=== PATIENT | female | born 1955 | race African-American/Black ===

== ENCOUNTER 2016-04-03 12:55 | Emergency (ER) | payer OTHER ==
[~2016-04-03] VITALS: Wt 132.0 kg
[~2016-04-03 12:55] MED LIST: ALLO300T2 PO; ALPR2TAB PO; AMIO200T2 PO; ATEN50TA PO; CALCITROL; FURO20TA3 PO; KEN1O TOP; LEVO75TA5 PO; OMEP20CA16 PO; POTA10TA37 PO; RIVA15TA PO; VITAMIN D PO
[2016-04-03] MEDS ORDERED: CLOPIDOGREL 75 MG TAB PO ONE (15:00)
[2016-04-03 15:34] LABS: BASOPHILS % 0.7 % (0.0-2.0); EOSINOPHILS # 0.1 10^3/ul (0.0-0.5); EOSINOPHILS % 2.6 % (0.0-7.0); HEMATOCRIT 36.5 % (37.0-47.0); HEMOGLOBIN 11.7 g/dl (12.0-16.0); LYMPHOCYTES # 1.2 10^3/ul (0.8-2.9); LYMPHOCYTES % 20.2 % (15.0-51.0); MEAN CORPUSCULAR HEMOGLOBIN 27.6 pg (29.0-33.0); MEAN CORPUSCULAR HGB CONC 32.2 g/dl (32.0-37.0); MEAN CORPUSCULAR VOLUME 85.8 fl (82.0-101.0); MEAN PLATELET VOLUME 9.1 fl (7.4-10.4); MONOCYTE # 0.4 10^3/ul (0.3-0.9); MONOCYTES % 6.8 % (0.0-11.0); NEUTROPHILS % 69.7 % (39.0-77.0); PLATELET COUNT 263 10^3/UL (140-440); RED BLOOD COUNT 4.25 10^6/ul (4.20-5.40); RED CELL DISTRIBUTION WIDTH 17.2 % (11.5-14.5); UNCORRECTED WBC 5.8 10^3/ul (4.8-10.8); WHITE BLOOD COUNT 5.8 10^3/ul (4.8-10.8)
--- NOTE | 2016-04-03 15:48 | RADRPT ---
PROCEDURE: XR Chest. CLINICAL INDICATION: Chest pain TECHNIQUE: Chest AP portable. COMPARISON: 10/24/2014 FINDINGS: Left-sided dual lead pacemaker. The mediastinal structures are unremarkable. There is calcification of the thoracic aorta (consiste nt with atherosclerosis). There is mild cardiomegaly. The pulmonary vascularity is normal. The bharat ng holm are unremarkable. No consolidation is identified. The pleural spaces are unremarkable. The osseous structures are unremarkable. IMPRESSION: Calcification of the thoracic aorta (consistent with atherosclerosis) Mild cardiomegaly No active intrathoracic disease RPTAT: HGDB .Shamir Gonzalez MD, Date Time Electronically viewed and signed by .Shamir Gonzalez MD, on 04/03/2016 15:47 .B/
[2016-04-03 15:56] LABS: CONDITION 1; LH ANALYZER COMMENTS 1
[2016-04-03 16:00] LABS: CHLORIDE 101 mmol/L (97-110); POTASSIUM 4.4 mmol/L (3.5-5.1); SODIUM 143 mmol/L (135-144)
[2016-04-03 16:03] LABS: ANION GAP 12 (8-16); BLOOD UREA NITROGEN 25 mg/dl (7-20); CALCIUM 9.7 mg/dl (8.4-10.2); CARBON DIOXIDE 34 mmol/L (21-31); CREATININE 1.83 mg/dl (0.44-1.00); GLUCOSE 102 mg/dl (70-220)
[2016-04-03 16:18] LABS: TROPONIN-I < 0.012 ng/ml (0.00-0.12)
[2016-04-03] MEDS ORDERED: morphine 10 MG INJ IV ONE (16:30)
[2016-04-03 17:45] LABS: INR 1.15; PROTIME 14.7 Sec (12.2-14.2); PT RATIO 1.1
[2016-04-03 17:46] LABS: CREATINE KINASE 47 IU/L (23-200); PARTIAL THROMBOPLASTIN TIME 31.5 Sec (25.0-35.0)
[2016-04-03 17:56] LABS: CK-MB 0.29 ng/ml (0.0-2.4)
[2016-04-03] MEDS ORDERED: DICLOFENAC SODIUM 37.5 MG/ML VIAL IV STA (18:04)
[2016-04-03 18:18] LABS: TROPONIN-I < 0.012 ng/ml (0.00-0.12)
[2016-04-03] MEDS ORDERED: HYDR-906 PO (19:26)
[2016-04-03] MEDS ORDERED: NAPR-688 PO (19:26)
[2016-04-03 19:40] VITALS: BP 144/90; PULSE 80; RESP 17; TEMP 98
--- NOTE | 2016-04-03 19:40 | ERD ---
ER Documentation Chief Complaint Date/Time DATE: 04/03/16 TIME: 19:29 Chief Complaint CHEST PAIN X2 DAYS, NO SOB, HX OF A-FIB, MO HPI This 60-year-old female presented with 2 days of left-sided chest pain made worse by moving her arm and pushing on it. States that she also started working out recently. Patient does have a sense of cardiac history including myocardial infarction and has a pacemaker. Denies any shortness of breath nausea or vomiting. ROS All systems reviewed and are negative except as per history of present illness. Medications Home Meds Active Scripts Hydrocodone/Acetaminophen ([place] 5-325 Tablet) 1 Each Tablet, 1 EACH PO Q6, #18 TAB Prov:RAHEELPATRICIA DO 04/03/16 Naproxen* (Naproxen*) 500 Mg Tablet, 500 MG PO BID, #20 TAB Prov:RAHEELPATRICIA DO 04/03/16 Amiodarone Hcl* (Amiodarone Hcl*) 200 Mg Tablet, 200 MG PO DAILY for 30 Days, TAB Prov:YUVAL VOGT VICE PRESIDENT MEDIA RELATIONS 10/25/14 Furosemide* (Furosemide*) 20 Mg Tablet, 20 MG PO DAILY for 30 Days, TAB Prov:YUVAL VOGT VICE PRESIDENT MEDIA RELATIONS 10/25/14 Rivaroxaban* (Xarelto*) 15 Mg Tablet, 15 MG PO WITH DINNER for 30 Days Prov:DESTINI BRAXTON 08/23/14 Reported Medications [Vitamin D] No Conflict Check, PO DAILY 01/01/16 [Calcitrol] No Conflict Check, DAILY 01/01/16 Triamcinolone Acetonide* (Kenalog*) 0.1%-15GM Oint, 1 APPLIC TOP BID, EA 10/10/14 Potassium Chloride* (K-Dur*) 10 Meq Tab.prt.sr, 10 MEQ PO DAILY, TAB 08/22/14 Levothyroxine Sodium* (Levothyroxine Sodium*) 75 Mcg Tablet, 75 MCG PO AC BREAKFAST, TAB 08/22/14 Atenolol* (Atenolol*) 50 Mg Tablet, 50 MG PO DAILY, TAB 08/22/14 Alprazolam* (Xanax*) 2 Mg Tablet, 2 MG PO DAILY Y for ANXIETY, TAB 08/22/14 Allopurinol* (Allopurinol*) 300 Mg Tablet, 300 MG PO DAILY, TAB 08/22/14 Omeprazole* (Omeprazole*) 20 Mg Capsule.dr, 20 MG PO BID, CAP 01/18/14 Allergies Allergies: Coded Allergies: aspirin (Verified Allergy, Mild, INTOLERANCE, 01/01/16) enalaprilat (Verified Allergy, Mild, COUGHING, 01/01/16) tramadol (Verified Allergy, Unknown, VOMITTING, 01/01/16) PMhx/Soc History of Surgery: Yes (BRAIN TUMOR REMOVED,PACEMAKER INSERTION) Anesthesia Reaction: No Hx Neurological Disorder: No Hx Respiratory Disorders: Yes (ATHMA) Hx Cardiac Disorders: Yes (MO ?, STROKE WITH RT SIDED WEAKNESS,A FIB) Hx Psychiatric Problems: No Hx Miscellaneous Medical Probl: Yes (INSOMNIA) Hx Alcohol Use: No Hx Substance Use: No Hx Tobacco Use: Yes (QUIT 20 YRS AGO) Smoking Status: Unknown if ever smoked Physical Exam Vitals Vital Signs Date Time Temp Pulse Resp B/P Pulse Ox O2 Delivery O2 Flow Rate FiO2 04/03/16 18:37 98.0 71 17 140/72 98 Room Air 04/03/16 16:05 Nasal Cannula 3 04/03/16 13:03 97.8 74 17 173/94 98 Physical Exam Const: [] No distress Head: Atraumatic Eyes: Normal Conjunctiva ENT: Normal External Ears, Nose and Mouth. Neck: Full range of motion..~ No meningismus. Resp: Clear to auscultation bilaterally Cardio: Regular rate and rhythm, no murmurs Chest wall exam: Tenderness to palpation over left costochondral junction. Pain reproduced by flexion against resistance of left arm. Abd: Soft, non tender, non distended. Normal bowel sounds Skin: No petechiae or rashes Back: No midline or flank tenderness Ext: No cyanosis, or edema Neur: Awake and alert and oriented 3, no focal deficits Psych: Normal Mood and Affect Result Diagram: 04/03/16 1514 04/03/16 1514 Results 24 hrs Laboratory Tests Test 04/03/16 15:14 04/03/16 17:00 Anion Gap 12 Basophils # 0.010^3/ul Basophils % 0.7% Blood Morphology Comment Blood Urea Nitrogen 25mg/dl Calcium Level 9.7mg/dl Carbon Dioxide Level 34mmol/L Chloride Level 101mmol/L Creatinine 1.83mg/dl Eosinophils # 0.110^3/ul Eosinophils % 2.6% Glucose Level 102mg/dl Hematocrit 36.5% Hemoglobin 11.7g/dl Lymphocytes # 1.210^3/ul Lymphocytes % 20.2% Mean Corpuscular Hemoglobin 27.6pg Mean Corpuscular Hemoglobin Concent 32.2g/dl Mean Corpuscular Volume 85.8fl Mean Platelet Volume 9.1fl Monocytes # 0.410^3/ul Monocytes % 6.8% Neutrophils # 4.010^3/ul Neutrophils % 69.7% Nucleated Red Blood Cells # 0.010^3/ul Nucleated Red Blood Cells % 0.0/100WBC Platelet Count 41530^3/UL Potassium Level 4.4mmol/L Red Blood Count 4.2510^6/ul Red Cell Distribution Width 17.2% Sodium Level 143mmol/L Troponin I < 0.012ng/ml < 0.012ng/ml White Blood Count 5.810^3/ul Activated Partial Thromboplast Time 31.5Sec Creatine Kinase 47IU/L Creatine Kinase Index 0.6 Creatinine Kinase MB (Mass) 0.29ng/ml INR International Normalized Ratio 1.15 Prothrombin Time 14.7Sec Prothrombin Time Ratio 1.1 Current Medications Medications (Trade) Dose Ordered Sig/Vidhi Route PRN Reason Start Time Stop Time Status Last Admin Dose Admin Clopidogrel Bisulfate (plaVIX) 300 mg ONCE ONCE PO 04/03/16 15:00 04/03/16 15:01 DC 04/03/16 15:23 Morphine Sulfate (morphine) 6 mg ONCE ONCE IV 04/03/16 16:30 04/03/16 16:31 DC 04/03/16 16:35 Diclofenac Sodium (Dyloject) 37.5 mg ONCE STAT IV 04/03/16 18:04 04/03/16 18:05 DC 04/03/16 18:18 Procedures/MDM Likely acute costochondritis. Physical exam and history are consistent with costochondritis with newly working out with weights as well as reproducible chest pain that is worse with arm movement. Patient does have extensive cardiac history for cardiac workup was performed including a 2 set of troponin both of which were undetectable in the blood. Patient had a paced EKG. creatinine is elevated but at baseline. Very mildly elevated white count however no signs of infection. Going to discharge with naproxen, [place]. Primary care follow-up with the next couple of days. Do not believe the patient is currently experiencing acute coronary syndrome but I have told her return emergency room for any acute change. EKG interpretation: Paced rhythm of 70, no further interpretation possible monitoring engineer interpretation: Paced rhythm rate of 70 Chest x-ray interpretation: No acute process no infiltrate no widened mediastinum, no pulmonary edema, no fractures per Departure Diagnosis: Primary Impression: Costochondritis, acute Additional Impression: Chest pain Condition: Stable Patient Instructions: Chest Pain, Uncertain Cause, Chest Wall Pain, Costochondritis Additional Instructions: Call your primary care doctor TOMORROW for an appointment during the next 2-3 days.See the doctor sooner or return here if your condition worsens before your appointment time. PATRICIA PICKERING DO Apr 03, 2016 19:39
== END 2016-04-03 19:41 | disposition home or self-care (01) ==
LOC: E/R 12:55
DX: M94.0 Chondrocostal junction syndrome [Tietze] (principal); J45.909 Unspecified asthma, uncomplicated; E03.9 Hypothyroidism, unspecified; Z95.0 Presence of cardiac pacemaker
CPT/HCPCS: 36415; 71010; 80048; 82550; 82553; 84484; 85025; 85610; 85730; 93005; 96374; 96375; J2270; Z7502; Z7610

== ENCOUNTER 2016-04-14 03:49 | Observation (INO) | payer OTHER ==
[~2016-04-14] VITALS: Ht 170.2 cm; Wt 132.9 kg
[2016-04-14] VITALS (9 sets, daily range): BP systolic 119–156; BP diastolic 56–86; PULSE 60–70; RESP 18–20; BMI 45.4
[~2016-04-14 03:49] MED LIST changes: +HYDR-906 PO; +NAPR-688 PO
[2016-04-14] MEDS ORDERED: morphine 2 MG INJ IV PRN (12:00)
[2016-04-14] MEDS ORDERED: ONDANSETRON 4 MG TAB PO PRN (12:00)
[2016-04-14] MEDS ORDERED: NITROGLYCERIN (SL) 0.4 MG TAB SL PRN (12:00)
[2016-04-14] MEDS ORDERED: DOCUSATE SODIUM 100 MG CAP PO PRN (12:00)
[2016-04-14] MEDS ORDERED: HYDROCODONE/APAP (5/325) TAB PO PRN ×2 (12:00→23:00)
[2016-04-14] MEDS ORDERED: NACL 0.9% 3 ML SYG IV SCH (12:00)
[2016-04-14] MEDS ORDERED: ALPRAZOLAM 1 MG TAB PO PRN (12:00)
[2016-04-14 13:19] LABS: CREATINE KINASE 61 IU/L (23-200)
[2016-04-14] MEDS: AMIODARONE 200 MG TAB PO SCH (13:25)
[2016-04-14] MEDS: ATENOLOL 50 MG TAB PO SCH (13:25)
[2016-04-14 13:31] LABS: CK-MB 1.35 ng/ml (0.0-2.4)
[2016-04-14 13:46] LABS: TROPONIN-I < 0.012 ng/ml (0.00-0.12)
--- NOTE | 2016-04-14 15:16 | CONS ---
Date/Time of Note Date/Time of Note DATE: 04/14/16 TIME: 15:07 Assessment/Plan Assessment/Plan Additional Assessment/Plan Chest wall and back pain Hypertension Paroxysmal atrial fibrillation History of pacemaker -Patient with reproducible chest pain with touching back and chest wall. Denies exertional component in symptoms with left arm movements. Troponins from outside facility were negative, d-dimer was 469 which is in the normal range for their facility. Hemoglobin 10.9. Current troponin at our facility is negative. Symptoms do not appear cardiac in origin. Would evaluate other noncardiac causes of patient's back and chest pain. Consultation Date/Type/Reason Admit Date/Time Apr 14, 2016 at 08:26 Type of Consultation: cv Reason for Consultation Back and chest pain Hx of Present Illness This is a 60-year-old female with past medical history of pacemaker, paroxysmal atrial fibrillation, hypertension who presents with back and left-sided chest pain. Pain has been off and on over the past week and a half. Pain is sharp in nature, worse with movement of the left arm, leaning to the left side, touching her back and touching her chest. Exertion does not improve or worsen her symptoms. She denies any dizziness, lightheadedness, palpitations, abdominal pain. 12 point review of systems was performed with all pertinent positives and negatives mentioned above and all else is negative Past Medical History Paroxysmal atrial fibrillation Hypertension Chronic kidney disease Past Surgical History Past Surgical Hx: other (Pacemaker) Exam/Review of Systems Vital Signs Vitals Vital Signs Date Time Temp Pulse Resp B/P Pulse Ox O2 Delivery O2 Flow Rate FiO2 04/14/16 12:55 60 04/14/16 11:48 98.2 20 125/72 96 04/14/16 08:45 Room Air Exam No apparent distress Constitutional: alert, obese, oriented Head: normocephalic Neck: supple Respiratory: other (Coarse breath sounds bilaterally, no wheezing) Cardiovascular: other (S1-S2 heard, no murmurs appreciated), regular rate and rhythm Gastrointestinal: bowel sounds, non-tender, other (No guarding), soft Musculoskeletal: other (Pain with palpation of left sided chest wall, left back and movement of left arm.) Extremities: edema (Trace), other (No cyanosis) Results Results 24 hrs Laboratory Tests Test 04/14/16 12:52 Creatine Kinase 61 Creatine Kinase Index 2.2 Creatinine Kinase MB (Mass) 1.35 Troponin I < 0.012 Medications Medications Current Medications Allopurinol (Zyloprim) 300 mg DAILY PO ; Start 04/15/16 at 09:00 Alprazolam (Xanax) 2 mg DAILY PRN PO ANXIETY; Start 04/14/16 at 12:00 Amiodarone HCl (Cordarone) 200 mg DAILY PO Last administered on 04/14/16 13:25 ; Admin Dose 200 MG; Start 04/14/16 at 12:00 Atenolol (Tenormin) 50 mg DAILY PO Last administered on 04/14/16 13:25; Admin Dose 50 MG; Start 04/14/16 at 12:00 Furosemide (Lasix) 20 mg DAILY PO ; Start 04/15/16 at 09:00 Acetaminophen/ Hydrocodone Bitart ([place] (5/325)) 1 tab Q6 PRN PO pain; Start 04/14/16 at 12:00 Triamcinolone Acetonide (Kenalog 0.1% Oint) 1 applic BID TOP ; Start 04/14/16 at 21:00 Pantoprazole (Protonix Tab) 40 mg BID@06,18 PO ; Start 04/15/16 at 06:00 Ondansetron HCl (Zofran Tab) 4 mg Q6H PRN PO NAUSEA AND/OR VOMITING; Start 04/14 at 12:00 Nitroglycerin (Nitroglycerin (Sl Tab) 0.4 Mg) 1 tab Q5M PRN SL CHEST PAIN; Start 04/14/16 at 12:00 Morphine Sulfate (morphine) 1 mg Q4H PRN IV PAIN LEVEL 7-10; Start 04/14/16 at 12:00 Docusate Sodium (Colace) 100 mg Q12H PRN PO CONSTIPATION; Start 04/14/16 at 12: 00 Procedures Procedures Telemetry with a paced rhythm Madi Lewis DO Apr 14, 2016 15:16
--- NOTE | 2016-04-14 16:17 | HP ---
DATE OF ADMISSION: 04/14/2016 MEDICAL AIDE: Transcription Coordinator. CHIEF COMPLAINT: Chest discomfort and body aches. HISTORY OF PRESENT ILLNESS: This is a pleasant 60-year-old female with a past medical history of go ut, anxiety, arrhythmias, hypertension, hypothyroidism, GERD, osteoarthritis, paroxysmal atrial fibr illation, on anticoagulation, vitamin D deficiency, and morbid obesity, who was seen and evaluated a t an outside facility secondary to having chest discomfort and the patient was seen and evaluated in the emergency room on 04/03/2016 secondary to having costochondritis, and has not been able to work out since then. Then this morning she had difficulty with any type of movement secondary to having this chest discomfort, which is in her anterior left side below her breasts, which radiates to her back. It is not accompanied with any diaphoresis or shortness of breath. The patient has been comp liant with her medications. Her EKG at that facility was not provided from the other facility at th is time, but is being obtained. At this time the patient denies having any shortness of breath, hea dache, dizziness or lightheadedness. No changes in visual acuity, diplopia or photophobia. No abdo noman pain. No nausea, vomiting or diarrhea. No change in the color of her stool. No recent trave l history. No sick contact or any other discomfort. PAST MEDICAL AND SURGICAL HISTORY: As above, per HPI. MEDICATIONS: 1. Allopurinol. 2. Xanax. 3. Amiodarone. 4. Atenolol. 5. Lasix. 6. [place]. 7. Levothyroxine. 8. Naproxen. 9. Omeprazole. 10. K-Dur. 11. Xarelto. 12. Kenalog. 13. Calcitriol. 14. Vitamin D. ALLERGIES: 1. ASPIRIN. 2. . 3. TRAMADOL. SOCIAL HISTORY: Negative x3 for smoking, alcohol or illicit drugs. She is and has 2 kids. REVIEW OF SYSTEMS: As above, per HPI. Otherwise 12 review of systems was found to be negative. PHYSICAL EXAMINATION: VITAL SIGNS: Temperature 98.2, pulse 62, respirations 20, blood pressure 125/72, oxygen 96% on room air. GENERAL APPEARANCE: Patient is lying in bed comfortably, without any distress. She is awake, alert and oriented. She is able to answer my questions properly. EYES AND ENT: Conjunctivae and lids are normal. Pupils are normal. Extraocular is normal. Hearin g is grossly normal. Lips are normal. Oral mucosa is moist. NECK: Supple. Trachea is midline. No lymphadenopathy. RESPIRATORY: Respiratory effort is normal. Clear to auscultate bilaterally. CARDIOVASCULAR: Normal S1, S2. Regular rhythm and rate. No murmur, no bruits, no edema. Peripher al pulses and radial pulses are palpable. Cap refill is normal. CHEST: Normal expansion of the thorax during inspiration. Difficulty with mobility secondary to pa in in the upper back that is sharp. Any type of sharp movement the patient has pain in her back are a. The pain is reproducible on palpation of anterior or posterior thorax. ABDOMEN: Contour is morbidly obese. Bowel sounds present. No guarding, no rebound. GENITOURINARY: Deferred. MUSCULOSKELETAL: Upper and lower extremities are within normal limits. Full range of motion. Stre ngth 5/5 in both upper and lower extremities. NEUROLOGIC: Cranial nerves II through XII are grossly intact. PSYCHIATRIC: Normal judgment and insight. Alert and oriented x3. Mood and affect is normal. Body habitus . NEUROLOGIC: Cranial nerves II through XII are grossly intact. PSYCHIATRIC: Normal judgment and insight. Alert and oriented x3. Mood and affect is normal. LABORATORY WORK AND IMAGING: Troponin negative. Troponin at [facility] was negative. WBC 7.4, hemoglobin 10.9, hematocrit 33.9, platelets 245, BUN 28, creatinine 2.91, GFR 20, albumin 3.4, INR 1.6. Sodium 137, potassium 4.2, chloride 103, bicarbonate 27. ASSESSMENT AND PLAN: 1. Atypical chest pain, likely costochondritis. The patient has been admitted to rule out acute co ronary syndrome. Cardiology has been consulted. 2. Renal insufficiency. Her creatinine is at baseline. Will continue to monitor. 3. Essential hypertension. Well controlled on medical management. 4. History of atrial fibrillation. Continue atenolol and Xarelto. 5. Hypothyroidism. Continue levothyroxine. 6. Gastroesophageal reflux disease. Continue omeprazole. Will continue to monitor the patient closely. Further recommendations, management and treatment as per clinical course. Total amount of time spent for this patient's admission workup was 40 minutes. Dictated By: ABILIO DICKEY MD PN/NTS Conf#: [id number] DID#: [id number]
[2016-04-14] MEDS ORDERED: RIVAROXABAN 15 MG TABLET PO SCH (18:05)
[2016-04-14 18:58] LABS: CREATINE KINASE 131 IU/L (23-200)
[2016-04-14 19:08] LABS: CK-MB 2.31 ng/ml (0.0-2.4)
[2016-04-14 19:12] LABS: TROPONIN-I < 0.012 ng/ml (0.00-0.12)
[2016-04-14] MEDS: TRIAMCINOLONE ACET 0.1% 15 GM OINT TOP SCH (21:00)
[2016-04-14] MEDS: CYCLOBENZAPRINE 10 MG TAB PO SCH (21:06)
[2016-04-14] MEDS ORDERED: HYDROCODONE/APAP (5/325) TAB PO ONE (23:00)
[2016-04-15] VITALS (7 sets, daily range): BP systolic 111–130; BP diastolic 58–69; PULSE 60–69; RESP 16–20; Ht 170.2 cm; Wt 132.9 kg
[2016-04-15] MEDS ORDERED: PANTOPRAZOLE (EC) 40 MG TAB PO SCH (06:00)
[2016-04-15 07:17] LABS: POTASSIUM 4.5 mmol/L (3.5-5.1)
[2016-04-15 07:20] LABS: CREATININE 2.51 mg/dl (0.44-1.00)
[2016-04-15 07:21] LABS: CALCIUM 8.9 mg/dl (8.4-10.2); CHOL/HDL RATIO 3.5 RATIO; MAGNESIUM 2.3 mg/dl (1.7-2.5)
[2016-04-15] MEDS ORDERED: LEVOTHYROXINE 75 MCG TAB PO SCH (07:30)
[2016-04-15 07:45] LABS: THYROID STIMULATING HORMONE 1.94 MIU/L (0.465-4.680)
[2016-04-15] MEDS: AMIODARONE 200 MG TAB PO SCH (08:36)
[2016-04-15] MEDS: ATENOLOL 50 MG TAB PO SCH (08:37)
[2016-04-15] MEDS: CYCLOBENZAPRINE 10 MG TAB PO SCH ×2 (08:37→15:49)
[2016-04-15] MEDS: TRIAMCINOLONE ACET 0.1% 15 GM OINT TOP SCH (08:46)
[2016-04-15] MEDS ORDERED: FUROSEMIDE 20 MG TAB PO SCH (09:00)
[2016-04-15] MEDS ORDERED: ALLOPURINOL 300 MG TAB PO SCH (09:00)
--- NOTE | 2016-04-15 11:52 | PN ---
Date/Time of Note Date/Time of Note DATE: 04/15/16 TIME: 11:50 Assessment/Plan VTE Prophylaxis VTE Prophylaxis Intervention: SCD's Lines/Catheters IV Catheter Type (from Nrs): Saline Lock Assessment/Plan Assessment/Plan 1. Atypical chest pain, likely costochondritis. The patient has been admitted to rule out acute coronary syndrome. Cardiology has been consulted. 2. Renal insufficiency. Her creatinine is at baseline. Will continue to monitor. 3. Essential hypertension. Well controlled on medical management. 4. History of atrial fibrillation. Continue atenolol and Xarelto. 5. Hypothyroidism. Continue levothyroxine. 6. Gastroesophageal reflux disease. Continue omeprazole. possible d/c home if ok with cardiology Subjective 24 Hr Interval Summary Free Text/Dictation s/p Cardiology Consult, inSR,troponins negative Exam/Review of Systems Vital Signs Vitals Vital Signs Date Time Temp Pulse Resp B/P Pulse Ox O2 Delivery O2 Flow Rate FiO2 04/15/16 08:55 60 04/15/16 08:35 98.2 16 130/69 95 Room Air Intake and Output 04/14/16 04/14/16 04/15/16 15:00 23:00 07:00 Intake Total 720 ml 550 ml Balance 720 ml 550 ml Exam No apparent distress Constitutional: alert, obese, oriented Head: normocephalic Neck: supple Respiratory: other (Coarse breath sounds bilaterally, no wheezing) Cardiovascular: other (S1-S2 heard, no murmurs appreciated), regular rate and rhythm Gastrointestinal: bowel sounds, non-tender, other (No guarding), soft Musculoskeletal: other (Pain with palpation of left sided chest wall, left back and movement of left arm.) Extremities: edema (Trace), other (No cyanosis) Results Result Diagram: 04/15/16 0640 Results 24 hrs Laboratory Tests Test 04/14/16 12:52 04/14/16 18:35 04/15/16 06:40 Creatine Kinase 61 131 Creatine Kinase Index 2.2 1.8 Creatinine Kinase MB (Mass) 1.35 2.31 Troponin I < 0.012 < 0.012 Anion Gap 14 Blood Urea Nitrogen 30 H Calcium Level 8.9 Carbon Dioxide Level 28 Chloride Level 104 Cholesterol Level 197 Cholesterol/HDL Ratio 3.5 Creatinine 2.51 H Glucose Level 120 HDL Cholesterol 56 LDL Cholesterol, Calculated 121 Magnesium Level 2.3 Potassium Level 4.5 Sodium Level 141 Thyroid Stimulating Hormone (TSH) 1.940 Triglycerides Level 99 Medications Medications Current Medications Allopurinol (Zyloprim) 300 mg DAILY PO Last administered on 04/15/16 08:44; Admin Dose 300 MG; Start 04/15/16 at 09:00 Alprazolam (Xanax) 2 mg DAILY PRN PO ANXIETY; Start 04/14/16 at 12:00 Amiodarone HCl (Cordarone) 200 mg DAILY PO Last administered on 04/15/16 08:36 ; Admin Dose 200 MG; Start 04/14/16 at 12:00 Atenolol (Tenormin) 50 mg DAILY PO Last administered on 04/15/16 08:37; Admin Dose 50 MG; Start 04/14/16 at 12:00 Furosemide (Lasix) 20 mg DAILY PO Last administered on 04/15/16 08:44; Admin Dose 20 MG; Start 04/15/16 at 09:00 Triamcinolone Acetonide (Kenalog 0.1% Oint) 1 applic BID TOP ; Start 04/14/16 at 21:00 Pantoprazole (Protonix Tab) 40 mg BID@06,18 PO Last administered on 04/15/16 06 :20; Admin Dose 40 MG; Start 04/15/16 at 06:00 Ondansetron HCl (Zofran Tab) 4 mg Q6H PRN PO NAUSEA AND/OR VOMITING; Start 04/14 at 12:00 Nitroglycerin (Nitroglycerin (Sl Tab) 0.4 Mg) 1 tab Q5M PRN SL CHEST PAIN; Start 04/14/16 at 12:00 Morphine Sulfate (morphine) 1 mg Q4H PRN IV PAIN LEVEL 7-10; Start 04/14/16 at 12:00 Docusate Sodium (Colace) 100 mg Q12H PRN PO CONSTIPATION; Start 04/14/16 at 12: 00 Cyclobenzaprine HCl (Flexeril) 10 mg TID PO Last administered on 04/15/16 08:37 ; Admin Dose 10 MG; Start 04/14/16 at 21:00; Stop 04/15/16 at 17:00 Acetaminophen/ Hydrocodone Bitart ([place] (5/325)) 2 tab Q6H PRN PO pain; Start 04/14/16 at 23:00 SOPHIA KAUR MD Apr 15, 2016 11:52
--- NOTE | 2016-04-15 11:53 | PDOCDIS ---
Discharge Instructions CONDITION Patient Condition: Good HOME CARE INSTRUCTIONS: Special Diet: regular ACTIVITY: Activity Restrictions: Slowly Increase Activity Rest between Activity Avoid heavy lifting Avoid Heavy Housework FOLLOW UP/APPOINTMENTS Appointments follow up with her own PMD through HMO insurance in 1-2 week,. Follow up with cardiology as outpatient in 2-3 week after discharge SOPHIA KAUR MD Apr 15, 2016 11:53
--- NOTE | 2016-04-15 13:43 | RADRPT ---
Vent Rate: 70 bpm RR Interval: 0 msec WV Interval: 250 msec QRS Duration: 164 msec QT Interval: 464 msec QTC Interval: 501 msec P-R-T [place]: 87 - -72 - 93 degrees AV sequential or dual chamber electronic pacemaker Electronically Signed By: Joshua Maldonado [id number]
--- NOTE | 2016-04-15 14:30 | CONS ---
Date/Time of Note Date/Time of Note DATE: 04/15/16 TIME: 14:29 Assessment/Plan Assessment/Plan Additional Assessment/Plan Chest wall and back pain Hypertension Paroxysmal atrial fibrillation History of pacemaker -Chest wall and back pain much better after muscle relaxants and pain medication. Serial cardiac enzymes remain negative. Symptoms unlikely to be cardiac in origin. No further inpatient cardiac workup needed at the current time. Consultation Date/Type/Reason Admit Date/Time Apr 14, 2016 at 08:26 Initial Consult Date Type of Consultation: cv 24 HR Interval Summary Free Text/Dictation Patient seen and examined. Chest and back pain much better after current medication regimen Exam/Review of Systems Vital Signs Vitals Vital Signs Date Time Temp Pulse Resp B/P Pulse Ox O2 Delivery O2 Flow Rate FiO2 04/15/16 12:40 60 04/15/16 08:35 98.2 16 130/69 95 Room Air Intake and Output 04/14/16 04/14/16 04/15/16 15:00 23:00 07:00 Intake Total 720 ml 550 ml Balance 720 ml 550 ml Exam No apparent distress Constitutional: alert, obese, oriented Head: normocephalic Neck: supple Respiratory: other (Coarse breath sounds bilaterally, no wheezing) Cardiovascular: other (S1-S2 heard), regular rate and rhythm Gastrointestinal: bowel sounds, non-tender, other (No guarding), soft Extremities: edema (Trace) Results Result Diagram: 04/15/16 0640 Results 24 hrs Laboratory Tests Test 04/14/16 18:35 04/15/16 06:40 Creatine Kinase 131 Creatine Kinase Index 1.8 Creatinine Kinase MB (Mass) 2.31 Troponin I < 0.012 Anion Gap 14 Blood Urea Nitrogen 30 H Calcium Level 8.9 Carbon Dioxide Level 28 Chloride Level 104 Cholesterol Level 197 Cholesterol/HDL Ratio 3.5 Creatinine 2.51 H Glucose Level 120 HDL Cholesterol 56 LDL Cholesterol, Calculated 121 Magnesium Level 2.3 Potassium Level 4.5 Sodium Level 141 Thyroid Stimulating Hormone (TSH) 1.940 Triglycerides Level 99 Medications Medications Current Medications Allopurinol (Zyloprim) 300 mg DAILY PO Last administered on 04/15/16 08:44; Admin Dose 300 MG; Start 04/15/16 at 09:00 Alprazolam (Xanax) 2 mg DAILY PRN PO ANXIETY; Start 04/14/16 at 12:00 Amiodarone HCl (Cordarone) 200 mg DAILY PO Last administered on 04/15/16 08:36 ; Admin Dose 200 MG; Start 04/14/16 at 12:00 Atenolol (Tenormin) 50 mg DAILY PO Last administered on 04/15/16 08:37; Admin Dose 50 MG; Start 04/14/16 at 12:00 Furosemide (Lasix) 20 mg DAILY PO Last administered on 04/15/16 08:44; Admin Dose 20 MG; Start 04/15/16 at 09:00 Triamcinolone Acetonide (Kenalog 0.1% Oint) 1 applic BID TOP ; Start 04/14/16 at 21:00 Pantoprazole (Protonix Tab) 40 mg BID@18 PO Last administered on 04/15/16 06 :20; Admin Dose 40 MG; Start 04/15/16 at 06:00 Ondansetron HCl (Zofran Tab) 4 mg Q6H PRN PO NAUSEA AND/OR VOMITING; Start 04/14 at 12:00 Nitroglycerin (Nitroglycerin (Sl Tab) 0.4 Mg) 1 tab Q5M PRN SL CHEST PAIN; Start 04/14/16 at 12:00 Morphine Sulfate (morphine) 1 mg Q4H PRN IV PAIN LEVEL 7-10; Start 04/14/16 at 12:00 Docusate Sodium (Colace) 100 mg Q12H PRN PO CONSTIPATION; Start 04/14/16 at 12: 00 Cyclobenzaprine HCl (Flexeril) 10 mg TID PO Last administered on 04/15/16 08:37 ; Admin Dose 10 MG; Start 04/14/16 at 21:00; Stop 04/15/16 at 17:00 Acetaminophen/ Hydrocodone Bitart ([place] (5/325)) 2 tab Q6H PRN PO pain; Start 04/14/16 at 23:00 Madi Lewis DO Apr 15, 2016 14:30
[2016-04-15] MEDS ORDERED: CYCL-319 PO (15:38)
--- NOTE | 2016-04-15 17:14 | DS ---
DATE OF ADMISSION: 04/14/2016 DATE OF DISCHARGE: 04/15/2016 FINAL DISCHARGE DIAGNOSES: 1. Atypical chest pain, likely secondary to acute costochondritis. 2. The patient is ruled out for acute coronary syndrome. 3. Chronic kidney disease. 4. History of hypertension. 5. History of atrial fibrillation. 6. Hypothyroidism. 7. Gastroesophageal reflux disease. CONSULTATIONS DONE DURING THIS HOSPITALIZATION: Cardiology consult, Dr. Madi Lewis. PROCEDURES PERFORMED DURING THIS HOSPITALIZATION: The patient had serial troponins and EKG negative for any acute coronary syndrome. HOSPITAL COURSE: This is a 60-year-old female with a past medical history of CVA, history of previo us bradycardia with pacemaker, atrial fibrillation, presented with a complaint of chest pain. [facility]. After having the cardiology evaluation, the pat ient had serial troponins and EKG negative for any acute coronary syndrome. Her chest pain was seco ndary to acute costochondritis. She remained hemodynamically stable and after getting a clearance f rom cardiology, she is getting discharged to home. DISPOSITION: To home. DISCHARGE CONDITION: Stable and improved compared to admission. DISCHARGE ACTIVITIES: As tolerated, slowly resume to the normal baseline activity. DISCHARGE DIET: Cardiac diet. DISCHARGE MEDICATIONS: As per medical reconciliation. DISCHARGE FOLLOWUP AND INSTRUCTIONS: The patient is to follow up with her own primary care doctor t [facility] insurance 1 to 2 weeks after discharge. She is also advised to follow up with cardiology as outpatient. She understood and verbalized understanding. She is continued on all of her previo us home medications on discharge. Dictated By: SOPHIA KAUR MD, KP/DEMETRIUS Conf#: [id number] DID#: [id number]
== END 2016-04-15 16:05 | disposition home or self-care (01) ==
LOC: MS4 08:26 → INTOOBSV 08:26
PROVIDERS: ADMIT Internal Medicine; ATTEND Internal Medicine
DX: R07.89 Other chest pain (principal); I10 Essential (primary) hypertension; I48.0 Paroxysmal atrial fibrillation; E03.9 Hypothyroidism, unspecified; K21.9 Gastro-esophageal reflux disease without esophagitis; Z79.01 Long term (current) use of anticoagulants; E55.9 Vitamin D deficiency, unspecified; F41.9 Anxiety disorder, unspecified
CPT/HCPCS: 80048; 80061; 82550; 82553; 83735; 84443; 84484; 93005; J2270; Z7500; Z7610; 99217; G0378

== ENCOUNTER 2016-05-17 08:33 | Emergency (ER) | payer OTHER ==
[~2016-05-17] VITALS: Ht 170.2 cm; Wt 130.0 kg
[~2016-05-17 08:33] MED LIST changes: +CYCL-319 PO
[2016-05-17 08:41] VITALS: Ht 170.2 cm; Wt 130.0 kg
[2016-05-17] MEDS ORDERED: ONDANSETRON (ODT) 4 MG TAB ODT STA (09:20)
[2016-05-17] MEDS ORDERED: HYDROCODONE/APAP (10/325) TAB PO ONE (09:30)
--- NOTE | 2016-05-17 10:18 | RADRPT ---
PROCEDURE: CT Abdomen and Pelvis without contrast. CLINICAL INDICATION: Abdominal pain. TECHNIQUE: CT scan of the abdomen and pelvis without contrast was performed on a multidetector hig h-resolution CT scanner. The patient was scanned without intravenous contrast. Coronal and sagittal reformatted images were obtained from the axial source images. Images were reviewed on a high-resol [employer] PACS workstation. One or more of the following dose reduction techniques were used: Automated exposure control, adjustment of the mA and/or kV according to patient size, use of iterative recon struction technique. The total exam CTDI equals 23.73 mGy and the total exam DLP equals 1444.45 mGy -cm. COMPARISON: None. FINDINGS: CT abdomen: Irregular scarring/atelectasis is present. Otherwise, the lung bases are clear. The heart size is normal, without pericardial thickening or effusion. The patient is status post gastric banding. The phi angle is 64 degrees (normal is 4 - 58 degrees) . There is no eccentric pouch dilatation. There is no evidence of erosion or free air. The esophagu s appears patulous with an air-fluid level partially imaged in the region of the mid esophagus. The liver is normal in size and density without focal mass or intrahepatic biliary dilatation. The spleen is normal in size and homogeneous in density. The pancreas as visualized is normal. The gal lbladder and biliary tree are unremarkable and there is no evidence for biliary dilatation. The adr enal glands are symmetric and normal. A 4.7 meters simple appearing cyst is present at the superior pole of the right kidney. Otherwise, the kidneys are symmetrically unremarkable as well. No renal calculus or obstructive uropathy or mass lesion is seen. The aorta is of normal caliber. Heavy aortoiliac atherosclerotic calcifications are present. There is no retroperitoneal lymphadenopathy. The zachary hepatis region is clear. The small bowel and mes entery, as visualized, are unremarkable. Small periumbilical fluid pockets are seen in the subcutane ous adipose tissue measuring up to 1.[address] pelvis: The small bowel loops situated within the pelvis are unremarkable. The pelvic organs are normal. T he pelvic sidewalls and inguinal regions are clear. The sigmoid colon and rectum are unremarkable. The appendix is normal. No mass, lymphadenopathy, or free fluid is seen. No acute inflammation is s een. The surrounding osseous structures are unremarkable. No osteolytic or osteoblastic lesion is detec mamie. IMPRESSION: 1. Status post gastric band procedure. Widened phi angle of 64 degrees (normal range is 4 - 58 degr ees), consistent with possible mild band slippage / malpositioning. 2. Patulous esophagus with air-fluid level partially imaged within the mid esophagus, concerning fo r increased aspiration risk and possible stenosis at the level of the gastric band. RPTAT: JJ .Raz Coronado MD, MD Date Time Electronically viewed and signed by .Raz Coronado MD, on 05/17/2016 10:18 .A/
[2016-05-17 10:33] LABS: ADD UMIC YES; URINE BILIRUBIN (Dip) NEGATIVE (NEGATIVE); URINE BLOOD (Dip) NEGATIVE (NEGATIVE); URINE COLOR LT. YELLOW (YELLOW); URINE GLUCOSE (Dip) NEGATIVE (NEGATIVE); URINE KETONES (Dip) NEGATIVE (NEGATIVE); URINE LEUKOCYTE ESTERASE (Dip) TRACE (NEGATIVE); URINE NITRITE (Dip) NEGATIVE (NEGATIVE); URINE TOTAL PROTEIN (Dip) NEGATIVE (NEGATIVE); URINE UROBILINOGEN (Dip) 0.2 E.U./dL (0.1-1.0)
[2016-05-17] MEDS ORDERED: SYN112 PO (10:41)
[2016-05-17] MEDS ORDERED: ERGO500037 PO (10:42)
[2016-05-17] MEDS ORDERED: CALC0.5C4 PO (10:44)
[2016-05-17] MEDS ORDERED: CYCL-319 PO (10:45)
[2016-05-17] MEDS ORDERED: GABA300C16 PO (10:47)
[2016-05-17] MEDS ORDERED: FOLI-49 PO (10:49)
[2016-05-17] MEDS ORDERED: HYDR-902 PO (10:58)
[2016-05-17] MEDS ORDERED: ONDA4TAB14 PO (10:58)
[2016-05-17 11:33] LABS: URINE RBCS 0-2 /HPF (0)
--- NOTE | 2016-05-17 12:11 | ERD ---
ER Documentation Chief Complaint Date/Time DATE: 05/17/16 TIME: 12:09 Chief Complaint right flank pain onset 3 weeks ago HPI Patient is a 60-year-old female with hypertension and kidney stones who presents with right-sided flank pain. The symptoms started 3 weeks ago. The patient was told that it was "a muscle spasm". She has been trying Flexeril. She has a history of kidney stones and feels like this is another kidney stone. She denies urinary symptoms. She has no rash. She had labs drawn on Monday which showed a creatinine of 2.56 but on review of old medical record she has had a creatinine of 2.5 in the past. She was recently admitted on April 14, 2016 for chest pain. Upon review of old medical records the patient has multiple visits to the ER for various complaints. Her primary doctor is Dr. Júnior Paz. ROS All systems reviewed and are negative except as per history of present illness. Medications Home Meds Active Scripts Ondansetron (Ondansetron Odt) 4 Mg Tab.rapdis, 4 MG PO Q6H Y for NAUSEA AND/OR VOMITING, #30 TAB Prov:QUIANA LUQUE MD 05/17/16 Hydrocodone/Acetaminophen ([place] 10-325 Tablet) 1 Each Tablet, 1 TAB PO Q6H Y for PAIN, #7 TAB Prov:QUIANA LUQUE MD 05/17/16 Amiodarone Hcl* (Amiodarone Hcl*) 200 Mg Tablet, 200 MG PO DAILY for 30 Days, TAB Prov:YUVAL VOGT NP 10/25/14 Furosemide* (Furosemide*) 20 Mg Tablet, 20 MG PO DAILY for 30 Days, TAB Prov:YUVAL VOGT NP 10/25/14 Rivaroxaban* (Xarelto*) 15 Mg Tablet, 15 MG PO WITH DINNER for 30 Days Prov:DESTINI BRAXTON 08/23/14 Reported Medications Folic Acid* (Folic Acid*) 1 Mg Tablet, 1 MG PO DAILY, TAB 05/17/16 Gabapentin* (Gabapentin*) 300 Mg Capsule, 300 MG PO TID, #90 CAP 05/17/16 Cyclobenzaprine Hcl* (Cyclobenzaprine Hcl*) 10 Mg Tablet, 10 MG PO DAILY, #30 TAB 05/17/16 Calcitriol* (Calcitriol*) 0.5 Mcg Capsule, 0.5 MCG PO DAILY for 28 Days, #20 CAP 05/17/16 Ergocalciferol (Vitamin D2) (VITAMIN D2) 50,000 Unit Capsule, 65469 UNIT PO Q28D , CAP 05/17/16 Levothyroxine Sodium* (Levothyroxine Sodium*) 112 Mcg Tablet, 112 MCG PO BEFORE BREAKFAST, #30 TAB 05/17/16 Potassium Chloride* (K-Dur*) 10 Meq Tab.prt.sr, 10 MEQ PO DAILY, TAB 08/22/14 Atenolol* (Atenolol*) 50 Mg Tablet, 50 MG PO DAILY, TAB 08/22/14 Alprazolam* (Xanax*) 2 Mg Tablet, 2 MG PO DAILY Y for ANXIETY, TAB 08/22/14 Allopurinol* (Allopurinol*) 300 Mg Tablet, 300 MG PO DAILY, TAB 08/22/14 Omeprazole* (Omeprazole*) 20 Mg Capsule.dr, 20 MG PO DAILY, CAP 01/18/14 Discontinued Reported Medications [Vitamin D] No Conflict Check, PO DAILY 01/01/16 [Calcitrol] No Conflict Check, DAILY 01/01/16 Triamcinolone Acetonide* (Kenalog*) 0.1%-15GM Oint, 1 APPLIC TOP BID, EA 10/10/14 Levothyroxine Sodium* (Levothyroxine Sodium*) 75 Mcg Tablet, 75 MCG PO AC BREAKFAST, TAB 08/22/14 Discontinued Scripts Cyclobenzaprine Hcl* (Cyclobenzaprine Hcl*) 10 Mg Tablet, 10 MG PO TID, #60 TAB Prov:SOPHIA KAUR MD 04/15/16 Hydrocodone/Acetaminophen ([place] 5-325 Tablet) 1 Each Tablet, 1 EACH PO Q6, #18 TAB Prov:PATRICIA PICKERING DO 04/03/16 Naproxen* (Naproxen*) 500 Mg Tablet, 500 MG PO BID, #20 TAB Prov:PATRICIA PICKERING DO 04/03/16 Allergies Allergies: Coded Allergies: aspirin (Verified Allergy, Mild, INTOLERANCE, 05/17/16) enalaprilat (Verified Allergy, Mild, COUGHING, 05/17/16) tramadol (Verified Allergy, Unknown, VOMITTING, 05/17/16) PMhx/Soc History of Surgery: No Anesthesia Reaction: No Hx Neurological Disorder: Yes (CVA 4 yrs ago) Hx Respiratory Disorders: No Hx Cardiac Disorders: Yes (Ariel with pacemaker, Afib, [place] 4 yrs ago) Hx Psychiatric Problems: No Hx Miscellaneous Medical Probl: No Hx Alcohol Use: No Hx Substance Use: No Hx Tobacco Use: No Smoking Status: Unknown if ever smoked FmHx Family History: diabetes Physical Exam Vitals Vital Signs Date Time Temp Pulse Resp B/P Pulse Ox O2 Delivery O2 Flow Rate FiO2 05/17/16 08:41 98.1 70 18 159/90 99 Physical Exam Const: Mild distress secondary to pain Head: Atraumatic Eyes: Normal Conjunctiva ENT: Normal External Ears, Nose and Mouth. Neck: Full range of motion..~ No meningismus. Resp: Clear to auscultation bilaterally Cardio: Regular rate and rhythm, no murmurs Abd: Soft, non tender, non distended. Normal bowel sounds Skin: No petechiae or rashes Back: No midline or flank tenderness Ext: No cyanosis, or edema Neur: Awake and alert Psych: Normal Mood and Affect Results 24 hrs Laboratory Tests Test 05/17/16 10:20 Urine Color LT. YELLOW Urine Clarity CLEAR Urine pH 5.0 Urine Specific [place] <=1.005 Urine Ketones NEGATIVE Urine Nitrite NEGATIVE Urine Bilirubin NEGATIVE Urine Urobilinogen 0.2 E.U./dL Urine Leukocyte Esterase TRACE Urine Microscopic RBC 0-2/HPF Urine Microscopic WBC 0-2/HPF Urine Epithelial Cells RARE Urine Hemoglobin NEGATIVE Urine Glucose NEGATIVE% Urine Total Protein NEGATIVE Current Medications Medications (Trade) Dose Ordered Sig/Vidhi Route PRN Reason Start Time Stop Time Status Last Admin Dose Admin Acetaminophen/ Hydrocodone Bitart ([place] (10/325)) 1 tab ONCE ONCE PO 05/17/16 09:30 05/17/16 09:31 DC 05/17/16 09:28 Ondansetron HCl (Zofran Odt) 4 mg ONCE STAT ODT 05/17/16 09:20 05/17/16 09:21 DC 05/17/16 09:28 Procedures/MDM CT shows no acute kidney stone per radiology. Urinalysis shows no infection. Patient is a 60-year-old female with kidney stone and hypertension presents with right-sided flank pain. I see no signs of pyelonephritis. I see no signs of cystitis. I doubt kidney stone or bowel obstruction. I doubt cholecystitis , pancreatitis, or appendicitis. I believe outpatient management is appropriate. The patient need to follow-up closely with her primary doctor within 24 hours for reevaluation. She can return for any worsening symptoms. The patient will be given a prescription for [place] and Zofran. She was given a copy of her CAT scan report prior to discharge. Departure Diagnosis: Primary Impression: Flank pain Condition: Fair Patient Instructions: Flank Pain, Uncertain Cause Referrals: JÚNIOR PAZ (PCP) Additional Instructions: FOLLOW UP WITH YOUR PRIMARY CARE PHYSICIAN TOMORROW.Return to this facility if you are not improving as expected. QUIANA LUQUE MD May 17, 2016 12:11
== END 2016-05-17 11:59 | disposition home or self-care (01) ==
LOC: E/R 08:33
DX: R10.9 Unspecified abdominal pain (principal); R40.2252 Coma scale, best verbal response, oriented, at arrival to emergency department; I10 Essential (primary) hypertension; R40.2362 Coma scale, best motor response, obeys commands, at arrival to emergency department; R40.2142 Coma scale, eyes open, spontaneous, at arrival to emergency department; Z95.0 Presence of cardiac pacemaker
CPT/HCPCS: 74176; 81001; 81003; Z7502; Z7610

== ENCOUNTER 2016-07-29 21:48 | Emergency (ER) | payer OTHER ==
[~2016-07-29] VITALS: Ht 170.2 cm; Wt 134.5 kg
[~2016-07-29 21:48] MED LIST changes: +CALC0.5C4 PO; -CALCITROL; +ERGO500037 PO; +FOLI-49 PO; +GABA300C16 PO; +HYDR-902 PO; -HYDR-906 PO; -KEN1O TOP; -LEVO75TA5 PO; -NAPR-688 PO; +ONDA4TAB14 PO; +SYN112 PO; -VITAMIN D PO
[2016-07-29 21:55] VITALS: Ht 170.2 cm; Wt 134.5 kg
[2016-07-30] MEDS ORDERED: ACETAMINOPHEN 325 MG TAB PO ONE
--- NOTE | 2016-07-30 00:45 | RADRPT ---
PROCEDURE: Right shoulder. CLINICAL INDICATION: Pain. TECHNIQUE: Three views of the right shoulder. COMPARISON: None. FINDINGS: There is no fracture, dislocation or bone destruction. The joint spaces are within normal limits. Bone mineralization is within normal limits. There is no radiopaque foreign body or abnormal calcif ication. IMPRESSION: No fracture or dislocation. .Alexx Medrano MD, MD Date Time Electronically viewed and signed by .Alexx Medrano MD, on 07/30/2016 00:45 .T/
[2016-07-30] MEDS ORDERED: MED4DP PO (01:00)
[2016-07-30] MEDS ORDERED: ACET500C5 PO (01:01)
--- NOTE | 2016-07-30 02:07 | ERD ---
ER Documentation Chief Complaint Date/Time DATE: 07/30/16 TIME: 02:04 Chief Complaint R shoulder pain for 2 weeks HPI Patient is a 61-year-old female who presents to the ED with right shoulder pain 2 months. Patient has a past medical history of hypertension, A. fib, high cholesterol, hypothyroidism, chronic back pain. She denies any trauma or injury to her right shoulder. States that the pain is on the anterior aspect of the shoulder. States that occasionally the pain radiates down her arm. Denies numbness or tingling. Denies pain in her elbow or wrist. States that she has difficulty elevating and abducting her arm. Denies chest pain or cough or shortness of breath. Denies headache or dizziness, neck pain or neck stiffness. Denies abdominal pain, nausea, vomiting or diarrhea. No other complaints. ROS All systems reviewed and are negative except as per history of present illness. Medications Home Meds Active Scripts Acetaminophen* (Tylophen*) 500 Mg Capsule, 1 CAP PO Q6H Y for PAIN AND OR ELEVATED TEMP, #20 CAP Prov:CARL FENTON PA-C 07/30/16 Methylprednisolone* (Medrol* DOSE PACK) 4 Mg/Dose-Pack Tab.ds.pk, 4 MG PO . DIRECTED for 4 Days, PACKET Prov:CARL FENTON PA-C 07/30/16 Ondansetron (Ondansetron Odt) 4 Mg Tab.rapdis, 4 MG PO Q6H Y for NAUSEA AND/OR VOMITING, #30 TAB Prov:QUIANA LUQUE MD 05/17/16 Hydrocodone/Acetaminophen ([place] 10-325 Tablet) 1 Each Tablet, 1 TAB PO Q6H Y for PAIN, #7 TAB Prov:QUIANA LUQUE MD 05/17/16 Amiodarone Hcl* (Amiodarone Hcl*) 200 Mg Tablet, 200 MG PO DAILY for 30 Days, TAB Prov:YUVAL VOGT NP 10/25/14 Furosemide* (Furosemide*) 20 Mg Tablet, 20 MG PO DAILY for 30 Days, TAB Prov:YUVAL VOGT NP 10/25/14 Rivaroxaban* (Xarelto*) 15 Mg Tablet, 15 MG PO WITH DINNER for 30 Days Prov:DESTINI BRAXTON 08/23/14 Reported Medications Folic Acid* (Folic Acid*) 1 Mg Tablet, 1 MG PO DAILY, TAB 05/17/16 Gabapentin* (Gabapentin*) 300 Mg Capsule, 300 MG PO TID, #90 CAP 05/17/16 Cyclobenzaprine Hcl* (Cyclobenzaprine Hcl*) 10 Mg Tablet, 10 MG PO DAILY, #30 TAB 05/17/16 Calcitriol* (Calcitriol*) 0.5 Mcg Capsule, 0.5 MCG PO DAILY for 28 Days, #20 CAP 05/17/16 Ergocalciferol (Vitamin D2) (VITAMIN D2) 50,000 Unit Capsule, 23906 UNIT PO Q28D , CAP 05/17/16 Levothyroxine Sodium* (Levothyroxine Sodium*) 112 Mcg Tablet, 112 MCG PO BEFORE BREAKFAST, #30 TAB 05/17/16 Potassium Chloride* (K-Dur*) 10 Meq Tab.prt.sr, 10 MEQ PO DAILY, TAB 08/22/14 Atenolol* (Atenolol*) 50 Mg Tablet, 50 MG PO DAILY, TAB 08/22/14 Alprazolam* (Xanax*) 2 Mg Tablet, 2 MG PO DAILY Y for ANXIETY, TAB 08/22/14 Allopurinol* (Allopurinol*) 300 Mg Tablet, 300 MG PO DAILY, TAB 08/22/14 Omeprazole* (Omeprazole*) 20 Mg Capsule.dr, 20 MG PO DAILY, CAP 01/18/14 Allergies Allergies: Coded Allergies: aspirin (Verified Allergy, Mild, INTOLERANCE, 05/17/16) enalaprilat (Verified Allergy, Mild, COUGHING, 05/17/16) tramadol (Verified Allergy, Unknown, VOMITTING, 05/17/16) PMhx/Soc History of Surgery: No Anesthesia Reaction: No Hx Neurological Disorder: Yes (CVA 4 yrs ago) Hx Respiratory Disorders: No Hx Cardiac Disorders: Yes (Ariel with pacemaker, [place], [place] 4 yrs ago) Hx Psychiatric Problems: No Hx Miscellaneous Medical Probl: No Hx Alcohol Use: No Hx Substance Use: No Hx Tobacco Use: No Smoking Status: Never smoker FmHx Family History: No coronary disease, No diabetes, No other Physical Exam Vitals Vital Signs Date Time Temp Pulse Resp B/P Pulse Ox O2 Delivery O2 Flow Rate FiO2 07/29/16 21:55 98.3 70 20 166/91 98 Physical Exam GENERAL: Well-developed, well-nourished female. Appears in no acute distress. HEAD: Normocephalic, atraumatic. LUNG: Clear to auscultation bilaterally. No rhonchi, wheezing, rales or coarse breath sounds. HEART: Regular rate and rhythm. No murmurs, rubs or gallops. Extremities: Equal pulses bilaterally. No peripheral clubbing, cyanosis or edema. No unilateral leg swelling. No step-offs or deformities. No ecchymosis or erythema. Difficulty with elevation, internal rotation, extension. No snuffbox tenderness. Radius, ulnar and median nerve intact. NEUROLOGIC: Alert and oriented. . Normal speech. Steady gait. SKIN: Normal color. Warm and dry. No rashes or lesions. Capillary refill < 2 seconds Results 24 hrs Current Medications Medications (Trade) Dose Ordered Sig/Vidhi Route PRN Reason Start Time Stop Time Status Last Admin Dose Admin Acetaminophen (Tylenol Tab) 650 mg ONCE ONCE PO 07/30/16 00:00 07/30/16 00:01 DC 07/29/16 23:41 Procedures/MDM ER COURSE: I kept the patient and/or family informed of laboratory and diagnostic imaging results throughout the emergency room course. IMAGING STUDIES [place] [address] Radiology Main Line: [phone] DIAGNOSTIC IMAGING REPORT Patient: MARIELENA DARLING : 1955 Age: 61 Sex: F MR #: [id number] DOS: 07/29/16 2334 Ordering MD: CARL FENTON PA-C Location: [facility] Room/Bed: PROCEDURE: Right shoulder. CLINICAL INDICATION: Pain. TECHNIQUE: Three views of the right shoulder. COMPARISON: None. FINDINGS: There is no fracture, dislocation or bone destruction. The joint spaces are within normal limits. Bone mineralization is within normal limits. There is no radiopaque foreign body or abnormal calcification. IMPRESSION: No fracture or dislocation. .Alexx Medrano MD, Date Time Electronically viewed and signed by .Alexx Medrano MD, on 07/30/2016 00:45 .T/ CC: CARL FENTON PA-C MEDICATIONS Tylenol. Tolerated well with no adverse reaction. PROCEDURES ED sling. Neurovascularly intact post sling placement. MEDICAL DECISION MAKING: This is a 61-year-old female who presents with right shoulder pain 2 months. Vital signs were reviewed. Patient is afebrile. Patient is not hypoxic. Patient is not toxic or ill-appearing. Patient has right shoulder pain likely related to muscle strain versus muscle sprain versus adhesive capsulitis. X- rays of by radiologist unremarkable for fracture dislocation. Low suspicion for dislocation, fracture, septic joint, compartment syndrome, osteomyelitis, cellulitis, avascular necrosis, neurological injury, vascular injury, tendon laceration. DISCHARGE: At this time, patient is stable for discharge and outpatient management with no new complaints during the ER course. Patient was sent home with ED sling, Medrol Dosepak and to follow-up with orthopedics for further evaluation. Patient was given a CD of her x-ray.. Patient will be discharged home with instructions to recheck for new or worsening symptoms such as fever, nausea, weakness, LOC and to follow up with primary care in the next 1-2 days. Patient was advised to return to the ER for any new or worsening symptoms. Plan was discussed and patient and/or family understands and agrees. Home instructions were given. Departure Diagnosis: Primary Impression: Shoulder pain, right Chronicity: acute Qualified Code: M25.511 - Acute pain of right shoulder Condition: Stable Patient Instructions: Adhesive Capsulitis, Shoulder Pain (Uncertain Cause) Referrals: [facility] Ur[facility] Care 7 a.m.- 11 p.m. Every Day of the Week NO APPOINTMENT OR AUTHORIZATION NEEDED Additional Instructions: Call your primary care doctor TOMORROW for an appointment during the next 1-2 days.See the doctor sooner or return here if your condition worsens before your appointment time. CARL FENTON PA-C Jul 30, 2016 02:07
== END 2016-07-30 01:30 | disposition home or self-care (01) ==
LOC: FTE 21:48
DX: M25.511 Pain in right shoulder (principal); I10 Essential (primary) hypertension; E03.9 Hypothyroidism, unspecified; Z95.0 Presence of cardiac pacemaker
CPT/HCPCS: 73030; Z7502; Z7610

== ENCOUNTER 2016-09-16 12:57 | Emergency (ER) | payer OTHER ==
[~2016-09-16] VITALS: Ht 170.2 cm; Wt 72.0 kg
[~2016-09-16 12:57] MED LIST changes: +ACET500C5 PO; +MED4DP PO
[2016-09-16 13:09] VITALS: Ht 170.2 cm; Wt 72.0 kg
--- NOTE | 2016-09-16 16:53 | RADRPT ---
PROCEDURE: XR Chest. CLINICAL INDICATION: Vomiting. Upper gastrointestinal bleeding. TECHNIQUE: Single frontal view. COMPARISON: 04/03/2016. FINDINGS: The lungs are clear. The heart is enlarged. There is calcification in the aorta consistent with atherosclerosis. There is a left-sided dual lead permanent pacemaker. There is no pleural effusion. There is no pneumothorax. IMPRESSION: 1. Clear lungs. 2. Cardiomegaly and atherosclerosis. A 3 permanent pacemaker. RPTAT: QQ .Dave Cedeño MD, Date Time Electronically viewed and signed by .Dave Cedeño MD, MD on 09/16/2016 16:53 .R/
[2016-09-16 17:07] LABS: HEMATOCRIT 37.2 % (37.0-47.0); HEMOGLOBIN 11.6 g/dl (12.0-16.0); MEAN CORPUSCULAR HEMOGLOBIN 27.1 pg (29.0-33.0); MEAN CORPUSCULAR HGB CONC 31.2 g/dl (32.0-37.0); MEAN CORPUSCULAR VOLUME 86.9 fl (82.0-101.0); RED BLOOD COUNT 4.28 10^6/ul (4.20-5.40); RED CELL DISTRIBUTION WIDTH 17.1 % (11.5-14.5); WHITE BLOOD COUNT 4.1 10^3/ul (4.8-10.8)
[2016-09-16 17:08] LABS: BASOPHILS % 0.5 % (0.0-2.0); EOSINOPHILS # 0.1 10^3/ul (0.0-0.5); EOSINOPHILS % 2.9 % (0.0-7.0); LYMPHOCYTES # 1.1 10^3/ul (0.8-2.9); LYMPHOCYTES % 27.9 % (15.0-51.0); MEAN PLATELET VOLUME 9.5 fl (7.4-10.4); MONOCYTE # 0.4 10^3/ul (0.3-0.9); MONOCYTES % 9.1 % (0.0-11.0); NEUTROPHIL # 2.4 10^3/ul (1.6-7.5); NEUTROPHILS % 59.4 % (39.0-77.0); NUCLEATED RED BLOOD CELLS% 0.5 /100WBC (0.0-0.0); PLATELET COUNT 232 10^3/UL (140-415)
[2016-09-16] MEDS ORDERED: LEVO100T87 PO (17:23)
[2016-09-16] MEDS ORDERED: LOSA25TA5 PO (17:23)
[2016-09-16 17:24] LABS: INR 1.44; PARTIAL THROMBOPLASTIN TIME 38.3 Sec (25.0-35.0); PROTIME 17.6 Sec (12.2-14.2); PT RATIO 1.4
[2016-09-16] MEDS ORDERED: AMLO5TAB4 PO (17:24)
[2016-09-16] MEDS ORDERED: SIMV20TA PO (17:24)
[2016-09-16 17:27] LABS: ALANINE AMINOTRANSFERASE 35 IU/L (13-69); ALBUMIN/GLOBULIN RATIO 1.05; ALKALINE PHOSPHATASE 134 IU/L (42-121); ANION GAP 20 (8-16); ASPARTATE AMINO TRANSFERASE 22 IU/L (15-46); BILIRUBIN,INDIRECT 0.1 mg/dl (0-1.1); BILIRUBIN,TOTAL 0.1 mg/dl (0.2-1.3); BLOOD UREA NITROGEN 26 mg/dl (7-20); CALCIUM 9.4 mg/dl (8.4-10.2); CARBON DIOXIDE 28 mmol/L (21-31); CHLORIDE 101 mmol/L (97-110); CREATININE 2.61 mg/dl (0.44-1.00); GLUCOSE 102 mg/dl (70-220); POTASSIUM 4.2 mmol/L (3.5-5.1); SODIUM 145 mmol/L (135-144); TOTAL PROTEIN 7.8 g/dl (6.1-8.1)
[2016-09-16] MEDS ORDERED: AMIO200T2 PO (17:27)
[2016-09-16 17:42] LABS: TROPONIN-I < 0.012 ng/ml (0.00-0.12)
--- NOTE | 2016-09-16 17:57 | ERD ---
ER Documentation Chief Complaint Date/Time DATE: 09/16/16 TIME: 17:53 Chief Complaint VOMITING BLOOD ON XERALTO. HPI Patient is a 61-year-old female with atrial fibrillation and hypertension who presents with coughing up blood. She says that she can "twisted" inside her mouth. She said that it started yesterday after coughing. This morning it was worse. She was not vomiting blood. She denies fevers. She does admit to feeling dizzy. Upon review of old medical records the patient has multiple visits to the ER for various complaints. Her primary doctor is Dr. Júnior Paz. ROS All systems reviewed and are negative except as per history of present illness. Medications Home Meds Active Scripts Furosemide* (Furosemide*) 20 Mg Tablet, 20 MG PO DAILY for 30 Days, TAB Prov:YUVAL VOGT NP 10/25/14 Rivaroxaban* (Xarelto*) 15 Mg Tablet, 15 MG PO WITH DINNER for 30 Days Prov:DESTINI BRAXTON 08/23/14 Reported Medications Amiodarone Hcl* (Amiodarone Hcl*) 200 Mg Tablet, 100 MG PO DAILY, #30 TAB 09/16/16 Simvastatin* (Zocor*) 20 Mg Tablet, 20 MG PO QHS, #30 TAB 09/16/16 Amlodipine Besylate* (Norvasc*) 5 Mg Tablet, 5 MG PO DAILY, TAB 09/16/16 Losartan Potassium* (Losartan Potassium*) 25 Mg Tablet, 25 MG PO DAILY, TAB 09/16/16 Levothyroxine Sodium* (Levothyroxine Sodium*) 100 Mcg Tablet, 100 MCG PO BEFORE BREAKFAST, #30 TAB 09/16/16 Gabapentin* (Gabapentin*) 300 Mg Capsule, 300 MG PO TID, #90 CAP 05/17/16 Cyclobenzaprine Hcl* (Cyclobenzaprine Hcl*) 10 Mg Tablet, 10 MG PO DAILY, #30 TAB 05/17/16 Ergocalciferol (Vitamin D2) (VITAMIN D2) 50,000 Unit Capsule, 52151 UNIT PO Q28D , CAP 05/17/16 Potassium Chloride* (K-Dur*) 10 Meq Tab.prt.sr, 10 MEQ PO DAILY, TAB 08/22/14 Atenolol* (Atenolol*) 50 Mg Tablet, 50 MG PO DAILY, TAB 08/22/14 Allopurinol* (Allopurinol*) 300 Mg Tablet, 300 MG PO DAILY, TAB 08/22/14 Discontinued Reported Medications Folic Acid* (Folic Acid*) 1 Mg Tablet, 1 MG PO DAILY, TAB 05/17/16 Calcitriol* (Calcitriol*) 0.5 Mcg Capsule, 0.5 MCG PO DAILY for 28 Days, #20 CAP 05/17/16 Levothyroxine Sodium* (Levothyroxine Sodium*) 112 Mcg Tablet, 112 MCG PO BEFORE BREAKFAST, #30 TAB 05/17/16 Alprazolam* (Xanax*) 2 Mg Tablet, 2 MG PO DAILY Y for ANXIETY, TAB 08/22/14 Omeprazole* (Omeprazole*) 20 Mg Capsule.dr, 20 MG PO DAILY, CAP 01/18/14 Discontinued Scripts Acetaminophen* (Tylophen*) 500 Mg Capsule, 1 CAP PO Q6H Y for PAIN AND OR ELEVATED TEMP, #20 CAP Prov:CARL FENTON PA-C 07/30/16 Methylprednisolone* (Medrol* DOSE PACK) 4 Mg/Dose-Pack Tab.ds.pk, 4 MG PO . DIRECTED for 4 Days, PACKET Prov:CARL FENTON PA-C 07/30/16 Ondansetron (Ondansetron Odt) 4 Mg Tab.rapdis, 4 MG PO Q6H Y for NAUSEA AND/OR VOMITING, #30 TAB Prov:QUIANA LUQUE MD 05/17/16 Hydrocodone/Acetaminophen ([place] 10-325 Tablet) 1 Each Tablet, 1 TAB PO Q6H Y for PAIN, #7 TAB Prov:QUIANA LUQUE MD 05/17/16 Amiodarone Hcl* (Amiodarone Hcl*) 200 Mg Tablet, 200 MG PO DAILY for 30 Days, TAB Prov:YUVAL VOGT NP 10/25/14 Allergies Allergies: Coded Allergies: aspirin (Verified Allergy, Mild, INTOLERANCE, 09/16/16) enalaprilat (Verified Allergy, Mild, COUGHING, 09/16/16) tramadol (Verified Allergy, Unknown, VOMITTING, 09/16/16) PMhx/Soc History of Surgery: No Anesthesia Reaction: No Hx Neurological Disorder: Yes (CVA 4 yrs ago) Hx Respiratory Disorders: No Hx Cardiac Disorders: Yes (Ariel with pacemaker, Afib, [place] 4 yrs ago) Hx Psychiatric Problems: No Hx Miscellaneous Medical Probl: No Hx Alcohol Use: No Hx Substance Use: No Hx Tobacco Use: No Smoking Status: Never smoker FmHx Family History: diabetes Physical Exam Vitals Vital Signs Date Time Temp Pulse Resp B/P Pulse Ox O2 Delivery O2 Flow Rate FiO2 09/16/16 13:09 97.9 70 19 140/88 99 Physical Exam Const: No acute distress, smiling and happy Head: Atraumatic Eyes: Normal Conjunctiva ENT: Normal External Ears, Nose and Mouth. Neck: Full range of motion..~ No meningismus. Resp: Clear to auscultation bilaterally Cardio: Regular rate and rhythm, no murmurs Abd: Soft, non tender, non distended. Normal bowel sounds Skin: No petechiae or rashes Back: No midline or flank tenderness Ext: No cyanosis, or edema Neur: Awake and alert Psych: Normal Mood and Affect Result Diagram: 09/16/16 1700 09/16/16 1700 Results 24 hrs Laboratory Tests Test 09/16/16 17:00 White Blood Count 4.110^3/ul Red Blood Count 4.2810^6/ul Hemoglobin 11.6g/dl Hematocrit 37.2% Mean Corpuscular Volume 86.9fl Mean Corpuscular Hemoglobin 27.1pg Mean Corpuscular Hemoglobin Concent 31.2g/dl Red Cell Distribution Width 17.1% Platelet Count 50682^3/UL Mean Platelet Volume 9.5fl Neutrophils % 59.4% Lymphocytes % 27.9% Monocytes % 9.1% Eosinophils % 2.9% Basophils % 0.5% Nucleated Red Blood Cells % 0.5/100WBC Neutrophils # 2.410^3/ul Lymphocytes # 1.110^3/ul Monocytes # 0.410^3/ul Eosinophils # 0.110^3/ul Basophils # 0.010^3/ul Nucleated Red Blood Cells # 0.010^3/ul Prothrombin Time 17.6Sec Prothrombin Time Ratio 1.4 INR International Normalized Ratio 1.44 Activated Partial Thromboplast Time 38.3Sec Sodium Level 145mmol/L Potassium Level 4.2mmol/L Chloride Level 101mmol/L Carbon Dioxide Level 28mmol/L Anion Gap 20 Blood Urea Nitrogen 26mg/dl Creatinine 2.61mg/dl Glucose Level 102mg/dl Calcium Level 9.4mg/dl Total Bilirubin 0.1mg/dl Direct Bilirubin 0.00mg/dl Indirect Bilirubin 0.1mg/dl Aspartate Amino Transf (AST/SGOT) 22IU/L Alanine Aminotransferase (ALT/SGPT) 35IU/L Alkaline Phosphatase 134IU/L Troponin I < 0.012ng/ml Total Protein 7.8g/dl Albumin 4.0g/dl Globulin 3.80g/dl Albumin/Globulin Ratio 1.05 Procedures/MDM EKG read by me: Rate/Rhythm: Paced rhythm at a rate of 71 Intervals: Normal Impression: Paced rhythm with left bundle branch block without Sgarbossa criteria Chest x-ray negative for pneumonia or pneumothorax per radiology. Patient is a 61-year-old female with hypertension and atrial fibrillation who presents with coughing up blood. Laboratory studies show a mild anemia with a hemoglobin of 11.6 but the patient does not require transfusion at this time. The patient is well-appearing in the emergency department. There is no active bleeding. The patient will be discharged and can return for any worsening symptoms. She should follow-up with her primary doctor within 24-48 hours. Departure Diagnosis: Primary Impression: Hemoptysis Additional Impressions: Anemia Anemia type: unspecified type Qualified Code: D64.9 - Anemia, unspecified type Chronic kidney disease Chronic kidney disease stage: unspecified stage Qualified Code: N18.9 - Chronic kidney disease, unspecified stage Condition: Fair Patient Instructions: Hemoptysis Referrals: JÚNIOR PAZ (PCP) Additional Instructions: Call your primary care doctor TOMORROW for an appointment during the next 1-2 days.See the doctor sooner or return here if your condition worsens before your appointment time. QUIANA LUQUE MD Sep 16, 2016 17:57
[2016-09-16 18:09] VITALS: BP 139/87; PULSE 73; RESP 20; TEMP 98
== END 2016-09-16 18:10 | disposition home or self-care (01) ==
LOC: E/R 12:57
DX: R04.2 Hemoptysis (principal); D64.9 Anemia, unspecified; I12.9 Hypertensive chronic kidney disease with stage 1 through stage 4 chronic kidney disease, or unspecified chronic kidney disease; N18.9 Chronic kidney disease, unspecified; Z79.01 Long term (current) use of anticoagulants; Z95.0 Presence of cardiac pacemaker
CPT/HCPCS: 36415; 71010; 80053; 84484; 85025; 85610; 85730; 86850; 86900; 86901; 93005; Z7502

== ENCOUNTER 2016-10-14 14:35 | Emergency (ER) | payer OTHER ==
[~2016-10-14] VITALS: Ht 167.6 cm; Wt 100.0 kg
[~2016-10-14 14:35] MED LIST changes: -ACET500C5 PO; -ALPR2TAB PO; +AMLO5TAB4 PO; -CALC0.5C4 PO; -FOLI-49 PO; -HYDR-902 PO; +LEVO100T87 PO; +LOSA25TA5 PO; -MED4DP PO; -OMEP20CA16 PO; -ONDA4TAB14 PO; +SIMV20TA PO; -SYN112 PO
[2016-10-14 14:42] VITALS: Ht 167.6 cm; Wt 100.0 kg
--- NOTE | 2016-10-14 16:45 | ERD ---
ER Documentation Chief Complaint Date/Time DATE: 10/14/16 TIME: 16:44 Chief Complaint Complains of left leg pain since yesterday HPI 61-year-old female presents with left-sided posterior leg pain that radiates to her left knee that occurred yesterday after a twisting motion. Patient reports she was internally rotating her leg, and since then she has had sharp pain, worse with extension better with flexion. She denies any fevers or chills. She denies any other injuries. ROS All systems reviewed and are negative except as per history of present illness. Medications Home Meds Active Scripts Ibuprofen* (Motrin*) 600 Mg Tab, 600 MG PO Q6, #30 TAB Prov:SHAUNA YOUNG PA-C 10/14/16 Furosemide* (Furosemide*) 20 Mg Tablet, 20 MG PO DAILY for 30 Days, TAB Prov:YUVAL VOGT NP 10/25/14 Rivaroxaban* (Xarelto*) 15 Mg Tablet, 15 MG PO WITH DINNER for 30 Days Prov:DESTINI BRAXTON 08/23/14 Reported Medications Amiodarone Hcl* (Amiodarone Hcl*) 200 Mg Tablet, 100 MG PO DAILY, #30 TAB 09/16/16 Simvastatin* (Zocor*) 20 Mg Tablet, 20 MG PO QHS, #30 TAB 09/16/16 Amlodipine Besylate* (Norvasc*) 5 Mg Tablet, 5 MG PO DAILY, TAB 09/16/16 Losartan Potassium* (Losartan Potassium*) 25 Mg Tablet, 25 MG PO DAILY, TAB 09/16/16 Levothyroxine Sodium* (Levothyroxine Sodium*) 100 Mcg Tablet, 100 MCG PO BEFORE BREAKFAST, #30 TAB 09/16/16 Gabapentin* (Gabapentin*) 300 Mg Capsule, 300 MG PO TID, #90 CAP 05/17/16 Cyclobenzaprine Hcl* (Cyclobenzaprine Hcl*) 10 Mg Tablet, 10 MG PO DAILY, #30 TAB 05/17/16 Ergocalciferol (Vitamin D2) (VITAMIN D2) 50,000 Unit Capsule, 94881 UNIT PO Q28D , CAP 05/17/16 Potassium Chloride* (K-Dur*) 10 Meq Tab.prt.sr, 10 MEQ PO DAILY, TAB 08/22/14 Atenolol* (Atenolol*) 50 Mg Tablet, 50 MG PO DAILY, TAB 08/22/14 Allopurinol* (Allopurinol*) 300 Mg Tablet, 300 MG PO DAILY, TAB 08/22/14 Allergies Allergies: Coded Allergies: aspirin (Verified Allergy, Mild, INTOLERANCE, 09/16/16) enalaprilat (Verified Allergy, Mild, COUGHING, 09/16/16) tramadol (Verified Allergy, Unknown, VOMITTING, 09/16/16) PMhx/Soc History of Surgery: No Anesthesia Reaction: No Hx Neurological Disorder: Yes (CVA 4 yrs ago) Hx Respiratory Disorders: No Hx Cardiac Disorders: Yes (Ariel with pacemaker, Afib, [place] 4 yrs ago) Hx Psychiatric Problems: No Hx Miscellaneous Medical Probl: No Hx Alcohol Use: No Hx Substance Use: No Hx Tobacco Use: No Smoking Status: Never smoker Physical Exam Vitals Vital Signs Date Time Temp Pulse Resp B/P Pulse Ox O2 Delivery O2 Flow Rate FiO2 10/14/16 14:42 98.4 70 20 145/81 96 Physical Exam General: Well-developed, well-nourished. The patient appears in no acute distress. HEENT: Head is normocephalic, atraumatic. No scleral icterus. Neck: Supple. Nontender. Lungs: Clear to auscultation. Normal air movement. Heart: Regular rate and rhythm. S1 and S2 are normal. No murmurs, gallops, or rubs. Abdomen: Nondistended. Extremities: Left knee has full range of motion with extension covered with pain , she is able to flex. There is no joint line tenderness, no pain with valgus or varus stress test. Negative Homans sign. Neurologic: Alert and oriented 3. No focal deficits. Normal speech and gait. Skin: Normal turgor. No rash or lesions. Results 24 hrs Current Medications Medications (Trade) Dose Ordered Sig/Vidhi Route PRN Reason Start Time Stop Time Status Last Admin Dose Admin Acetaminophen/ Hydrocodone Bitart ([place] (5/325)) 1 tab ONCE ONCE PO 10/14/16 17:00 10/14/16 17:01 DC 10/14/16 16:39 PROCEDURE: XR Knee. CLINICAL INDICATION: Left knee pain. TECHNIQUE: AP, lateral, and oblique views of the left knee are available for review. COMPARISON: None available FINDINGS: there is mild osteoarthritis with narrowing and small osteophytes at the lateral and patellofemoral compartments. . No acute fracture or dislocation is seen. No radiopaque foreign body is identified. Alignment is anatomic. There is a large suprapatellar joint effusion present. IMPRESSION: 1. Mild osteoarthritis. 2. No acute fracture or dislocation is seen. 3. Large suprapatellar joint effusion. RPTAT: GG Signed By: Paulie Griggs M.d 10/14/2016 5:28:04 PM Procedures/MDM ED course: Patient was given [place] for pain. Attempted to apply a knee immobilizer to the left knee, however due to patient' s body habitus knee immobilizer did not fit. [place] bandage 2 were used to wrap the left knee for immobilization. Splint Assessment: Neurovascularly intact post splint placement with good fit. Medical decision makin-year-old female presents with atraumatic rotation injury on the left posterior leg behind the knee going to the anterior knee. X- ray shows suprapatellar joint effusion, consistent with a sprain.Patient's pain is worse with extension, however she does not have any signs of joint laxity, no evidence of fracture, I doubt septic arthritis, DVT. There are no signs of any limb threatening process. Departure Diagnosis: Primary Impression: Left knee sprain Condition: Good SHAUNA YOUNG PA-C Oct 14, 2016 16:45
[2016-10-14] MEDS ORDERED: HYDROCODONE/APAP (5/325) TAB PO ONE (17:00)
[2016-10-14] MEDS ORDERED: IBUP-1542 PO (17:17)
--- NOTE | 2016-10-14 17:28 | RADRPT ---
PROCEDURE: XR Knee. CLINICAL INDICATION: Left knee pain. TECHNIQUE: AP, lateral, and oblique views of the left knee are available for review. COMPARISON: None available FINDINGS: there is mild osteoarthritis with narrowing and small osteophytes at the lateral and patellofemoral compartments. . No acute fracture or dislocation is seen. No radiopaque foreign body is identifie d. Alignment is anatomic. There is a large suprapatellar joint effusion present. IMPRESSION: 1. Mild osteoarthritis. 2. No acute fracture or dislocation is seen. 3. Large suprapatellar joint effusion. RPTAT: GG .Paulie Griggs MD, MD Date Time Electronically viewed and signed by .Paulie Griggs MD, MD on 10/14/2016 17:28 .L/
== END 2016-10-14 17:52 | disposition home or self-care (01) ==
LOC: FTE 14:35
DX: S83.92XA Sprain of unspecified site of left knee, initial encounter (principal); X50.9XXA Other and unspecified overexertion or strenuous movements or postures, initial encounter; Y92.9 Unspecified place or not applicable
CPT/HCPCS: 73562; Z7502; Z7610

== ENCOUNTER 2017-01-11 09:31 | Emergency (ER) | payer OTHER ==
[~2017-01-11] VITALS: Ht 160 cm; Wt 137.3 kg
[~2017-01-11 09:31] MED LIST changes: +IBUP-1542 PO
[2017-01-11 09:34] VITALS: Ht 160 cm; Wt 137.3 kg
[2017-01-11] MEDS ORDERED: ALBUTEROL 0.083% (NEB) 2.5 MG/3 ML AMP NEB STA (10:34)
--- NOTE | 2017-01-11 11:28 | RADRPT ---
PROCEDURE: XR Chest. CLINICAL INDICATION: Dyspnea. TECHNIQUE: XR CHEST AP PORTABLE COMPARISON: 09/16/2016 FINDINGS: The lungs are clear. The heart is enlarged. There is calcification in the aorta consistent with ath erosclerosis. There is a left-sided dual lead permanent pacemaker. There is no pleural effusion. T here is no pneumothorax. IMPRESSION: 1. Clear lungs. 2. Cardiomegaly and atherosclerosis. RPTAT: JJ .Raz Coronado MD, MD Date Time Electronically viewed and signed by .Raz Coronado MD, MD on 01/11/2017 11:27 .A/
[2017-01-11] MEDS ORDERED: BENZ100C70 PO (11:47)
[2017-01-11] MEDS ORDERED: AZIT250T94 PO (11:47)
--- NOTE | 2017-01-11 11:52 | ERD ---
ER Documentation Chief Complaint Chief Complaint COUGH X 2 WEEKS HPI This 61-year-old female with history of A. fib, pacemaker, asthma presenting to the emergency department stating that she has cough for the past 2 weeks. She denies any chest pain or shortness of breath. She states that she felt as if she feels tight, last dose of albuterol was taken last night. She denies any fevers ROS All systems reviewed and are negative except as per history of present illness. Medications Home Meds Active Scripts Benzonatate* (Tessalon Perle*) 100 Mg Capsule, 100 MG PO Q8H Y for COUGH, #20 CAP Prov:DEAN AGUILAR PA-C 01/11/17 Azithromycin* (Zithromax*) 250 Mg Tablet, 250 MG PO .CHANTE DIRECTED, #6 TAB TAKE 500 MG (2 TABS) THE FIRST DAY THEN 250 MG (1 TAB) DAYS 2-5 Prov:DEAN AGUILAR PA-C 01/11/17 Ibuprofen* (Motrin*) 600 Mg Tab, 600 MG PO Q6, #30 TAB Prov:SHAUNA YOUNG PA-C 10/14/16 Furosemide* (Furosemide*) 20 Mg Tablet, 20 MG PO DAILY for 30 Days, TAB Prov:YUVAL VOGT NP 10/25/14 Rivaroxaban* (Xarelto*) 15 Mg Tablet, 15 MG PO WITH DINNER for 30 Days Prov:DESTINI BRAXTON 08/23/14 Reported Medications Amiodarone Hcl* (Amiodarone Hcl*) 200 Mg Tablet, 100 MG PO DAILY, #30 TAB 09/16/16 Simvastatin* (Zocor*) 20 Mg Tablet, 20 MG PO QHS, #30 TAB 09/16/16 Amlodipine Besylate* (Norvasc*) 5 Mg Tablet, 5 MG PO DAILY, TAB 09/16/16 Losartan Potassium* (Losartan Potassium*) 25 Mg Tablet, 25 MG PO DAILY, TAB 09/16/16 Levothyroxine Sodium* (Levothyroxine Sodium*) 100 Mcg Tablet, 100 MCG PO BEFORE BREAKFAST, #30 TAB 09/16/16 Gabapentin* (Gabapentin*) 300 Mg Capsule, 300 MG PO TID, #90 CAP 05/17/16 Cyclobenzaprine Hcl* (Cyclobenzaprine Hcl*) 10 Mg Tablet, 10 MG PO DAILY, #30 TAB 05/17/16 Ergocalciferol (Vitamin D2) (VITAMIN D2) 50,000 Unit Capsule, 59501 UNIT PO Q28D , CAP 05/17/16 Potassium Chloride* (K-Dur*) 10 Meq Tab.prt.sr, 10 MEQ PO DAILY, TAB 08/22/14 Atenolol* (Atenolol*) 50 Mg Tablet, 50 MG PO DAILY, TAB 08/22/14 Allopurinol* (Allopurinol*) 300 Mg Tablet, 300 MG PO DAILY, TAB 08/22/14 Allergies Allergies: Coded Allergies: aspirin (Verified Allergy, Mild, INTOLERANCE, 01/11/17) enalaprilat (Verified Allergy, Mild, COUGHING, 01/11/17) tramadol (Verified Allergy, Unknown, VOMITTING, 01/11/17) PMhx/Soc History of Surgery: No Anesthesia Reaction: No Hx Neurological Disorder: Yes (CVA 4 yrs ago) Hx Respiratory Disorders: No Hx Cardiac Disorders: Yes (Ariel with pacemaker, Afib, [place] 4 yrs ago) Hx Psychiatric Problems: No Hx Miscellaneous Medical Probl: No Hx Alcohol Use: No Hx Substance Use: No Hx Tobacco Use: No Smoking Status: Never smoker Physical Exam Vitals Vital Signs Date Time Temp Pulse Resp B/P Pulse Ox O2 Delivery O2 Flow Rate FiO2 01/11/17 10:58 78 18 96 21 01/11/17 09:34 98.2 70 18 180/85 95 Physical Exam Const: [] Head: Atraumatic Eyes: Normal Conjunctiva ENT: Normal External Ears, Nose and Mouth. Neck: Full range of motion..~ No meningismus. Resp: Clear to auscultation bilaterally Cardio: Regular rate and rhythm, no murmurs Abd: Soft, non tender, non distended. Normal bowel sounds Skin: No petechiae or rashes Back: No midline or flank tenderness Ext: No cyanosis, or edema Neur: Awake and alert Psych: Normal Mood and Affect Results 24 hrs Current Medications Medications (Trade) Dose Ordered Sig/Vidhi Route PRN Reason Start Time Stop Time Status Last Admin Dose Admin Albuterol (Proventil 0.083% ([place])) 5 mg ONCE STAT NEB 01/11/17 10:34 01/11/17 10:35 DC 01/11/17 10:57 Procedures/MDM Well-appearing 61-year-old female have A. fib, pacemaker presents to the emergency department complaining of cough for the past 2 weeks which is likely due to viral upper respiratory infection. There was no evidence of CHF, pneumonia, pleural effusion. Chest x-ray showed patient had cardiomegaly with atherosclerosis without any evidence of infiltrates. EKG showed a paced rhythm. RT was consulted, patient was given albuterol breathing treatment and reassess she states that she feels better. Patient stable to be discharged home to follow-up with primary care physician. Discussed return to the ER for any worsening signs this patient understands and agrees with plan Consulted plan with supervising physician EKG: read and signed off by myself and Rate/Rhythm: AV sequential or dual chamber electronic pacemaker QRS, ST, T-waves: [No changes consistent w/ acute ischemia] Impression: [No evidence of ischemia or arrhythmia] Departure Diagnosis: Primary Impression: URI (upper respiratory infection) Condition: Stable Patient Instructions: Uri, Viral, No Abx (Adult) Additional Instructions: FOLLOW UP WITH YOUR PRIMARY CARE PHYSICIAN TOMORROW.Return to this facility if you are not improving as expected. Take all medicines as directed. Return to this facility if you are not improving as expected. DEAN AGUILAR PA-C Jan 11, 2017 11:52
[2017-01-11 12:24] VITALS: BP 154/68
== END 2017-01-11 12:25 | disposition home or self-care (01) ==
LOC: FTE 09:31
DX: J06.9 Acute upper respiratory infection, unspecified (principal); Z95.0 Presence of cardiac pacemaker
CPT/HCPCS: 71010; 93005; 94664; Z7502; Z7610

== ENCOUNTER 2017-01-16 08:09 | Emergency (ER) | payer OTHER ==
[~2017-01-16] VITALS: Wt 138.3 kg
[~2017-01-16 08:09] MED LIST changes: +AZIT250T94 PO; +BENZ100C70 PO
--- NOTE | 2017-01-16 08:34 | ERD ---
ER Documentation Chief Complaint Chief Complaint COUGH, CONGESTION, CHEST HURTS WITH COUGHING, DX WITH URI LAST WEEK HPI 61-year-old female, returns to the emergency department complaining of persistent dry cough for 1 week. The patient was seen here before and was started on antibiotics with mild improvement of the symptoms. Currently she is complaining of a sore throat, congestion. Denies fevers, chills, shortness of breath, no gastrointestinal symptoms no chest pain. ROS SYSTEMIC symptoms: no fever, chills, no night sweats, no weight loss EYE symptoms: No blurred vision, no eye discharge OTOLARYNGEAL symptoms: No hearing loss. No ear pain, no sore throat CARDIOVASCULAR symptoms: No chest pain or discomfort, no palpitations. PULMONARY symptoms: No dyspnea, dry cough cough, no wheezing. GASTROINTESTINAL symptoms: No abdominal pain, no nausea, no vomiting, no diarrhea MUSCULOSKELETAL symptoms: No arthralgias, no muscle aches. NEUROLOGY symptoms: No confusion, no syncope, no numbness or tingling. SKIN: No rashes Medications Home Meds Active Scripts Promethazine HCl/Codeine (Prometh-Codein 6.25-10 mg/5 ml) 5 Ml Syrup, 5 ML PO QHS for COUGH for 5 Days, #120 ML Prov:JOYCE ESPINOZA MD 01/16/17 Albuterol Sulfate* (Proair HFA*) 8.5 Gm Hfa.aer.ad, 2 PUFF INH Q6H Y for WHEEZING AND SOB, #1 INHALER Prov:JOYCE ESPINOZA MD 01/16/17 Prednisone (Prednisone) 20 Mg Tablet, 40 MG PO QAM for 5 Days, TAB Prov:JOYCE ESPINOZA MD 01/16/17 Benzonatate* (Tessalon Perle*) 100 Mg Capsule, 100 MG PO Q8H Y for COUGH, #20 CAP Prov:DEAN AGUILAR PA-C 01/11/17 Azithromycin* (Zithromax*) 250 Mg Tablet, 250 MG PO .ZPACK DIRECTED, #6 TAB TAKE 500 MG (2 TABS) THE FIRST DAY THEN 250 MG (1 TAB) DAYS 2-5 Prov:DEAN AGUILAR PA-C 01/11/17 Ibuprofen* (Motrin*) 600 Mg Tab, 600 MG PO Q6, #30 TAB Prov:SHAUNA YOUNG PA-C 10/14/16 Furosemide* (Furosemide*) 20 Mg Tablet, 20 MG PO DAILY for 30 Days, TAB Prov:YUVAL VOGT NP 10/25/14 Rivaroxaban* (Xarelto*) 15 Mg Tablet, 15 MG PO WITH DINNER for 30 Days Prov:DESTINI BRAXTON 08/23/14 Reported Medications Amiodarone Hcl* (Amiodarone Hcl*) 200 Mg Tablet, 100 MG PO DAILY, #30 TAB 09/16/16 Simvastatin* (Zocor*) 20 Mg Tablet, 20 MG PO QHS, #30 TAB 09/16/16 Amlodipine Besylate* (Norvasc*) 5 Mg Tablet, 5 MG PO DAILY, TAB 09/16/16 Losartan Potassium* (Losartan Potassium*) 25 Mg Tablet, 25 MG PO DAILY, TAB 09/16/16 Levothyroxine Sodium* (Levothyroxine Sodium*) 100 Mcg Tablet, 100 MCG PO BEFORE BREAKFAST, #30 TAB 09/16/16 Gabapentin* (Gabapentin*) 300 Mg Capsule, 300 MG PO TID, #90 CAP 05/17/16 Cyclobenzaprine Hcl* (Cyclobenzaprine Hcl*) 10 Mg Tablet, 10 MG PO DAILY, #30 TAB 05/17/16 Ergocalciferol (Vitamin D2) (VITAMIN D2) 50,000 Unit Capsule, 11835 UNIT PO Q28D , CAP 05/17/16 Potassium Chloride* (K-Dur*) 10 Meq Tab.prt.sr, 10 MEQ PO DAILY, TAB 08/22/14 Atenolol* (Atenolol*) 50 Mg Tablet, 50 MG PO DAILY, TAB 08/22/14 Allopurinol* (Allopurinol*) 300 Mg Tablet, 300 MG PO DAILY, TAB 08/22/14 Allergies Allergies: Coded Allergies: aspirin (Verified Allergy, Mild, INTOLERANCE, 01/11/17) enalaprilat (Verified Allergy, Mild, COUGHING, 01/11/17) tramadol (Verified Allergy, Unknown, VOMITTING, 01/11/17) PMhx/Soc History of Surgery: No Anesthesia Reaction: No Hx Neurological Disorder: Yes (CVA 4 yrs ago) Hx Respiratory Disorders: No Hx Cardiac Disorders: Yes (Ariel with pacemaker, Afib, [place] 4 yrs ago) Hx Psychiatric Problems: No Hx Miscellaneous Medical Probl: No Hx Alcohol Use: No Hx Substance Use: No Hx Tobacco Use: No Physical Exam Vitals Vital Signs Date Time Temp Pulse Resp B/P Pulse Ox O2 Delivery O2 Flow Rate FiO2 01/16/17 08:17 97.8 78 18 170/89 97 Physical Exam Patient is in no acute distress, vital signs stable. Alert and fully oriented. EYES: PERRLA, EOMI, Sclera and conjunctiva appear normal. EARS: Canals clear, tympanic membranes WNL THROAT: Normal oropharynx. NECK: Supple, No lymphadenopathy. Full ROM without pain or tenderness. HEART: RRR, no rubs, murmurs, clicks or gallops. LUNGS: Bilateral rhonchi, with symmetrical diffuse expiratory wheezing ABDOMEN: Soft, non-tender without masses or hepatosplenomegaly. EXTREMITIES: No edema bilaterally. BACK: Full ROM, no deformity, normal back exam NEURO: Cranial nerves grossly intact, no motor or sensory deficit Results 24 hrs [place] [address] Radiology Main Line: [phone] DIAGNOSTIC IMAGING REPORT Patient: MARIELENA DARLING : 1955 Age: 61 Sex: F [id number] DOS: 01/16/17 0847 Ordering MD: JOYCE ESPINOZA MD Location: FTE Room/Bed: PROCEDURE: XR Chest. CLINICAL INDICATION: Worsening cough. TECHNIQUE: PA and lateral chest x-ray. COMPARISON: 01/11/2017 FINDINGS: The lungs are clear. The heart is enlarged. There is calcification in the aorta consistent with atherosclerosis. There is a left-sided dual lead permanent pacemaker. There is no pleural effusion. There is no pneumothorax. IMPRESSION: 1. Clear lungs. 2. Cardiomegaly and atherosclerosis. RPTAT: JJ .Raz Coronado MD, Date Time Electronically viewed and signed by .Raz Coronado MD, on 01/16/2017 09:31 .A/ CC: JOYCE ESPINOZA MD Procedures/MDM 61-year-old female, returns to the emergency department after 1 week of being seen for upper respiratory symptoms. The patient comes for evaluation and management of persistent dry cough. Vital signs stable, physical examination unremarkable except for mild bilateral rhonchi with expiratory wheezing. Differential diagnosis include but not limited to: Respiratory infection bacterial/viral/fungal. Asthma/COPD, pneumonitis, allergies, GERD. Less likely foreign body aspiration, cardiac related, aspiration pneumonia, malignancy. Radiology: CXR 1. Clear lungs. 2. Cardiomegaly and atherosclerosis. Physical examination and clinical presentation consistent most likely with noninfectious bronchitis with wheezing, therefore antibiotics not indicated at this time. During the ED course the patient remained stable, no new complaints. Results and clinical impression discussed with patient who agrees with management. The patient is stable to be treated outpatient and will be discharged home with a Rx for prednisone, pro-air and promethazine with codeine as needed at night. some side effects of prescribed medications (headache, rash , nausea, vomiting, diarrhea, drowsiness, habituation, bleeding, hypertension, interactions with other medications) were reviewed. The patient was instructed to follow up with the primary care provider in the next 48h. If symptoms persist, worsen or new symptoms develop, then patient should return to the ED immediately. Instructions explained and given directly by me to the patient in Hebrew with acknowledgment and demonstrated understanding. Disclaimer: Inadvertent spelling and grammatical errors are likely due to EHR/ dictation software use and do not reflect on the overall quality of patient care. Also, please note that the electronic time recorded on this note does not necessarily reflect the actual time of the patient encounter. Departure Diagnosis: Primary Impression: Wheezy bronchitis Condition: Stable Additional Instructions: Call your primary care doctor TOMORROW for an appointment during the next 1-2 days. See the doctor sooner or return here if your condition worsens before your appointment time. Thank you very much for allowing us to participate in your care. Your health and safety is our top priority at [facility]. Have prescriptions filled and follow precisely the directions on the label. Follow-up with primary care provider during the next 4 days and bring all the information and medications prescribed. If illness has not improved in 2 days, then make an appointment with primary care provider. If the provider is unavailable, return to the Emergency Department immediately. JOYCE ESPINOZA MD Jan 16, 2017 08:34
--- NOTE | 2017-01-16 09:31 | RADRPT ---
PROCEDURE: XR Chest. CLINICAL INDICATION: Worsening cough. TECHNIQUE: PA and lateral chest x-ray. COMPARISON: 01/11/2017 FINDINGS: The lungs are clear. The heart is enlarged. There is calcification in the aorta consistent with athe rosclerosis. There is a left-sided dual lead permanent pacemaker. There is no pleural effusion. Ther e is no pneumothorax. IMPRESSION: 1. Clear lungs. 2. Cardiomegaly and atherosclerosis. RPTAT: JJ .Raz Coronado MD, Date Time Electronically viewed and signed by .Raz Coronado MD, on 01/16/2017 09:31 .A/
[2017-01-16] MEDS ORDERED: PROM5SYR2 PO (10:06)
[2017-01-16] MEDS ORDERED: ALBU8.5H3 INH (10:06)
[2017-01-16] MEDS ORDERED: PRED20TA PO (10:06)
== END 2017-01-16 10:13 | disposition home or self-care (01) ==
LOC: FTE 08:09
DX: J40 Bronchitis, not specified as acute or chronic (principal); Z79.01 Long term (current) use of anticoagulants
CPT/HCPCS: 71020; Z7502

== ENCOUNTER 2017-03-15 18:05 | Inpatient (IN) | END 2017-03-22 12:25 | disposition home or self-care (01) | DRG 193 ==

== ENCOUNTER 2017-05-08 10:48 | Emergency (ER) | END 2017-05-08 15:23 | disposition home or self-care (01) ==

== ENCOUNTER 2018-01-22 16:41 | Emergency (ER) | END 2018-01-22 20:20 | disposition home or self-care (01) ==

== ENCOUNTER 2018-04-06 11:53 | Inpatient (IN) | payer OTHER ==
[~2018-04-06] VITALS: Ht 170.2 cm; Wt 128.0 kg
[~2018-04-06 11:53] MED LIST changes: +ALBU8.5H8 INH; +ALPR2TAB PO; -AMIO200T2 PO; +AMIO200T4 PO; -AMLO5TAB4 PO; -AZIT250T94 PO; -BENZ100C70 PO; -CYCL-319 PO; +CYCL10TA7 PO; +ERGO500013 PO; -ERGO500037 PO; +FER325 PO; -IBUP-1542 PO; +LEVO100T8 PO; -LEVO100T87 PO; -LOSA25TA5 PO; +OMEP20CA16 PO; -POTA10TA37 PO; +POTA10TA7 PO; -RIVA15TA PO
[2018-04-06] MEDS ORDERED: ATEN50TA PO (15:25)
--- NOTE | 2018-04-06 16:57 | ERD ---
ER Documentation Chief Complaint Chief Complaint PALPITATIONS SINCE LAST NIGHT, EPIGASTRIC PAIN/WEAKNESS SINCE MONDAY HPI This is a very pleasant 62 year old female with a hx of SSS s/p PM who presents with palpitations and weakness. She also has epigastric pain which is intermittent and ongoing x 4 days. She has hx of H. Pylori. Denies hematemesis or lower GI bleeding. She has no fever, she has been compliant with her medications. ROS All systems reviewed and are negative except as per history of present illness. Medications Home Meds Active Scripts Omeprazole* (Omeprazole*) 20 Mg Capsule.dr, 20 MG PO BID, #60 CAP 2 Refills Prov:MELANIE YOUNG 07/18/17 Ferrous Sulfate* (Ferrous Sulfate*) 325 Mg Tabec, 325 MG PO BID, #60 TAB 2 Refills Prov:MELANIE YOUNG 07/18/17 Albuterol Sulfate* (Proair HFA*) 8.5 Gm Hfa.aer.ad, 2 PUFF INH Q4, #1 INHALER Prov:CHIP JIMENEZ MD 05/08/17 Reported Medications Atenolol* (Atenolol*) 50 Mg Tablet, 50 MG PO DAILY, #30 TAB 04/06/18 Alprazolam* (Xanax*) 2 Mg Tablet, 2 MG PO DAILY PRN for ANXIETY, TAB 03/15/17 Gabapentin* (Gabapentin*) 300 Mg Capsule, 300 MG PO TID, #90 CAP 03/15/17 Simvastatin* (Zocor*) 20 Mg Tablet, 20 MG PO QHS, #30 TAB 03/15/17 Furosemide* (Furosemide*) 20 Mg Tablet, 20 MG PO DAILY, #60 TAB 03/15/17 Levothyroxine Sodium* (Levothyroxine Sodium*) 100 Mcg Tablet, 100 MCG PO BEFORE BREAKFAST, #30 TAB 03/15/17 Cyclobenzaprine Hcl* (Cyclobenzaprine Hcl*) 10 Mg Tablet, 10 MG PO QHS, #60 TAB 03/15/17 Allopurinol* (Allopurinol*) 300 Mg Tablet, 300 MG PO DAILY, TAB 03/15/17 Ergocalciferol (Vitamin D2) (VITAMIN D2) 50,000 Unit Capsule, 38550 UNIT PO Q7D, CAP 03/15/17 Potassium Chloride (Klor-Con) 10 Meq Tablet.sa, 10 MEQ PO DAILY, TAB.SA 03/15/17 Amiodarone Hcl* (Amiodarone Hcl*) 200 Mg Tablet, 200 MG PO DAILY, #30 TAB 03/15/17 Discontinued Scripts Cyclobenzaprine Hcl* (Cyclobenzaprine Hcl*) 10 Mg Tablet, 10 MG PO TID, #15 TAB Prov:CHIP JIMENEZ MD 01/22/18 Atenolol* (Atenolol*) 50 Mg Tablet, 25 MG PO DAILY, #30 TAB Prov:MELANIE YOUNG 07/18/17 Allergies Allergies: Coded Allergies: aspirin (Unverified Allergy, Mild, INTOLERANCE, 04/06/18) enalaprilat (Unverified Allergy, Mild, COUGHING, 04/06/18) PMhx/Soc History of Surgery: Yes (BRAIN TUMOR REMOVAL, PACEMAKER PLACEMENT, LAP BAND) Anesthesia Reaction: No Hx Neurological Disorder: Yes (CVA) Hx Respiratory Disorders: Yes (Asthma) Hx Cardiac Disorders: Yes (HTN, HLD, AFIB, PACEMAKER) Hx Psychiatric Problems: No Hx Miscellaneous Medical Probl: Yes (BENIGN BRAIN TUMOR, HERNIATED DISCS, LAP BAND) Hx Alcohol Use: No Hx Substance Use: No Hx Tobacco Use: No Smoking Status: Never smoker Physical Exam Vitals Vital Signs Date Temp Pulse Resp B/P (MAP) Pulse Ox O2 O2 Flow FiO2 Time Delivery Rate 04/06/18 Nasal 2 13:38 Cannula 04/06/18 97.7 82 20 156/89 96 11:55 (111) Physical Exam Const: No acute distress Head: Atraumatic Eyes: Normal Conjunctiva ENT: Normal External Ears, Nose and Mouth. Neck: Full range of motion. No meningismus. Resp: Clear to auscultation bilaterally Cardio: Regular rate and rhythm, no murmurs Abd: Soft, non tender, non distended. Normal bowel sounds Skin: No petechiae or rashes Back: No midline or flank tenderness Ext: No cyanosis, or edema Neur: Awake and alert Psych: Normal Mood and Affect Result Diagram: 04/06/18 1420 04/06/18 1420 Results 24 hrs Laboratory Tests Test 04/06/18 14:20 White Blood Count 5.4 10^3/ul Red Blood Count 4.02 10^6/ul Hemoglobin 10.8 g/dl Hematocrit 36.8 % Mean Corpuscular Volume 91.5 fl Mean Corpuscular Hemoglobin 26.9 pg Mean Corpuscular Hemoglobin Concent 29.3 g/dl Red Cell Distribution Width 17.0 % Platelet Count 214 10^3/UL Mean Platelet Volume 10.0 fl Immature Granulocytes % 0.400 % Neutrophils % 68.3 % Lymphocytes % 17.3 % Monocytes % 7.6 % Eosinophils % 5.8 % Basophils % 0.6 % Nucleated Red Blood Cells % 0.6 /100WBC Immature Granulocytes # 0.020 10^3/ul Neutrophils # 3.7 10^3/ul Lymphocytes # 0.9 10^3/ul Monocytes # 0.4 10^3/ul Eosinophils # 0.3 10^3/ul Basophils # 0.0 10^3/ul Nucleated Red Blood Cells # 0.0 10^3/ul Prothrombin Time 19.7 Sec Prothrombin Time Ratio 1.5 INR International Normalized Ratio 1.66 Sodium Level 143 mmol/L Potassium Level 3.8 mmol/L Chloride Level 105 mmol/L Carbon Dioxide Level 35 mmol/L Anion Gap 3 Blood Urea Nitrogen 28 mg/dl Creatinine 2.17 mg/dl Est Glomerular Filtrat Rate mL/min 28 mL/min Glucose Level 109 mg/dl Calcium Level 9.8 mg/dl Total Bilirubin 0.2 mg/dl Direct Bilirubin 0.00 mg/dl Indirect Bilirubin 0.2 mg/dl Aspartate Amino Transf (AST/SGOT) 19 IU/L Alanine Aminotransferase (ALT/SGPT) 9 IU/L Alkaline Phosphatase 146 IU/L Troponin I < 0.012 ng/ml B-Type Natriuretic Peptide 3300 PG/ML Total Protein 8.1 g/dl Albumin 4.2 g/dl Globulin 3.90 g/dl Albumin/Globulin Ratio 1.07 Lipase 84 U/L Thyroid Stimulating Hormone (TSH) 0.812 MIU/L Current Medications Medications Dose Sig/Vidhi Start Time Status Last (Trade) Ordered Route PRN Stop Time Admin Dose Reason Admin Furosemide 20 mg ONCE ONCE 04/06/18 DC 04/06/18 (Lasix) IV 17:00 17:00 04/06/18 17:01 Procedures/MDM This is a 62 year old female who presents with palpitations and chest pain. Her Pacemaker appears to be working appropriately. Her cardiac workup was negative and her symptoms may be GI related, however given her past cardiac history, ACS must be considered. I discussed this with the patient and shared decision making was made to admit for cardiac work up. She may have a small component of CHF associated so will give lasix. Pt admitted to Dr. Batres EKG: Rate/Rhythm: Electronic pacemaker QRS, ST, T-waves: No changes consistent w/ acute ischemia Impression: No evidence of ischemia. Electronic pacemaker Departure Diagnosis: Primary Impression: Chest pain Chest pain type: unspecified Qualified Codes: R07.9 - Chest pain, unspecified Additional Impression: Palpitation Condition: Stable MELANIE BENITEZ MD Apr 06, 2018 16:57
[2018-04-06] MEDS ORDERED: FUROSEMIDE 20 MG INJ IV ONE (17:00)
[2018-04-06] MEDS ORDERED: ALBUTEROL 0.083% (NEB) 2.5 MG/3 ML AMP HHN PRN (17:30)
[2018-04-06] MEDS ORDERED: ALPRAZOLAM 1 MG TAB PO PRN (17:30)
[2018-04-06] MEDS ORDERED: NITROGLYCERIN (SL) 0.4 MG TAB SL PRN (17:30)
[2018-04-06] MEDS ORDERED: ACETAMINOPHEN 325 MG TAB PO PRN (17:30)
[2018-04-06] MEDS ORDERED: morphine 2 MG INJ IV PRN (17:30)
[2018-04-06] MEDS ORDERED: NACL 0.9% 3 ML SYG IV SCH (17:30)
[2018-04-06] MEDS ORDERED: ONDANSETRON 4 MG INJ IV PRN (17:30)
[2018-04-06] MEDS ORDERED: MAGNESIUM HYDROXIDE 30ML CUP PO PRN (17:30)
[2018-04-06] MEDS ORDERED: DOCUSATE SODIUM 100 MG CAP PO PRN (17:30)
[2018-04-06] MEDS ORDERED: traMADol 50 MG TAB PO PRN (19:00)
--- NOTE | 2018-04-06 19:03 | HP ---
Date/Time of Note Date/Time of Note DATE: 04/06/18 TIME: 18:49 Assessment/Plan VTE Prophylaxis Pharmacological prophylaxis: rivaroxaban Lines/Catheters IV [facility] Saline Lock Assessment/Plan Assessment/Plan 1. Acute gastroenteritis - patient with N/V/D since Monday - will provide supportive care - EGD from last admission reports gastritis and negative for H.pylori - will treat supportively and continue on PPI BID 2. Acute on chronic diastolic HF - BNP noted - CXR does not appear overloaded but patient does admit to swelling in leg that are more than usual - Cardiology on board and appreciate recommendations - continue on diuretics 3. CKD - Patient states baseline Cr is 2.3. She was seen recently by her outpatient wet end supervisor, Dr Ward - Has been taking Naproxen and advised to discontinue - avoid nephrotoxic agents 4. Atrial fibrillation - rate controlled - continue Xarelto 5. Iron deficiency anemia - continue home PO supplements 6. hypothyroidism - continue replacement - TSH noted 7. Diet - cardiac 8. Disposition - Admit to telemetry for close monitoring in setting of epigastric pain and chest palpitations. Result Diagram: 04/06/18 1420 04/06/18 1420 Results 24hrs Laboratory Tests Test 04/06/18 14:20 White Blood Count 5.4 Red Blood Count 4.02 #L Hemoglobin 10.8 #L Hematocrit 36.8 #L Mean Corpuscular Volume 91.5 Mean Corpuscular Hemoglobin 26.9 L Mean Corpuscular Hemoglobin Concent 29.3 L Red Cell Distribution Width 17.0 H Platelet Count 214 Mean Platelet Volume 10.0 Immature Granulocytes % 0.400 Neutrophils % 68.3 Lymphocytes % 17.3 Monocytes % 7.6 Eosinophils % 5.8 Basophils % 0.6 Nucleated Red Blood Cells % 0.6 H Immature Granulocytes # 0.020 Neutrophils # 3.7 Lymphocytes # 0.9 Monocytes # 0.4 Eosinophils # 0.3 Basophils # 0.0 Nucleated Red Blood Cells # 0.0 Prothrombin Time 19.7 H Prothrombin Time Ratio 1.5 INR International Normalized Ratio 1.66 Sodium Level 143 Potassium Level 3.8 Chloride Level 105 Carbon Dioxide Level 35 H Anion Gap 3 L Blood Urea Nitrogen 28 H Creatinine 2.17 H Est Glomerular Filtrat Rate mL/min 28 L Glucose Level 109 Calcium Level 9.8 Total Bilirubin 0.2 Direct Bilirubin 0.00 Indirect Bilirubin 0.2 Aspartate Amino Transf (AST/SGOT) 19 Alanine Aminotransferase (ALT/SGPT) 9 L Alkaline Phosphatase 146 H Troponin I < 0.012 B-Type Natriuretic Peptide 3300 H Total Protein 8.1 Albumin 4.2 Globulin 3.90 H Albumin/Globulin Ratio 1.07 Lipase 84 Thyroid Stimulating Hormone (TSH) 0.812 HPI/ROS Admit Date/Time Admit Date/Time Apr 06, 2018 at 17:10 Hx of Present Illness 62 yo F with PMH atrial fibrillation, diastolic CHF, CKD, iron deficiency, and hypothyroid presents to ED with worsening epigastric pain since Monday with associated nausea, vomiting and diarrhea. Patient admits to not being able to keep any food or liquids down since Monday. Denies any recent sick contact. States she was admitted to [facility] in the past and diagnosed with Hyplori and feels the same discomfort. Patient also admits to feeling as if she was in atrial fibrillation yesterday with palpitations and chest discomfort, which has currently resolved. She was seen by her Loaf Counter last week who interrogated her pacer and told her she was in afib for 1 week straight. Patient denies any shortness of breath, dizziness, chest pain, wheezing, abdominal pain, constipation, or urinary symptoms. ROS All 12 systems reviewed and pertinent positives as per HPI. All others negative. Constitutional: nausea; No chills, No fatigue Eyes: No discharge ENT: No congestion Respiratory: No cough, No shortness of breath, No sputum, No wheezing Cardiovascular: edema, palpitations; No chest pain, No lightheadedness Gastrointestinal: diarrhea, nausea, vomiting; No pain Genitourinary: no complaints Musculoskeletal: no complaints Skin: No laceration, No rash Neurologic: headache; No confusion, No focal-weakness, No syncope Endocrine: no complaints Lymphatic: no complaints Psychological: nl mood/affect Immunologic: no complaints PMH/Family/Social Past Medical History Medical History: congestive heart failure, hypothyroid, renal disease, other (atrial fibrillation) Medications Current Medications Alprazolam (Xanax) 2 mg DAILY PRN PO ANXIETY; Start 04/06/18 at 17:30; Status UNV Amiodarone HCl (Cordarone) 200 mg DAILY PO ; Start 04/07/18 at 09:00; Status UNV Atenolol (Tenormin) 50 mg DAILY PO ; Start 04/07/18 at 09:00; Status UNV Cyclobenzaprine HCl (Flexeril) 10 mg QHS PO ; Start 04/06/18 at 21:00; Status UNV Ferrous Sulfate (Ferrous Sulfate (Ec)) 325 mg BID PO ; Start 04/06/18 at 21:00; Status UNV Levothyroxine Sodium (Synthroid) 100 mcg BEFORE BREAKFAST PO ; Start 04/07/18 at 07:00; Status UNV Miscellaneous Information 20 mg BID PO ; Start 04/06/18 at 21:00; Status UNV Miscellaneous Information 20 mg QHS PO ; Start 04/06/18 at 21:00; Status UNV Albuterol (Proventil 0.083% (Neb)) 2.5 mg Q2H RESP THERAPY PRN HHN SHORTNESS OF BREATH; Start 04/06/18 at 17:30; Status UNV Furosemide (Lasix) 20 mg DAILY IV ; Start 04/07/18 at 09:00; Status UNV IV Flush (NS 3 ml) 3 ml PER PROTOCOL IV ; Start 04/06/18 at 17:30; Status UNV Ondansetron HCl (Zofran Inj) 4 mg Q6H PRN IV NAUSEA/VOMITING; Start 04/06/18 at 17:30; Status UNV Nitroglycerin (Nitroglycerin (Sl Tab) 0.4 Mg) 1 tab Q5M PRN SL .CHEST PAIN; Start 04/06/18 at 17:30; Status UNV Acetaminophen (Tylenol Tab) 650 mg Q6H PRN PO .PAIN 1-3 OR TEMP; Start 04/06/18 at 17:30; Status UNV Morphine Sulfate (morphine) 2 mg Q4H PRN IV .PAIN 7-10; Start 04/06/18 at 17:30; Status UNV Docusate Sodium (Colace) 100 mg Q12H PRN PO .CONSTIPATION; Start 04/06/18 at 17:30; Status UNV Magnesium Hydroxide (Milk Of Mag) 30 ml DAILY PRN PO .CONSTIPATION; Start 04/06/18 at 17:30; Status UNV Coded Allergies: aspirin (Unverified Allergy, Mild, INTOLERANCE, 04/06/18) enalaprilat (Unverified Allergy, Mild, COUGHING, 04/06/18) Past Surgical History Past Surgical Hx: other Family History Significant Family History: heart disease, diabetes Social History Alcohol Use: none Smoking Status: Never smoker Drug Use: none Exam/Review of Systems Vital Signs Vitals Vital Signs Date Temp Pulse Resp B/P (MAP) Pulse Ox O2 O2 Flow FiO2 Time Delivery Rate 04/06/18 97.7 80 18 127/85 100 Room Air 18:21 (99) Nasal Cannula 04/06/18 2 13:38 Exam Exam General: Patient is a pleasant female, mild distress secondary to nausea HEENT: Atraumatic, normocephalic. The pupils are equal, round and reactive. Extraocular motor are intact Neck: Supple with full range of motion. No rigidity or meningismus Chest: nontender Lungs: Clear to auscultation bilaterally no crackles rales or wheezing Heart: Normal S1-S2, Regular rate and rhythm. no murmurs Abdomen: Soft , mild tenderness epigastric area, nondistended , bowel sounds are present. No guarding no rebound tenderness , No masses or organomegaly. No costovertebral temporal angle mass Extremities: swelling lower extremities bilaterally Neurologic: Normal mental status, speech normal, cranial nerves II through XII are intact, motor and sensory are intact, Additional Comments Home medications reviewed FRED MEYERS MD Apr 06, 2018 19:03
[2018-04-06 19:40] VITALS: Ht 170.2 cm; Wt 128.0 kg
[2018-04-06 20:00] VITALS: PULSE 80
[2018-04-06 20:25] VITALS: BP 140/85; PULSE 80; RESP 18
[2018-04-06] MEDS ORDERED: NON-FORMULARY/PATIENT OWN MED (Simvastatin* (Zocor*) 20 MG) PO SCH (21:00)
[2018-04-06] MEDS ORDERED: NON-FORMULARY/PATIENT OWN MED (Omeprazole* 20 MG) PO SCH (21:00)
[2018-04-06] MEDS: GABAPENTIN 300 MG CAP PO SCH (21:15)
[2018-04-06] MEDS: FERROUS SULFATE (EC) 325 MG TAB PO SCH (21:16)
[2018-04-06] MEDS: CYCLOBENZAPRINE 10 MG TAB PO SCH (22:12)
[2018-04-07] VITALS (10 sets, daily range): BP systolic 122–146; BP diastolic 64–92; PULSE 69–82; RESP 18–20
[2018-04-07] MEDS: LEVOTHYROXINE 100 MCG TAB PO SCH (06:18)
[2018-04-07] MEDS: PANTOPRAZOLE (EC) 40 MG TAB PO SCH ×2 (06:19→17:16)
--- NOTE | 2018-04-07 08:26 | CONS ---
Assessment/Plan Assessment/Plan Assessment/Plan (Daily) 1. Acute gastroenteritis 2. Acute on chronic diastolic HF 3. CKD 4. Afib 5. PPM -continue care for GI symptoms -Rate controlled, on xarelto -consider changing to po lasix as clinically better - no sob, no chf by cxr and bnp possibly elevated due to renal insuff -Normal EF by echo in 03/02 Consultation Date/Type/Reason Admit Date/Time Apr 06, 2018 at 17:10 Type of Consult Cardiology Date/Time of Note DATE: 04/07/18 TIME: 08:21 Hx of Present Illness 62 yo F with PMH atrial fibrillation, diastolic CHF, CKD, iron deficiency, and hypothyroid presents to ED with worsening epigastric pain since Monday with associated nausea, vomiting and diarrhea. Patient admits to not being able to keep any food or liquids down since Monday. Denies any recent sick contact. Yanet triplett she was admitted to [facility] in the past and diagnosed with Hyplori and feels the same discomfort. Patient also admits to feeling as if she was in atrial fibrillation yesterday with palpitations and chest discomfort, which has currently resolved. Patient denies any shortness of breath, dizziness, chest pain, wheezing, abdominal pain, constipation, or urinary symptom. She has recnetly been in afib by pacer interrogation with intermittent palpitations and atypical, noncardiac chest pain, currently being paced Past Medical History Home Meds Active Scripts Omeprazole* (Omeprazole*) 20 Mg Capsule.dr, 20 MG PO BID, #60 CAP 2 Refills Prov:MELANIE YOUNG 07/18/17 Ferrous Sulfate* (Ferrous Sulfate*) 325 Mg Tabec, 325 MG PO BID, #60 TAB 2 Refills Prov:MELANIE YOUNG 07/18/17 Albuterol Sulfate* (Proair HFA*) 8.5 Gm Hfa.aer.ad, 2 PUFF INH Q4, #1 INHALER Prov:CHIP JIMENEZ MD 05/08/17 Reported Medications Atenolol* (Atenolol*) 50 Mg Tablet, 50 MG PO DAILY, #30 TAB 04/06/18 Alprazolam* (Xanax*) 2 Mg Tablet, 2 MG PO DAILY PRN for ANXIETY, TAB 03/15/17 Gabapentin* (Gabapentin*) 300 Mg Capsule, 300 MG PO TID, #90 CAP 03/15/17 Simvastatin* (Zocor*) 20 Mg Tablet, 20 MG PO QHS, #30 TAB 03/15/17 Furosemide* (Furosemide*) 20 Mg Tablet, 20 MG PO DAILY, #60 TAB 03/15/17 Levothyroxine Sodium* (Levothyroxine Sodium*) 100 Mcg Tablet, 100 MCG PO BEFORE BREAKFAST, #30 TAB 03/15/17 Cyclobenzaprine Hcl* (Cyclobenzaprine Hcl*) 10 Mg Tablet, 10 MG PO QHS, #60 TAB 03/15/17 Allopurinol* (Allopurinol*) 300 Mg Tablet, 300 MG PO DAILY, TAB 03/15/17 Ergocalciferol (Vitamin D2) (VITAMIN D2) 50,000 Unit Capsule, 47799 UNIT PO Q7D, CAP 03/15/17 Potassium Chloride (Klor-Con) 10 Meq Tablet.sa, 10 MEQ PO DAILY, TAB.SA 03/15/17 Amiodarone Hcl* (Amiodarone Hcl*) 200 Mg Tablet, 200 MG PO DAILY, #30 TAB 03/15/17 Discontinued Scripts Cyclobenzaprine Hcl* (Cyclobenzaprine Hcl*) 10 Mg Tablet, 10 MG PO TID, #15 TAB Prov:CHIP JIMENEZ MD 01/22/18 Atenolol* (Atenolol*) 50 Mg Tablet, 25 MG PO DAILY, #30 TAB Prov:MELANIE YOUNG 07/18/17 Medications Current Medications Alprazolam (Xanax) 2 mg DAILY PRN PO ANXIETY; Start 04/06/18 at 17:30 Amiodarone HCl (Cordarone) 200 mg DAILY PO ; Start 04/07/18 at 09:00 Atenolol (Tenormin) 50 mg DAILY PO ; Start 04/07/18 at 09:00 Cyclobenzaprine HCl (Flexeril) 10 mg QHS PO Last administered on 04/06/18at 22:12; Admin Dose 10 MG; Start 04/06/18 at 22:00 Ferrous Sulfate (Ferrous Sulfate (Ec)) 325 mg BID PO Last administered on 04/06/18at 21:16; Admin Dose 325 MG; Start 04/06/18 at 21:00 Levothyroxine Sodium (Synthroid) 100 mcg BEFORE BREAKFAST PO Last administered on 2/23/19at 06:18; Admin Dose 100 MCG; Start 04/07/18 at 07:00 Albuterol (Proventil 0.083% (Neb)) 2.5 mg Q2H RESP THERAPY PRN HHN SHORTNESS OF BREATH; Start 04/06/18 at 17:30 IV Flush (NS 3 ml) 3 ml PER PROTOCOL IV ; Start 04/06/18 at 17:30 Ondansetron HCl (Zofran Inj) 4 mg Q6H PRN IV NAUSEA/VOMITING; Start 04/06/18 at 17:30 Nitroglycerin (Nitroglycerin (Sl Tab) 0.4 Mg) 1 tab Q5M PRN SL .CHEST PAIN; Start 04/06/18 at 17:30 Acetaminophen (Tylenol Tab) 650 mg Q6H PRN PO .PAIN 1-3 OR TEMP; Start 04/06/18 at 17:30 Morphine Sulfate (morphine) 2 mg Q4H PRN IV .PAIN 7-10; Start 04/06/18 at 17:30 Docusate Sodium (Colace) 100 mg Q12H PRN PO .CONSTIPATION; Start 04/06/18 at 17:30 Magnesium Hydroxide (Milk Of Mag) 30 ml DAILY PRN PO .CONSTIPATION; Start 04/06/18 at 17:30 Furosemide (Lasix) 20 mg BID DIURETICS IV ; Start 04/07/18 at 09:00 Rivaroxaban (Xarelto) 15 mg WITH DINNER PO ; Start 04/07/18 at 18:00 Gabapentin (Neurontin) 300 mg QHS PO Last administered on 04/06/18at 21:15; Admin Dose 300 MG; Start 04/06/18 at 21:00 Pantoprazole (Protonix Tab) 40 mg BID@06,18 PO Last administered on 04/07/18at 06:19; Admin Dose 40 MG; Start 04/07/18 at 06:00 Tramadol HCl (Ultram) 50 mg Q6H PRN PO MODERATE PAIN LEVEL 4-6; Start 04/06/18 at 19:00 Atorvastatin Calcium (Lipitor) 10 mg DAILY@21 PO ; Start 04/07/18 at 21:00 Allergies: Coded Allergies: aspirin (Unverified Allergy, Mild, INTOLERANCE, 04/06/18) enalaprilat (Unverified Allergy, Mild, COUGHING, 04/06/18) Past Surgical History Past Surgical Hx: other Social History Alcohol Use: none Smoking Status: Former smoker Drug Use: none Exam/Review of Systems Vital Signs Vitals Vital Signs Date Temp Pulse Resp B/P (MAP) Pulse Ox O2 O2 Flow FiO2 Time Delivery Rate 04/07/18 98.2 72 19 124/64 96 07:51 (84) 04/06/18 Room Air 20:25 04/06/18 2 13:38 Intake and Output 04/06/18 04/06/18 04/07/18 1515:00 23:00 07:00 IntakeIntake Total 500 ml BalanceBalance 500 ml Labs Result Diagram: 04/07/18 0525 04/07/18 0525 Results 24hrs Laboratory Tests Test 04/06/18 14:20 04/06/18 20:44 04/07/18 05:25 White Blood Count 5.4 5.8 Red Blood Count 4.02 #L 3.57 L Hemoglobin 10.8 #L 9.8 L Hematocrit 36.8 #L 32.5 L Mean Corpuscular Volume 91.5 91.0 Mean Corpuscular Hemoglobin 26.9 L 27.5 L Mean Corpuscular Hemoglobin Concent 29.3 L 30.2 L Red Cell Distribution Width 17.0 H 17.3 H Platelet Count 214 198 Mean Platelet Volume 10.0 10.9 H Immature Granulocytes % 0.400 0.300 Neutrophils % 68.3 62.5 Lymphocytes % 17.3 21.0 Monocytes % 7.6 8.7 Eosinophils % 5.8 6.8 Basophils % 0.6 0.7 Nucleated Red Blood Cells % 0.6 H 1.2 H Immature Granulocytes # 0.020 0.020 Neutrophils # 3.7 3.6 Lymphocytes # 0.9 1.2 Monocytes # 0.4 0.5 Eosinophils # 0.3 0.4 Basophils # 0.0 0.0 Nucleated Red Blood Cells # 0.0 0.1 H Prothrombin Time 19.7 H Prothrombin Time Ratio 1.5 INR International Normalized Ratio 1.66 Sodium Level 143 143 Potassium Level 3.8 3.7 Chloride Level 105 107 Carbon Dioxide Level 35 H 31 Anion Gap 3 L 5 Blood Urea Nitrogen 28 H 26 H Creatinine 2.17 H 2.03 H Est Glomerular Filtrat Rate mL/min 28 L 30 L Glucose Level 109 109 Calcium Level 9.8 9.5 Total Bilirubin 0.2 Direct Bilirubin 0.00 Indirect Bilirubin 0.2 Aspartate Amino Transf (AST/SGOT) 19 Alanine Aminotransferase (ALT/SGPT) 9 L Alkaline Phosphatase 146 H Troponin I < 0.012 < 0.012 B-Type Natriuretic Peptide 3300 H Total Protein 8.1 Albumin 4.2 Globulin 3.90 H Albumin/Globulin Ratio 1.07 Lipase 84 Thyroid Stimulating Hormone (TSH) 0.812 Magnesium Level 2.3 Triglycerides Level 116 Cholesterol Level 159 LDL Cholesterol, Calculated 95 HDL Cholesterol 41 Cholesterol/HDL Ratio 3.8 Medications Medications Current Medications Alprazolam (Xanax) 2 mg DAILY PRN PO ANXIETY; Start 04/06/18 at 17:30 Amiodarone HCl (Cordarone) 200 mg DAILY PO ; Start 04/07/18 at 09:00 Atenolol (Tenormin) 50 mg DAILY PO ; Start 04/07/18 at 09:00 Cyclobenzaprine HCl (Flexeril) 10 mg QHS PO Last administered on 04/06/18at 22:12; Admin Dose 10 MG; Start 04/06/18 at 22:00 Ferrous Sulfate (Ferrous Sulfate (Ec)) 325 mg BID PO Last administered on 04/06/18at 21:16; Admin Dose 325 MG; Start 04/06/18 at 21:00 Levothyroxine Sodium (Synthroid) 100 mcg BEFORE BREAKFAST PO Last administered on 04/07/18at 06:18; Admin Dose 100 MCG; Start 04/07/18 at 07:00 Albuterol (Proventil 0.083% (Neb)) 2.5 mg Q2H RESP THERAPY PRN HHN SHORTNESS OF BREATH; Start 04/06/18 at 17:30 IV Flush (NS 3 ml) 3 ml PER PROTOCOL IV ; Start 04/06/18 at 17:30 Ondansetron HCl (Zofran Inj) 4 mg Q6H PRN IV NAUSEA/VOMITING; Start 04/06/18 at 17:30 Nitroglycerin (Nitroglycerin (Sl Tab) 0.4 Mg) 1 tab Q5M PRN SL .CHEST PAIN; Start 04/06/18 at 17:30 Acetaminophen (Tylenol Tab) 650 mg Q6H PRN PO .PAIN 1-3 OR TEMP; Start 04/06/18 at 17:30 Morphine Sulfate (morphine) 2 mg Q4H PRN IV .PAIN 7-10; Start 04/06/18 at 17:30 Docusate Sodium (Colace) 100 mg Q12H PRN PO .CONSTIPATION; Start 04/06/18 at 17:30 Magnesium Hydroxide (Milk Of Mag) 30 ml DAILY PRN PO .CONSTIPATION; Start 04/06/18 at 17:30 Furosemide (Lasix) 20 mg BID DIURETICS IV ; Start 04/07/18 at 09:00 Rivaroxaban (Xarelto) 15 mg WITH DINNER PO ; Start 04/07/18 at 18:00 Gabapentin (Neurontin) 300 mg QHS PO Last administered on 04/06/18at 21:15; Admin Dose 300 MG; Start 04/06/18 at 21:00 Pantoprazole (Protonix Tab) 40 mg BID@06,18 PO Last administered on 04/07/18at 06:19; Admin Dose 40 MG; Start 04/07/18 at 06:00 Tramadol HCl (Ultram) 50 mg Q6H PRN PO MODERATE PAIN LEVEL 4-6; Start 04/06/18 at 19:00 Atorvastatin Calcium (Lipitor) 10 mg DAILY@21 PO ; Start 04/07/18 at 21:00 LIZZETTE LEMUS MD Apr 07, 2018 08:26
[2018-04-07] MEDS ORDERED: FUROSEMIDE 20 MG INJ IV SCH (09:00)
[2018-04-07] MEDS: ATENOLOL 50 MG TAB PO SCH (09:02)
[2018-04-07] MEDS: FUROSEMIDE 20 MG INJ IV SCH ×2 (09:03→17:17)
[2018-04-07] MEDS: FERROUS SULFATE (EC) 325 MG TAB PO SCH ×2 (09:03→20:09)
[2018-04-07] MEDS: AMIODARONE 200 MG TAB PO SCH (09:03)
--- NOTE | 2018-04-07 09:42 | PN ---
Date/Time of Note Date/Time of Note DATE: 04/07/18 TIME: 09:42 Assessment/Plan VTE Prophylaxis Risk score (from Ns)>0 risk: 5 SCD applied (from Ns): No SCD contraindicated: low risk/ambulating Pharmacological prophylaxis: rivaroxaban Lines/Catheters IV Catheter Type (from Rust): Saline Lock Assessment/Plan Assessment/Plan 1. Acute gastroenteritis - will order stool studies to rule out any bacterial etiology. Denies recent antibiotic use - Supportive care - will provide supportive care - EGD from last admission reports gastritis and negative for H.pylori 2. Acute on chronic diastolic HF - BNP noted - CXR does not appear overloaded, but patient does admit to swelling in leg that are more than usual - Cardiology on board and appreciate recommendations - continue on diuretics. Will change to PO 3. CKD - Cr 2.03 this am - Patient states baseline Cr is 2.3. She was seen recently by her outpatient instrumentation and control technician, Dr Ward - Has been taking Naproxen and advised to discontinue - avoid nephrotoxic agents 4. Atrial fibrillation - rate controlled - continue Xarelto 5. Iron deficiency anemia - continue home PO supplements 6. hypothyroidism - continue replacement - TSH noted 7. Disposition - Stool studies sent and if negative will give Imodium. When able to tolerate PO intake with GI issues, will d/c home Result Diagram: 04/07/1852404/07/18 0525 Results 24hrs Laboratory Tests Test 04/06/18 14:20 04/06/18 20:44 04/07/18 05:25 White Blood Count 5.4 5.8 Red Blood Count 4.02 #L 3.57 L Hemoglobin 10.8 #L 9.8 L Hematocrit 36.8 #L 32.5 L Mean Corpuscular Volume 91.5 91.0 Mean Corpuscular Hemoglobin 26.9 L 27.5 L Mean Corpuscular Hemoglobin Concent 29.3 L 30.2 L Red Cell Distribution Width 17.0 H 17.3 H Platelet Count 214 198 Mean Platelet Volume 10.0 10.9 H Immature Granulocytes % 0.400 0.300 Neutrophils % 68.3 62.5 Lymphocytes % 17.3 21.0 Monocytes % 7.6 8.7 Eosinophils % 5.8 6.8 Basophils % 0.6 0.7 Nucleated Red Blood Cells % 0.6 H 1.2 H Immature Granulocytes # 0.020 0.020 Neutrophils # 3.7 3.6 Lymphocytes # 0.9 1.2 Monocytes # 0.4 0.5 Eosinophils # 0.3 0.4 Basophils # 0.0 0.0 Nucleated Red Blood Cells # 0.0 0.1 H Prothrombin Time 19.7 H Prothrombin Time Ratio 1.5 INR International Normalized Ratio 1.66 Sodium Level 143 143 Potassium Level 3.8 3.7 Chloride Level 105 107 Carbon Dioxide Level 35 H 31 Anion Gap 3 L 5 Blood Urea Nitrogen 28 H 26 H Creatinine 2.17 H 2.03 H Est Glomerular Filtrat Rate mL/min 28 L 30 L Glucose Level 109 109 Calcium Level 9.8 9.5 Total Bilirubin 0.2 Direct Bilirubin 0.00 Indirect Bilirubin 0.2 Aspartate Amino Transf (AST/SGOT) 19 Alanine Aminotransferase (ALT/SGPT) 9 L Alkaline Phosphatase 146 H Troponin I < 0.012 < 0.012 B-Type Natriuretic Peptide 3300 H Total Protein 8.1 Albumin 4.2 Globulin 3.90 H Albumin/Globulin Ratio 1.07 Lipase 84 Thyroid Stimulating Hormone (TSH) 0.812 Magnesium Level 2.3 Triglycerides Level 116 Cholesterol Level 159 LDL Cholesterol, Calculated 95 HDL Cholesterol 41 Cholesterol/HDL Ratio 3.8 Subjective 24 Hr Interval Summary Free Text/Dictation Patient is still complaining of diarrhea and already went twice this am. Discussed findings of last EGD as well with +gastritis but no Hpylori Exam/Review of Systems Exam Vitals Vital Signs Date Temp Pulse Resp B/P (MAP) Pulse Ox O2 O2 Flow FiO2 Time Delivery Rate 04/07/18 80 08:01 04/07/18 98.2 19 124/64 96 07:51 (84) 04/06/18 Room Air 20:25 04/06/18 2 13:38 Intake and Output 04/06/18 04/06/18 04/07/18 1414:59 22:59 06:59 IntakeIntake Total 500 ml BalanceBalance 500 ml Exam General: Patient is a pleasant female, no acute distress Neck: Supple Chest: nontender Lungs: Clear to auscultation bilaterally no crackles rales or wheezing Heart: Normal S1-S2, Regular rate and rhythm. no murmurs Abdomen: Soft , mild tenderness epigastric area, nondistended , bowel sounds are present Extremities: mild swelling lower extremities bilaterally Results Results 24hrs Laboratory Tests Test 04/06/18 14:20 04/06/18 20:44 04/07/18 05:25 White Blood Count 5.4 5.8 Red Blood Count 4.02 #L 3.57 L Hemoglobin 10.8 #L 9.8 L Hematocrit 36.8 #L 32.5 L Mean Corpuscular Volume 91.5 91.0 Mean Corpuscular Hemoglobin 26.9 L 27.5 L Mean Corpuscular Hemoglobin Concent 29.3 L 30.2 L Red Cell Distribution Width 17.0 H 17.3 H Platelet Count 214 198 Mean Platelet Volume 10.0 10.9 H Immature Granulocytes % 0.400 0.300 Neutrophils % 68.3 62.5 Lymphocytes % 17.3 21.0 Monocytes % 7.6 8.7 Eosinophils % 5.8 6.8 Basophils % 0.6 0.7 Nucleated Red Blood Cells % 0.6 H 1.2 H Immature Granulocytes # 0.020 0.020 Neutrophils # 3.7 3.6 Lymphocytes # 0.9 1.2 Monocytes # 0.4 0.5 Eosinophils # 0.3 0.4 Basophils # 0.0 0.0 Nucleated Red Blood Cells # 0.0 0.1 H Prothrombin Time 19.7 H Prothrombin Time Ratio 1.5 INR International Normalized Ratio 1.66 Sodium Level 143 143 Potassium Level 3.8 3.7 Chloride Level 105 107 Carbon Dioxide Level 35 H 31 Anion Gap 3 L 5 Blood Urea Nitrogen 28 H 26 H Creatinine 2.17 H 2.03 H Est Glomerular Filtrat Rate mL/min 28 L 30 L Glucose Level 109 109 Calcium Level 9.8 9.5 Total Bilirubin 0.2 Direct Bilirubin 0.00 Indirect Bilirubin 0.2 Aspartate Amino Transf (AST/SGOT) 19 Alanine Aminotransferase (ALT/SGPT) 9 L Alkaline Phosphatase 146 H Troponin I < 0.012 < 0.012 B-Type Natriuretic Peptide 3300 H Total Protein 8.1 Albumin 4.2 Globulin 3.90 H Albumin/Globulin Ratio 1.07 Lipase 84 Thyroid Stimulating Hormone (TSH) 0.812 Magnesium Level 2.3 Triglycerides Level 116 Cholesterol Level 159 LDL Cholesterol, Calculated 95 HDL Cholesterol 41 Cholesterol/HDL Ratio 3.8 Medications Medication Current Medications Alprazolam (Xanax) 2 mg DAILY PRN PO ANXIETY; Start 04/06/18 at 17:30 Amiodarone HCl (Cordarone) 200 mg DAILY PO Last administered on 04/07/18 09:03; Admin Dose 200 MG; Start 04/07/18 at 09:00 Atenolol (Tenormin) 50 mg DAILY PO Last administered on 04/07/18 09:02; Admin Dose 50 MG; Start 04/07/18 at 09:00 Cyclobenzaprine HCl (Flexeril) 10 mg QHS PO Last administered on 04/06/18 22:12; Admin Dose 10 MG; Start 04/06/18 at 22:00 Ferrous Sulfate (Ferrous Sulfate (Ec)) 325 mg BID PO Last administered on 04/07/18 09:03; Admin Dose 325 MG; Start 04/06/18 at 21:00 Levothyroxine Sodium (Synthroid) 100 mcg BEFORE BREAKFAST PO Last administered on 04/07/18 06:18; Admin Dose 100 MCG; Start 04/07/18 at 07:00 Albuterol (Proventil 0.083% (Neb)) 2.5 mg Q2H RESP THERAPY PRN HHN SHORTNESS OF BREATH; Start 04/06/18 at 17:30 IV Flush (NS 3 ml) 3 ml PER PROTOCOL IV ; Start 04/06/18 at 17:30 Ondansetron HCl (Zofran Inj) 4 mg Q6H PRN IV NAUSEA/VOMITING; Start 04/06/18 at 17:30 Nitroglycerin (Nitroglycerin (Sl Tab) 0.4 Mg) 1 tab Q5M PRN SL .CHEST PAIN; Start 04/06/18 at 17:30 Acetaminophen (Tylenol Tab) 650 mg Q6H PRN PO .PAIN 1-3 OR TEMP; Start 04/06/18 at 17:30 Morphine Sulfate (morphine) 2 mg Q4H PRN IV .PAIN 7-10; Start 04/06/18 at 17:30 Docusate Sodium (Colace) 100 mg Q12H PRN PO .CONSTIPATION; Start 04/06/18 at 17:30 Magnesium Hydroxide (Milk Of Mag) 30 ml DAILY PRN PO .CONSTIPATION; Start 04/06/18 at 17:30 Furosemide (Lasix) 20 mg BID DIURETICS IV Last administered on 04/07/18 09:03; Admin Dose 20 MG; Start 04/07/18 at 09:00 Rivaroxaban (Xarelto) 15 mg WITH DINNER PO ; Start 04/07/18 at 18:00 Gabapentin (Neurontin) 300 mg QHS PO Last administered on 04/06/18at 21:15; Admin Dose 300 MG; Start 04/06/18 at 21:00 Pantoprazole (Protonix Tab) 40 mg BID@06,18 PO Last administered on 04/07/18at 06:19; Admin Dose 40 MG; Start 04/07/18 at 06:00 Tramadol HCl (Ultram) 50 mg Q6H PRN PO MODERATE PAIN LEVEL 4-6; Start 04/06/18 at 19:00 Atorvastatin Calcium (Lipitor) 10 mg DAILY@21 PO ; Start 04/07/18 at 21:00 FRED MEYERS MD Apr 07, 2018 09:42
--- NOTE | 2018-04-07 14:15 | RADRPT ---
Echocardiogram Report Patient Name: Mello DARLING ID: [id number] : 1955 (62y 11m)Study Date: 04/07/2018 9:00:23 AM Gender: FAccession #: [id number] Tech: KRISTIN Location: Ref.Physician: FRED MEYERS Height(Cm): BSA: Weight(Kg): Quality: GoodAccount #: Procedures: Echocardiographic Report: Transthoracic echocardiogram with complete 2D, M-Mode, and doppler examination. Indications: Congestive Heart Failure. Measurements: 2D/M Mode Doppler Measurement Value Normal Range Measurement Value Normal Range LVIDd 2D 5.0 [ 3.8 - 5.2 ] cm MARIELENA Vmax 2.8 [ 2.0 - 4.0 ] cm2 LVIDs 2D 3.5 [ 2.2 - 3.5 ] cm AV Mean Kp 1.0 [ 70.0 - 90.0 ] cm/sec LVPWd 2D 1.3 [ 0.6 - 0.9 ] cm AV Mean PG 4.0 [ 2.0 - 4.0 ] mmHg IVSd 2D 1.3 [ 0.6 - 0.9 ] cm AV Peak Kp 1.3 [ 100.0 - 170.0 ] cm/sec IVS/LVPW 2D 0.9 ratio AV Peak PG 6.0 [ 2.0 - 9.0 ] mmHg EF 2D 55.0 [ 54.0 - 74.0 ] percent AV VTI 24.6 cm LVOT Diam 2.1 [ 2.1 - 2.5 ] cm LVOT Peak Kp 1.0 [ 70.0 - 110.0 ] cm/sec LVOT Area 3.5 cm2 LVOT Peak PG 4.0 [ 2.0 - 6.0 ] mmHg MV E Peak Kp 1.1 [ 60.0 - 130.0 ] cm/sec MV A Peak Kp 0.4 [ 100.0 - 120.0 ] cm/sec MV E/A 2.7 [ 0.8 - 1.5 ] ratio MV Decel Time 232 [ 104 - 258 ] msec Lat E` Kp 0.1 [ 10.0 - 15.0 ] cm/sec Med E` Kp 0.1 cm/sec MV E/A 2.7 [ 0.8 - 1.5 ] ratio TR Peak Kp 2.4 [ 100.0 - 280.0 ] cm/sec TR Peak PG 22.0 mmHg PV Peak Kp 0.8 [ 40.0 - 80.0 ] cm/sec PV Peak PG 3.0 mmHg RA Pressure 3.0 mmHg Findings: Left Ventricle: Normal left ventricular systolic function. Normal left ventricular cavity size. Mild concentric left ventricular hypertrophy. Ejection fraction is visually estimated at 55-60 %. Right Ventricle: Normal right ventricular size. Normal right ventricular systolic function. Left Atrium: There is severe enlargement of left atrium. Right Atrium: There is mild enlargement of right atrium. Mitral Valve: Mild mitral annular calcification. Mild to moderate mitral valve regurgitation. Aortic Valve: Normal appearance of the aortic valve. No significant aortic stenosis with trace insufficiency. Tricuspid Valve: Normal appearance of the tricuspid valve. Estimated peak PA systolic pressure 25 mmHg. There is trace tricuspid regurgitation. Pulmonic Valve: Normal pulmonic valve appearance. There is trace pulmonic regurgitation. Pericardium: Normal pericardium with no significant pericardial effusion. Aorta: Normal aortic root. IVC: Normal size and normal respiratory collapse consistent with normal right atrial pressure. Conclusions: Normal left ventricular systolic function. Normal left ventricular cavity size. Mild concentric left ventricular hypertrophy. Ejection fraction is visually estimated at 55-60 %. Mild mitral annular calcification. Mild to moderate mitral valve regurgitation. Estimated peak PA systolic pressure 25 mmHg based on RA pressure of 3 mmHg. Electronically Signed By: Koffi Marshall 2018-04-07 14:15:16 PST
[2018-04-07] MEDS: RIVAROXABAN 15 MG TABLET PO SCH (18:43)
[2018-04-07] MEDS: GABAPENTIN 300 MG CAP PO SCH (20:09)
[2018-04-07] MEDS: CYCLOBENZAPRINE 10 MG TAB PO SCH (20:09)
[2018-04-07] MEDS: ATORVASTATIN 10 MG TAB PO SCH (20:09)
[2018-04-08] VITALS (12 sets, daily range): BP systolic 131–141; BP diastolic 67–97; PULSE 68–89; RESP 18–20
[2018-04-08] MEDS: LEVOTHYROXINE 100 MCG TAB PO SCH (06:13)
[2018-04-08] MEDS: PANTOPRAZOLE (EC) 40 MG TAB PO SCH ×2 (06:13→17:30)
[2018-04-08] MEDS: ATENOLOL 50 MG TAB PO SCH (08:17)
[2018-04-08] MEDS: FUROSEMIDE 40 MG TAB PO SCH (08:17)
[2018-04-08] MEDS: FERROUS SULFATE (EC) 325 MG TAB PO SCH ×2 (08:17→21:09)
[2018-04-08] MEDS: AMIODARONE 200 MG TAB PO SCH (08:18)
--- NOTE | 2018-04-08 08:37 | PN ---
Date/Time of Note Date/Time of Note DATE: 04/08/18 TIME: 08:37 Assessment/Plan VTE Prophylaxis Risk score (from [facility])>0 risk: 6 [place] [facility] [place]CD contraindicated: low risk/ambulating Pharmacological prophylaxis: apixaban Pharm contraindication: low risk/ambulating Lines/Catheters IV [facility]from [facility] Saline Lock Assessment/Plan Assessment/Plan 1. Acute gastroenteritis - still with vomiting and diarrhea - stool studies ordered - will provide supportive care - EGD from last admission reports gastritis and negative for H.pylori 2. Diastolic HF - Lasix continued - BNP noted - CXR does not appear overloaded, but patient does admit to swelling in leg that are more than usual - Cardiology on board and appreciate recommendations 3. CKD - Cr 2.03 this am - Patient states baseline Cr is 2.3. She was seen recently by her outpatient oil house attendant, Dr Ward - Has been taking Naproxen and advised to discontinue - avoid nephrotoxic agents 4. Atrial fibrillation - rate controlled - continue Xarelto 5. Iron deficiency anemia - continue home PO supplements 6. hypothyroidism - continue replacement - TSH noted 7. Asthma - will try Singulair 8. Disposition - Stool studies sent and if negative will give Imodium. - When able to tolerate PO intake without GI issues, will d/c home Result Diagram: 04/07/1852404/07/18 05 Subjective 24 Hr Interval Summary Free Text/Dictation Patient still with vomiting and diarrhea. Left stool sample this am for nursing and waiting to be collected. Also complaining of chest tightness overnight with sensation that her lungs are being constricted with noted asthma history. She also is complaining of nasal congestion. Exam/Review of Systems Exam Vitals Vital Signs Date Temp Pulse Resp B/P (MAP) Pulse Ox O2 O2 Flow FiO2 Time Delivery Rate 04/08/18 98.0 89 18 135/85 98 07:50 (102) 04/06/18 Room Air 20:25 04/06/18 2 13:38 Intake and Output 04/07/18 04/07/18 04/08/18 1414:59 22:59 06:59 IntakeIntake Total 800 ml BalanceBalance 800 ml Exam General: Patient is a pleasant female, no acute distress Neck: Supple Lungs: Clear to auscultation bilaterally no crackles rales or wheezing Heart: Normal S1-S2, Regular rate and rhythm. no murmurs Abdomen: Soft , mild tenderness epigastric area, nondistended , bowel sounds are present Extremities: mild swelling lower extremities bilaterally Medications Medication Current Medications Alprazolam (Xanax) 2 mg DAILY PRN PO ANXIETY; Start 04/06/18 at 17:30 Amiodarone HCl (Cordarone) 200 mg DAILY PO Last administered on 04/08/18at 08:18; Admin Dose 200 MG; Start 04/07/18 at 09:00 Atenolol (Tenormin) 50 mg DAILY PO Last administered on 04/08/18 08:17; Admin Dose 50 MG; Start 04/07/18 at 09:00 Cyclobenzaprine HCl (Flexeril) 10 mg QHS PO Last administered on 04/07/18at 20:09; Admin Dose 10 MG; Start 04/06/18 at 22:00 Ferrous Sulfate (Ferrous Sulfate (Ec)) 325 mg BID PO Last administered on 04/08/18at 08:17; Admin Dose 325 MG; Start 04/06/18 at 21:00 Levothyroxine Sodium (Synthroid) 100 mcg BEFORE BREAKFAST PO Last administered on 04/08/18at 06:13; Admin Dose 100 MCG; Start 04/07/18 at 07:00 Albuterol (Proventil 0.083% (Neb)) 2.5 mg Q2H RESP THERAPY PRN HHN SHORTNESS OF BREATH; Start 04/06/18 at 17:30 IV Flush (NS 3 ml) 3 ml PER PROTOCOL IV ; Start 04/06/18 at 17:30 Ondansetron HCl (Zofran Inj) 4 mg Q6H PRN IV NAUSEA/VOMITING; Start 04/06/18 at 17:30 Nitroglycerin (Nitroglycerin (Sl Tab) 0.4 Mg) 1 tab Q5M PRN SL .CHEST PAIN; Start 04/06/18 at 17:30 Acetaminophen (Tylenol Tab) 650 mg Q6H PRN PO .PAIN 1-3 OR TEMP; Start 04/06/18 at 17:30 Morphine Sulfate (morphine) 2 mg Q4H PRN IV .PAIN 7-10; Start 04/06/18 at 17:30 Docusate Sodium (Colace) 100 mg Q12H PRN PO .CONSTIPATION; Start 04/06/18 at 17:30 Magnesium Hydroxide (Milk Of Mag) 30 ml DAILY PRN PO .CONSTIPATION; Start 04/06/18 at 17:30 Rivaroxaban (Xarelto) 15 mg WITH DINNER PO Last administered on 04/07/18at 18:43; Admin Dose 15 MG; Start 04/07/18 at 18:00 Gabapentin (Neurontin) 300 mg QHS PO Last administered on 04/07/18at 20:09; Admin Dose 300 MG; Start 04/06/18 at 21:00 Pantoprazole (Protonix Tab) 40 mg BID@06,18 PO Last administered on 04/08/18 06:13; Admin Dose 40 MG; Start 04/07/18 at 06:00 Tramadol HCl (Ultram) 50 mg Q6H PRN PO MODERATE PAIN LEVEL 4-6; Start 04/06/18 at 19:00 Atorvastatin Calcium (Lipitor) 10 mg DAILY@21 PO Last administered on 04/07/18at 20:09; Admin Dose 10 MG; Start 04/07/18 at 21:00 Furosemide (Lasix) 40 mg DAILY PO Last administered on 04/08/18 08:17; Admin Dose 40 MG; Start 04/08/18 at 09:00 FRED MEYERS MD Apr 08, 2018 08:37
[2018-04-08] MEDS ORDERED: SALINE 0.65% 45 ML NAS SPRAY NASAL PRN (10:00)
[2018-04-08] MEDS: RIVAROXABAN 15 MG TABLET PO SCH (17:30)
[2018-04-08] MEDS: ATORVASTATIN 10 MG TAB PO SCH (21:09)
[2018-04-08] MEDS: CYCLOBENZAPRINE 10 MG TAB PO SCH (21:09)
[2018-04-08] MEDS: MONTELUKAST 10 MG TAB PO SCH (21:09)
[2018-04-08] MEDS: GABAPENTIN 300 MG CAP PO SCH (21:09)
[2018-04-09] VITALS (10 sets, daily range): BP systolic 120–148; BP diastolic 68–84; PULSE 60–80; RESP 16–18
[2018-04-09] MEDS: PANTOPRAZOLE (EC) 40 MG TAB PO SCH ×2 (06:02→17:15)
[2018-04-09] MEDS: LEVOTHYROXINE 100 MCG TAB PO SCH (06:03)
[2018-04-09] MEDS: ATENOLOL 50 MG TAB PO SCH (08:10)
[2018-04-09] MEDS: AMIODARONE 200 MG TAB PO SCH (08:10)
[2018-04-09] MEDS: FERROUS SULFATE (EC) 325 MG TAB PO SCH ×2 (08:10→20:17)
[2018-04-09] MEDS: FUROSEMIDE 40 MG TAB PO SCH (08:11)
[2018-04-09] MEDS ORDERED: BARIUM SULF 2% 450 ML BTL (BERRY SMOOTHIE) PO ONE (11:30)
--- NOTE | 2018-04-09 11:32 | PN ---
Date/Time of Note Date/Time of Note DATE: 04/09/18 TIME: 11:32 Objective Vitals Vital Signs Date Temp Pulse Resp B/P (MAP) Pulse Ox O2 O2 Flow FiO2 Time Delivery Rate 04/09/18 80 09:00 04/09/18 98.0 18 148/68 98 07:48 (94) 04/06/18 Room Air 20:25 04/06/18 2 13:38 Intake and Output 04/08/18 04/08/18 04/09/18 1515:00 23:00 07:00 IntakeIntake Total 750 ml 600 ml BalanceBalance 750 ml 600 ml Results Result Diagram: 04/07/1852404/07/18524 Medications Medications Current Medications Alprazolam (Xanax) 2 mg DAILY PRN PO ANXIETY; Start 04/06/18 at 17:30 Amiodarone HCl (Cordarone) 200 mg DAILY PO Last administered on 04/09/18at 08:10; Admin Dose 200 MG; Start 04/07/18 at 09:00 Atenolol (Tenormin) 50 mg DAILY PO Last administered on 04/09/18at 08:10; Admin Dose 50 MG; Start 04/07/18 at 09:00 Cyclobenzaprine HCl (Flexeril) 10 mg QHS PO Last administered on 04/08/18at 21 :09; Admin Dose 10 MG; Start 04/06/18 at 22:00 Ferrous Sulfate (Ferrous Sulfate (Ec)) 325 mg BID PO Last administered on 04/09/18at 08:10; Admin Dose 325 MG; Start 04/06/18 at 21:00 Levothyroxine Sodium (Synthroid) 100 mcg BEFORE BREAKFAST PO Last administered on 04/09/18at 06:03; Admin Dose 100 MCG; Start 04/07/18 at 07:00 Albuterol (Proventil 0.083% (Neb)) 2.5 mg Q2H RESP THERAPY PRN HHN SHORTNESS OF BREATH; Start 04/06/18 at 17:30 IV Flush (NS 3 ml) 3 ml PER PROTOCOL IV ; Start 04/06/18 at 17:30 Ondansetron HCl (Zofran Inj) 4 mg Q6H PRN IV NAUSEA/VOMITING; Start 04/06/18 at 17:30 Nitroglycerin (Nitroglycerin (Sl Tab) 0.4 Mg) 1 tab Q5M PRN SL .CHEST PAIN; Start 04/06/18 at 17:30 Acetaminophen (Tylenol Tab) 650 mg Q6H PRN PO .PAIN 1-3 OR TEMP; Start 04/06/18 at 17:30 Morphine Sulfate (morphine) 2 mg Q4H PRN IV .PAIN 7-10; Start 04/06/18 at 17:30 Docusate Sodium (Colace) 100 mg Q12H PRN PO .CONSTIPATION; Start 04/06/18 at 17:30 Magnesium Hydroxide (Milk Of Mag) 30 ml DAILY PRN PO .CONSTIPATION; Start 04/06/18 at 17:30 Rivaroxaban (Xarelto) 15 mg WITH DINNER PO Last administered on 04/08/18at 17:30; Admin Dose 15 MG; Start 04/07/18 at 18:00 Gabapentin (Neurontin) 300 mg QHS PO Last administered on 04/08/18at 21:09; Admin Dose 300 MG; Start 04/06/18 at 21:00 Pantoprazole (Protonix Tab) 40 mg BID@06,18 PO Last administered on 04/09/18at 06:02; Admin Dose 40 MG; Start 04/07/18 at 06:00 Tramadol HCl (Ultram) 50 mg Q6H PRN PO MODERATE PAIN LEVEL 4-6; Start 04/06/18 at 19:00 Atorvastatin Calcium (Lipitor) 10 mg DAILY@21 PO Last administered on 04/08/18 21:09; Admin Dose 10 MG; Start 04/07/18 at 21:00 Furosemide (Lasix) 40 mg DAILY PO Last administered on 04/09/18at 08:11; Admin Dose 40 MG; Start 04/08/18 at 09:00 Montelukast Sodium (Singulair) 10 mg HS PO Last administered on 04/08/18 21:09; Admin Dose 10 MG; Start 04/08/18 at 21:00 Sodium Chloride (Deep Sea) 2 spray Q4 PRN NASAL congestion; Start 04/08/18 at 10:00 Barium Sulfate (Readi-Cat 2 ( [employer] )) Adult and Pediatric formulatio... GIVE PRIOR TO CT ONCE PO ; Start 04/09/18 at 11:30; Stop 04/09/18 at 11:31; Status UNV Sucralfate (Carafate Susp) 1 gm QID PO ; Start 04/09/18 at 13:00; Status UNV Ciprofloxacin/ Dextrose 200 ml @ 200 mls/hr Q12 IVPB ; Start 04/09/18 at 21:00; Status UNV Metronidazole 100 ml @ 100 mls/hr Q8 IVPB ; Start 04/09/18 at 14:00; Status UNV Sodium Chloride 1,000 ml @ 30 mls/hr Q24H IV ; Start 04/09/18 at 11:30; Stop 04/10/18 at 20:49; Status UNV VTE Pro[place]axis [place] [facility] [place]: 4 [place] [facility] [place] No SCD contraindication: other Lines/Catheters IV Catheter Type: Robles in Place: No Assessment/Plan Hospital Course Subjective Patient still having nausea and vomiting when trying to eat food, also having diarrhea still, is able to tolerate some fluid intake though Objective Physical exam General: Patient is laying in bed and answers questions appropriately Mentation: Patient is alert and oriented 4, Head: Normocephalic atraumatic Eyes: EOMI, pupils reactive to light Neck: Supple, nontender, midline Respiratory: Clear to auscultation bilaterally Cardiovascular: regular rate, no obvious murmurs Gastrointestinal: non-tender to palpation, bowel sounds heard. Neurological: Moves all extremities spontaneously Skin: No new skin lesions Assessment/Plan 1. Acute gastroenteritis - still with vomiting and diarrhea - stool studies ordered - will provide supportive care - EGD from last admission reports gastritis and negative for H.pylori -Added Carafate, -Empiric Cipro Flagyl as symptoms have not improved at all -CT abdomen pelvis with oral contrast -Even though patient can tolerate water, very mild IV hydration due to can persistent diarrhea and vomiting 2. Diastolic HF - Lasix continued - BNP noted - CXR does not appear overloaded, but patient does admit to swelling in leg that are more than usual - Cardiology on board and appreciate recommendations 3. CKD - Patient states baseline Cr is 2.3. She was seen recently by her outpatient multiple sclerosis nurse, Dr Ward - Has been taking Naproxen and advised to discontinue - avoid nephrotoxic agents 4. Atrial fibrillation - rate controlled - continue Xarelto 5. Iron deficiency anemia - continue home PO supplements 6. hypothyroidism - continue replacement - TSH noted 7. Asthma - will try Singulair 8. Disposition - CT ab/pelvis pending MELANIE YOUNG Apr 09, 2018 11:32
[2018-04-09] MEDS ORDERED: BARIUM SULF 2% 450 ML BTL (BERRY SMOOTHIE) PO SCH (12:00)
[2018-04-09] MEDS: CIPROFLOXACIN 400MG/D5W 200 ML IVPB SCH ×2 (12:43→22:27)
[2018-04-09] MEDS: SUCRALFATE (100 MG/ML) 10ML CUP PO SCH ×3 (12:43→20:17)
[2018-04-09] MEDS: SOD CHLORIDE 0.9% 1,000 ML IV SCH (12:46)
[2018-04-09] MEDS: metroNIDAZOLE 500 MG/NS (PMX) 100 ML IVPB SCH ×2 (15:10→20:17)
[2018-04-09] MEDS: RIVAROXABAN 15 MG TABLET PO SCH (17:15)
[2018-04-09] MEDS: MONTELUKAST 10 MG TAB PO SCH (20:17)
[2018-04-09] MEDS: ATORVASTATIN 10 MG TAB PO SCH (20:17)
[2018-04-09] MEDS: GABAPENTIN 300 MG CAP PO SCH (20:17)
[2018-04-09] MEDS: CYCLOBENZAPRINE 10 MG TAB PO SCH (20:17)
[2018-04-09] MEDS: ZOLPIDEM 5 MG TAB PO PRN (22:27)
[2018-04-10] VITALS (13 sets, daily range): BP systolic 103–132; BP diastolic 62–77; PULSE 59–84; RESP 18–20
[2018-04-10] MEDS: metroNIDAZOLE 500 MG/NS (PMX) 100 ML IVPB SCH ×3 (06:04→21:52)
[2018-04-10] MEDS: PANTOPRAZOLE (EC) 40 MG TAB PO SCH ×2 (06:04→17:47)
[2018-04-10] MEDS: LEVOTHYROXINE 100 MCG TAB PO SCH (06:04)
[2018-04-10] MEDS: SUCRALFATE (100 MG/ML) 10ML CUP PO SCH ×4 (08:52→20:00)
[2018-04-10] MEDS: FUROSEMIDE 40 MG TAB PO SCH (08:53)
[2018-04-10] MEDS: AMIODARONE 200 MG TAB PO SCH (08:53)
[2018-04-10] MEDS: FERROUS SULFATE (EC) 325 MG TAB PO SCH ×2 (08:53→20:01)
[2018-04-10] MEDS: ATENOLOL 50 MG TAB PO SCH (08:53)
[2018-04-10] MEDS: CIPROFLOXACIN 400MG/D5W 200 ML IVPB SCH ×2 (08:54→20:01)
[2018-04-10] MEDS: SOD CHLORIDE 0.9% 1,000 ML IV SCH (10:35)
[2018-04-10] MEDS ORDERED: POTASSIUM CHLORIDE 20 MEQ POWDER FOR ORAL SOLN PO ONE (11:00)
--- NOTE | 2018-04-10 11:12 | PN ---
Date/Time of Note Date/Time of Note DATE: 04/10/18 TIME: 11:11 Objective Vitals Vital Signs Date Temp Pulse Resp B/P (MAP) Pulse Ox O2 O2 Flow FiO2 Time Delivery Rate 04/10/18 95 21 10:39 04/10/18 82 20 10:39 04/10/18 98.5 103/68 07:22 (80) 04/10/18 Room Air 06:01 04/06/18 2 13:38 Intake and Output 04/09/18 04/09/18 04/10/18 1515:00 23:00 07:00 IntakeIntake Total 200 ml 1430 ml 510 ml BalanceBalance 200 ml 1430 ml 510 ml Results Result Diagram: 04/10/1852704/10/18527 Medications Medications Current Medications Alprazolam (Xanax) 2 mg DAILY PRN PO ANXIETY; Start 04/06/18 at 17:30 Amiodarone HCl (Cordarone) 200 mg DAILY PO Last administered on 04/10/18at 08:5 3; Admin Dose 200 MG; Start 04/07/18 at 09:00 Atenolol (Tenormin) 50 mg DAILY PO Last administered on 04/10/18at 08:53; Admin Dose 50 MG; Start 04/07/18 at 09:00 Cyclobenzaprine HCl (Flexeril) 10 mg QHS PO Last administered on 04/09/18at 20:17; Admin Dose 10 MG; Start 04/06/18 at 22:00 Ferrous Sulfate (Ferrous Sulfate (Ec)) 325 mg BID PO Last administered on 04/10/18at 08:53; Admin Dose 325 MG; Start 04/06/18 at 21:00 Levothyroxine Sodium (Synthroid) 100 mcg BEFORE BREAKFAST PO Last administered on 04/10/18at 06:04; Admin Dose 100 MCG; Start 04/07/18 at 07:00 Albuterol (Proventil 0.083% (Neb)) 2.5 mg Q2H RESP THERAPY PRN HHN SHORTNESS OF BREATH Last administered on 04/10/18at 10:41; Admin Dose 2.5 MG; Start 04/06/18 at 17:30 IV Flush (NS 3 ml) 3 ml PER PROTOCOL IV ; Start 04/06/18 at 17:30 Ondansetron HCl (Zofran Inj) 4 mg Q6H PRN IV NAUSEA/VOMITING Last administered on 04/09/18 13:00; Admin Dose 4 MG; Start 04/06/18 at 17:30 Nitroglycerin (Nitroglycerin (Sl Tab) 0.4 Mg) 1 tab Q5M PRN SL .CHEST PAIN; Start 04/06/18 at 17:30 Acetaminophen (Tylenol Tab) 650 mg Q6H PRN PO .PAIN 1-3 OR TEMP; Start 04/06/18 at 17:30 Morphine Sulfate (morphine) 2 mg Q4H PRN IV .PAIN 7-10; Start 04/06/18 at 17:30 Docusate Sodium (Colace) 100 mg Q12H PRN PO .CONSTIPATION; Start 04/06/18 at 17:30 Magnesium Hydroxide (Milk Of Mag) 30 ml DAILY PRN PO .CONSTIPATION; Start 04/06/18 at 17:30 Rivaroxaban (Xarelto) 15 mg WITH DINNER PO Last administered on 04/09/18at 17:15; Admin Dose 15 MG; Start 04/07/18 at 18:00 Gabapentin (Neurontin) 300 mg QHS PO Last administered on 04/09/18 20:17; Admin Dose 300 MG; Start 04/06/18 at 21:00 Pantoprazole (Protonix Tab) 40 mg BID@06,18 PO Last administered on 04/10/18 06:04; Admin Dose 40 MG; Start 04/07/18 at 06:00 Tramadol HCl (Ultram) 50 mg Q6H PRN PO MODERATE PAIN LEVEL 4-6; Start 04/06/18 at 19:00 Atorvastatin Calcium (Lipitor) 10 mg DAILY@21 PO Last administered on 04/09/18 20:17; Admin Dose 10 MG; Start 04/07/18 at 21:00 Furosemide (Lasix) 40 mg DAILY PO Last administered on 04/10/18at 08:53; Admin Dose 40 MG; Start 04/08/18 at 09:00 Montelukast Sodium (Singulair) 10 mg HS PO Last administered on 04/09/18 20:17; Admin Dose 10 MG; Start 04/08/18 at 21:00 Sodium Chloride (Deep Sea) 2 spray Q4 PRN NASAL congestion; Start 04/08/18 at 10:00 Sucralfate (Carafate Susp) 1 gm QID PO Last administered on 04/10/18 08:52; Admin Dose 1 GM; Start 04/09/18 at 13:00 Ciprofloxacin/ Dextrose 200 ml @ 200 mls/hr Q12 IVPB Last administered on 04/10/18 08:54; Admin Dose 200 MLS/HR; Start 04/09/18 at 12:00 Metronidazole 100 ml @ 100 mls/hr Q8 IVPB Last administered on 04/10/18at 06:04; Admin Dose 100 MLS/HR; Start 04/09/18 at 14:00 Sodium Chloride 1,000 ml @ 30 mls/hr Q24H IV Last administered on 04/09/18 12:46; Admin Dose 30 MLS/HR; Start 04/09/18 at 11:30; Stop 04/10/18 at 20:49 Zolpidem Tartrate (Ambien) 10 mg HS PRN PO INSOMNIA Last administered on 04/09/18 22:27; Admin Dose 10 MG; Start 04/09/18 at 12:00 VTE Prophylaxis Risk score (from [facility] [place] risk: 4 SCD applied (from [facility] [place] No SCD contraindication: other Lines/Catheters IV Catheter Type: Robles in Place: No Assessment/Plan Hospital Course Subjective Patient still having nausea and vomiting when trying to eat food, also having diarrhea still, is able to tolerate some fluid intake though Objective Physical exam General: Patient is laying in bed and answers questions appropriately Mentation: Patient is alert and oriented 4, Head: Normocephalic atraumatic Eyes: EOMI, pupils reactive to light Neck: Supple, nontender, midline Respiratory: Clear to auscultation bilaterally Cardiovascular: regular rate, no obvious murmurs Gastrointestinal: non-tender to palpation, bowel sounds heard. Neurological: Moves all extremities spontaneously Skin: No new skin lesions Assessment/Plan 1. Acute gastroenteritis - still with vomiting and diarrhea - stool studies ordered - will provide supportive care - EGD from last admission reports gastritis and negative for H.pylori -Added Carafate, -Empiric Cipro Flagyl as symptoms have not improved at all -CT abdomen pelvis with oral contrast, showing possible constriction from lap band. -Even though patient can tolerate water, very mild IV hydration due to can persistent diarrhea and vomiting 2. Diastolic HF - Lasix continued - BNP noted - CXR does not appear overloaded, but patient does admit to swelling in leg that are more than usual - Cardiology on board and appreciate recommendations 3. CKD - Patient states baseline Cr is 2.3. She was seen recently by her outpatient heavy equipment plumbing supervisor, Dr Ward - Has been taking Naproxen and advised to discontinue - avoid nephrotoxic agents 4. Atrial fibrillation - rate controlled - continue Xarelto 5. Iron deficiency anemia - continue home PO supplements 6. hypothyroidism - continue replacement - TSH noted 7. Asthma - will try Singulair 8. Disposition - Dr Mathews consulted for possible lap band constriction. Patient's surgeon does not go to this hospital. MELANIE YOUNG Apr 10, 2018 11:12
--- NOTE | 2018-04-10 13:16 | CONS ---
Assessment/Plan Assessment/Plan Hospital Course (Demo Recall) 1. Abdominal pain, nausea, vomiting diarrhea: concern for lap band slippage per CT: On review lap band appears to be in appropriate position however, may be too tight. Discussed with patient and will deflate the band completely. -deflate band tomorrow -eventual f/u w primary sx team -supportive tx -med mgt for +stool studies 2. CHF hx: -cards optimization 3. CKD: -judicious fluids -limit nephrotoxic meds 4. Morbid obesity: bmi 44 -diet and exercise optimization -encourage weight loss -f/u w primary sx team for further surgical options for wt loss (conversion to sleeve, etc.) 5.Hypochromic anemia: -monitor -transfuse as needed 6. Afib: controlled -rate conrol -anticoags 7. Hypothryoidism& asthma hx: -med mgt Thank you. Patient seen and examined in collaboration with Dr. Raudel Mathews. Consultation Date/Type/Reason Admit Date/Time Apr 06, 2018 at 17:10 Date of Consultation: Apr 10, 2018 Type of Consult surgical Reason for Consultation n/v/abdominal pain, lap band Requesting Provider: MELANIE YOUNG Date/Time of Note DATE: 04/10/18 TIME: 12:55 Hx of Present Illness Dawna caruso is a 62 yo woman with pmh of congestive heart failure, hypothyroid, renal disease, other (atrial fibrillation), H. pylori infection, morbid obesity s/p lap band x2, who presented with multiple days of nausea and vomiting. Associated symptoms include lower abdominal pain, diarrhea, palpitations and chest discomfort. She denies fevers, labored breathing, current chest pain, sz, rash or skin changes. She is currently being treated for gastroenteritis, on abx theray. CT abdomen shows a gastric band noted with the phi angle at approxi mately 73 degrees suspicious for a slippage. The visualized distal esophagus is even more dilated than seen previously and there appears to be edema and narrowing of the lumen within the stomach at the level of the band raising the possibility of over constriction. Gen surgery was asked to evaluate. 12 point ros was reviewed and is negative except as stated in hpi. Past Medical History Medical History: congestive heart failure, hypothyroid, renal disease, other (atrial fibrillation) Home Meds Active Scripts Omeprazole* (Omeprazole*) 20 Mg Capsule.dr, 20 MG PO BID, #60 CAP 2 Refills Prov:MELANIE YOUNG 07/18/17 Ferrous Sulfate* (Ferrous Sulfate*) 325 Mg Tabec, 325 MG PO BID, #60 TAB 2 Refills Prov:MELANIE YOUNG 07/18/17 Albuterol Sulfate* (Proair HFA*) 8.5 Gm Hfa.aer.ad, 2 PUFF INH Q4, #1 INHALER Prov:CHIP JIMENEZ MD 05/08/17 Reported Medications Atenolol* (Atenolol*) 50 Mg Tablet, 50 MG PO DAILY, #30 TAB 04/06/18 Alprazolam* (Xanax*) 2 Mg Tablet, 2 MG PO DAILY PRN for ANXIETY, TAB 03/15/17 Gabapentin* (Gabapentin*) 300 Mg Capsule, 300 MG PO TID, #90 CAP 03/15/17 Simvastatin* (Zocor*) 20 Mg Tablet, 20 MG PO QHS, #30 TAB 03/15/17 Furosemide* (Furosemide*) 20 Mg Tablet, 20 MG PO DAILY, #60 TAB 03/15/17 Levothyroxine Sodium* (Levothyroxine Sodium*) 100 Mcg Tablet, 100 MCG PO BEFORE BREAKFAST, #30 TAB 03/15/17 Cyclobenzaprine Hcl* (Cyclobenzaprine Hcl*) 10 Mg Tablet, 10 MG PO QHS, #60 TAB 03/15/17 Allopurinol* (Allopurinol*) 300 Mg Tablet, 300 MG PO DAILY, TAB 03/15/17 Ergocalciferol (Vitamin D2) (VITAMIN D2) 50,000 Unit Capsule, 93434 UNIT PO Q7D, CAP 03/15/17 Potassium Chloride (Klor-Con) 10 Meq Tablet.sa, 10 MEQ PO DAILY, TAB.SA 03/15/17 Amiodarone Hcl* (Amiodarone Hcl*) 200 Mg Tablet, 200 MG PO DAILY, #30 TAB 03/15/17 Discontinued Scripts Cyclobenzaprine Hcl* (Cyclobenzaprine Hcl*) 10 Mg Tablet, 10 MG PO TID, #15 TAB Prov:CHIP JIMENEZ MD 01/22/18 Atenolol* (Atenolol*) 50 Mg Tablet, 25 MG PO DAILY, #30 TAB Prov:MELANIE YOUNG 07/18/17 Medications Current Medications Alprazolam (Xanax) 2 mg DAILY PRN PO ANXIETY; Start 04/06/18 at 17:30 Amiodarone HCl (Cordarone) 200 mg DAILY PO Last administered on 04/10/18 08:53; Admin Dose 200 MG; Start 04/07/18 at 09:00 Atenolol (Tenormin) 50 mg DAILY PO Last administered on 04/10/18 08:53; Admin Dose 50 MG; Start 04/07/18 at 09:00 Cyclobenzaprine HCl (Flexeril) 10 mg QHS PO Last administered on 04/09/18 20:17; Admin Dose 10 MG; Start 04/06/18 at 22:00 Ferrous Sulfate (Ferrous Sulfate (Ec)) 325 mg BID PO Last administered on 04/10/18 08:53; Admin Dose 325 MG; Start 04/06/18 at 21:00 Levothyroxine Sodium (Synthroid) 100 mcg BEFORE BREAKFAST PO Last administered on 04/10/18 06:04; Admin Dose 100 MCG; Start 04/07/18 at 07:00 Albuterol (Proventil 0.083% (Neb)) 2.5 mg Q2H RESP THERAPY PRN HHN SHORTNESS OF BREATH Last administered on 04/10/18at 10:41; Admin Dose 2.5 MG; Start 04/06/18 at 17:30 IV Flush (NS 3 ml) 3 ml PER PROTOCOL IV ; Start 04/06/18 at 17:30 Ondansetron HCl (Zofran Inj) 4 mg Q6H PRN IV NAUSEA/VOMITING Last administered on 04/09/18at 13:00; Admin Dose 4 MG; Start 04/06/18 at 17:30 Nitroglycerin (Nitroglycerin (Sl Tab) 0.4 Mg) 1 tab Q5M PRN SL .CHEST PAIN; Start 04/06/18 at 17:30 Acetaminophen (Tylenol Tab) 650 mg Q6H PRN PO .PAIN 1-3 OR TEMP; Start 04/06/18 at 17:30 Morphine Sulfate (morphine) 2 mg Q4H PRN IV .PAIN 7-10; Start 04/06/18 at 17:30 Docusate Sodium (Colace) 100 mg Q12H PRN PO .CONSTIPATION; Start 04/06/18 at 17:30 Magnesium Hydroxide (Milk Of Mag) 30 ml DAILY PRN PO .CONSTIPATION; Start 04/06/18 at 17:30 Rivaroxaban (Xarelto) 15 mg WITH DINNER PO Last administered on 04/09/18 17:15; Admin Dose 15 MG; Start 04/07/18 at 18:00 Gabapentin (Neurontin) 300 mg QHS PO Last administered on 04/09/18 20:17; Admin Dose 300 MG; Start 04/06/18 at 21:00 Pantoprazole (Protonix Tab) 40 mg BID@06,18 PO Last administered on 04/10/18 06:04; Admin Dose 40 MG; Start 04/07/18 at 06:00 Tramadol HCl (Ultram) 50 mg Q6H PRN PO MODERATE PAIN LEVEL 4-6; Start 04/06/18 at 19:00 Atorvastatin Calcium (Lipitor) 10 mg DAILY@21 PO Last administered on 04/09/18 20:17; Admin Dose 10 MG; Start 04/07/18 at 21:00 Furosemide (Lasix) 40 mg DAILY PO Last administered on 04/10/18 08:53; Admin Dose 40 MG; Start 04/08/18 at 09:00 Montelukast Sodium (Singulair) 10 mg HS PO Last administered on 04/09/18 20:17; Admin Dose 10 MG; Start 04/08/18 at 21:00 Sodium Chloride (Deep Sea) 2 spray Q4 PRN NASAL congestion; Start 04/08/18 at 10:00 Sucralfate (Carafate Susp) 1 gm QID PO Last administered on 04/10/18 12:42; Admin Dose 1 GM; Start 04/09/18 at 13:00 Ciprofloxacin/ Dextrose 200 ml @ 200 mls/hr Q12 IVPB Last administered on 04/10/18 08:54; Admin Dose 200 MLS/HR; Start 04/09/18 at 12:00 Metronidazole 100 ml @ 100 mls/hr Q8 IVPB Last administered on 04/10/18 06:04; Admin Dose 100 MLS/HR; Start 04/09/18 at 14:00 Sodium Chloride 1,000 ml @ 30 mls/hr Q24H IV Last administered on 04/09/18 12:46; Admin Dose 30 MLS/HR; Start 04/09/18 at 11:30; Stop 04/10/18 at 20:49 Zolpidem Tartrate (Ambien) 10 mg HS PRN PO INSOMNIA Last administered on 04/09/18at 22:27; Admin Dose 10 MG; Start 04/09/18 at 12:00 Allergies: Coded Allergies: aspirin (Unverified Allergy, Mild, INTOLERANCE, 04/06/18) enalaprilat (Unverified Allergy, Mild, COUGHING, 04/06/18) Past Surgical History as above Past Surgical Hx: other Family History Significant Family History: no pertinent family hx Social History Alcohol Use: none Smoking Status: Former smoker Drug Use: none Exam/Review of Systems Exam Vitals Vital Signs Date Temp Pulse Resp B/P (MAP) Pulse Ox O2 O2 Flow FiO2 Time Delivery Rate 04/10/18 80 12:48 04/10/18 98.0 18 108/62 99 12:42 (77) 04/10/18 21 10:39 04/10/18 Room Air 06:01 04/06/18 2 13:38 Intake and Output 04/09/18 04/09/18 04/10/18 1515:00 23:00 07:00 IntakeIntake Total 200 ml 1430 ml 510 ml BalanceBalance 200 ml 1430 ml 510 ml Constitutional: alert, oriented, obese Psych: nl mood/affect; No anxiety Head: normocephalic, atraumatic Eyes: nl conjunctiva, EOMI, nl lids, nl sclera ENMT: nl external ears & nose, nl lips & teeth, mucosa pink and moist Neck: supple, non-tender; No jvd, No masses Respiratory: normal air movement; No congested cough, No labored breathing Cardiovascular: regular rate and rhythm, nl pulses Gastrointestinal: soft, non-tender, tender (min: infraumbilical,), other ( left lower quad lap band port) Genitourinary - Female: nl external genitalia Musculoskeletal: nl extremities to inspection, nl gait and stance Extremities: normal pulses Neurological: nl mental status, nl speech, nl strength Skin: No rash or lesions Lymph: nl lymph nodes Results Result Diagram: 04/10/1852704/10/18527 Results 24hrs Laboratory Tests Test 04/10/18 05:28 White Blood Count 5.6 Red Blood Count 3.71 L Hemoglobin 10.3 L Hematocrit 34.1 L Mean Corpuscular Volume 91.9 Mean Corpuscular Hemoglobin 27.8 L Mean Corpuscular Hemoglobin Concent 30.2 L Red Cell Distribution Width 18.6 H Platelet Count 168 Mean Platelet Volume 10.0 Immature Granulocytes % 0.400 Neutrophils % 74.6 Lymphocytes % 12.3 L Monocytes % 6.8 Eosinophils % 5.4 Basophils % 0.5 Nucleated Red Blood Cells % 0.5 H Immature Granulocytes # 0.020 Neutrophils # 4.2 Lymphocytes # 0.7 L Monocytes # 0.4 Eosinophils # 0.3 Basophils # 0.0 Nucleated Red Blood Cells # 0.0 Sodium Level 143 Potassium Level 3.2 L Chloride Level 101 Carbon Dioxide Level 33 H Anion Gap 9 Blood Urea Nitrogen 17 Creatinine 1.91 H Est Glomerular Filtrat Rate mL/min 32 L Glucose Level 115 Calcium Level 8.8 Phosphorus Level 3.4 Magnesium Level 2.0 Medications Medication Current Medications Alprazolam (Xanax) 2 mg DAILY PRN PO ANXIETY; Start 04/06/18 at 17:30 Amiodarone HCl (Cordarone) 200 mg DAILY PO Last administered on 04/10/18 08:53; Admin Dose 200 MG; Start 04/07/18 at 09:00 Atenolol (Tenormin) 50 mg DAILY PO Last administered on 04/10/18 08:53; Admin Dose 50 MG; Start 04/07/18 at 09:00 Cyclobenzaprine HCl (Flexeril) 10 mg QHS PO Last administered on 04/09/18 20:17; Admin Dose 10 MG; Start 04/06/18 at 22:00 Ferrous Sulfate (Ferrous Sulfate (Ec)) 325 mg BID PO Last administered on 04/10/18 08:53; Admin Dose 325 MG; Start 04/06/18 at 21:00 Levothyroxine Sodium (Synthroid) 100 mcg BEFORE BREAKFAST PO Last administered on 04/10/18 06:04; Admin Dose 100 MCG; Start 04/07/18 at 07:00 Albuterol (Proventil 0.083% (Neb)) 2.5 mg Q2H RESP THERAPY PRN HHN SHORTNESS OF BREATH Last administered on 04/10/18at 10:41; Admin Dose 2.5 MG; Start 04/06/18 at 17:30 IV Flush (NS 3 ml) 3 ml PER PROTOCOL IV ; Start 04/06/18 at 17:30 Ondansetron HCl (Zofran Inj) 4 mg Q6H PRN IV NAUSEA/VOMITING Last administered on 04/09/18 13:00; Admin Dose 4 MG; Start 04/06/18 at 17:30 Nitroglycerin (Nitroglycerin (Sl Tab) 0.4 Mg) 1 tab Q5M PRN SL .CHEST PAIN; Start 04/06/18 at 17:30 Acetaminophen (Tylenol Tab) 650 mg Q6H PRN PO .PAIN 1-3 OR TEMP; Start 04/06/18 at 17:30 Morphine Sulfate (morphine) 2 mg Q4H PRN IV .PAIN 7-10; Start 04/06/18 at 17:30 Docusate Sodium (Colace) 100 mg Q12H PRN PO .CONSTIPATION; Start 04/06/18 at 17:30 Magnesium Hydroxide (Milk Of Mag) 30 ml DAILY PRN PO .CONSTIPATION; Start 04/06/18 at 17:30 Rivaroxaban (Xarelto) 15 mg WITH DINNER PO Last administered on 04/09/18 17:15; Admin Dose 15 MG; Start 04/07/18 at 18:00 Gabapentin (Neurontin) 300 mg QHS PO Last administered on 04/09/18 20:17; Admin Dose 300 MG; Start 04/06/18 at 21:00 Pantoprazole (Protonix Tab) 40 mg BID@06,18 PO Last administered on 04/10/18 06:04; Admin Dose 40 MG; Start 04/07/18 at 06:00 Tramadol HCl (Ultram) 50 mg Q6H PRN PO MODERATE PAIN LEVEL 4-6; Start 04/06/18 at 19:00 Atorvastatin Calcium (Lipitor) 10 mg DAILY@21 PO Last administered on 04/09/18 20:17; Admin Dose 10 MG; Start 04/07/18 at 21:00 Furosemide (Lasix) 40 mg DAILY PO Last administered on 04/10/18 08:53; Admin Dose 40 MG; Start 04/08/18 at 09:00 Montelukast Sodium (Singulair) 10 mg HS PO Last administered on 04/09/18 20:17; Admin Dose 10 MG; Start 04/08/18 at 21:00 Sodium Chloride (Deep Sea) 2 spray Q4 PRN NASAL congestion; Start 04/08/18 at 10:00 Sucralfate (Carafate Susp) 1 gm QID PO Last administered on 04/10/18at 12:42; Admin Dose 1 GM; Start 04/09/18 at 13:00 Ciprofloxacin/ Dextrose 200 ml @ 200 mls/hr Q12 IVPB Last administered on 04/10/18 08:54; Admin Dose 200 MLS/HR; Start 04/09/18 at 12:00 Metronidazole 100 ml @ 100 mls/hr Q8 IVPB Last administered on 04/10/18 06:04; Admin Dose 100 MLS/HR; Start 04/09/18 at 14:00 Sodium Chloride 1,000 ml @ 30 mls/hr Q24H IV Last administered on 04/09/18at 12:46; Admin Dose 30 MLS/HR; Start 04/09/18 at 11:30; Stop 04/10/18 at 20:49 Zolpidem Tartrate (Ambien) 10 mg HS PRN PO INSOMNIA Last administered on 04/09/18at 22:27; Admin Dose 10 MG; Start 04/09/18 at 12:00 ERENDIRA DEVLIN NP Apr 10, 2018 13:07
--- NOTE | 2018-04-10 16:10 | CONS ---
Assessment/Plan Cardiology Heart Failure Type: Chronic Heart Failure Type: Diastolic Assessment/Plan Hospital Course (Demo Recall) Chronic diastolic congestive heart failure, appears well compensated Gastroenteritis Preserved ejection fraction Paroxysmal atrial fibrillation History of pacemaker Hypertension Acute kidney injury with history of CKD -Patient denies symptoms of shortness of breath or increased lower extremity edema -Continue maintenance diuretics as tolerated -Continue rate control and anticoagulation as tolerated -Potassium supplementation is already been ordered Consultation Date/Type/Reason Admit Date/Time Apr 06, 2018 at 17:10 Initial Consult Date 04/10/18 Type of Consult Cardiology Requesting Provider: MELANIE YOUNG Date/Time of Note DATE: 04/10/18 TIME: 16:08 24 HR Interval Summary Free Text/Dictation No shortness of breath, palpitations, chest pain Exam/Review of Systems Vital Signs Vitals Vital Signs Date Temp Pulse Resp B/P (MAP) Pulse Ox O2 O2 Flow FiO2 Time Delivery Rate 04/10/18 80 12:48 04/10/18 98.0 18 108/62 99 12:42 (77) 04/10/18 21 10:39 04/10/18 Room Air 06:01 04/06/18 2 13:38 Intake and Output 04/09/18 04/09/18 04/10/18 1515:00 23:00 07:00 IntakeIntake Total 200 ml 1430 ml 510 ml BalanceBalance 200 ml 1430 ml 510 ml Exam Constitutional: alert, oriented (No apparent distress, no dyspnea with speaking, obesity) Respiratory: other (Coarse breath sounds bilaterally, no wheezing) Cardiovascular: regular rate and rhythm (S1-S2 heard) Gastrointestinal: soft, non-tender, bowel sounds Extremities: edema Labs Result Diagram: 04/10/1852704/10/1828 Results 24hrs Laboratory Tests Test 04/10/18 05:28 White Blood Count 5.6 Red Blood Count 3.71 L Hemoglobin 10.3 L Hematocrit 34.1 L Mean Corpuscular Volume 91.9 Mean Corpuscular Hemoglobin 27.8 L Mean Corpuscular Hemoglobin Concent 30.2 L Red Cell Distribution Width 18.6 H Platelet Count 168 Mean Platelet Volume 10.0 Immature Granulocytes % 0.400 Neutrophils % 74.6 Lymphocytes % 12.3 L Monocytes % 6.8 Eosinophils % 5.4 Basophils % 0.5 Nucleated Red Blood Cells % 0.5 H Immature Granulocytes # 0.020 Neutrophils # 4.2 Lymphocytes # 0.7 L Monocytes # 0.4 Eosinophils # 0.3 Basophils # 0.0 Nucleated Red Blood Cells # 0.0 Sodium Level 143 Potassium Level 3.2 L Chloride Level 101 Carbon Dioxide Level 33 H Anion Gap 9 Blood Urea Nitrogen 17 Creatinine 1.91 H Est Glomerular Filtrat Rate mL/min 32 L Glucose Level 115 Calcium Level 8.8 Phosphorus Level 3.4 Magnesium Level 2.0 Medications Medications Current Medications Alprazolam (Xanax) 2 mg DAILY PRN PO ANXIETY; Start 04/06/18 at 17:30 Amiodarone HCl (Cordarone) 200 mg DAILY PO Last administered on 04/10/18 08:53; Admin Dose 200 MG; Start 04/07/18 at 09:00 Atenolol (Tenormin) 50 mg DAILY PO Last administered on 04/10/18 08:53; Admin Dose 50 MG; Start 04/07/18 at 09:00 Cyclobenzaprine HCl (Flexeril) 10 mg QHS PO Last administered on 04/09/18 20:17; Admin Dose 10 MG; Start 04/06/18 at 22:00 Ferrous Sulfate (Ferrous Sulfate (Ec)) 325 mg BID PO Last administered on 08:53; Admin Dose 325 MG; Start 04/06/18 at 21:00 Levothyroxine Sodium (Synthroid) 100 mcg BEFORE BREAKFAST PO Last administered on 04/10/18 06:04; Admin Dose 100 MCG; Start 04/07/18 at 07:00 Albuterol (Proventil 0.083% (Neb)) 2.5 mg Q2H RESP THERAPY PRN HHN SHORTNESS OF BREATH Last administered on 04/10/18 10:41; Admin Dose 2.5 MG; Start 04/06/18 at 17:30 IV Flush (NS 3 ml) 3 ml PER PROTOCOL IV ; Start 04/06/18 at 17:30 Ondansetron HCl (Zofran Inj) 4 mg Q6H PRN IV NAUSEA/VOMITING Last administered on 04/09/18 13:00; Admin Dose 4 MG; Start 04/06/18 at 17:30 Nitroglycerin (Nitroglycerin (Sl Tab) 0.4 Mg) 1 tab Q5M PRN SL .CHEST PAIN; Start 04/06/18 at 17:30 Acetaminophen (Tylenol Tab) 650 mg Q6H PRN PO .PAIN 1-3 OR TEMP; Start 04/06/18 at 17:30 Morphine Sulfate (morphine) 2 mg Q4H PRN IV .PAIN 7-10; Start 04/06/18 at 17:30 Docusate Sodium (Colace) 100 mg Q12H PRN PO .CONSTIPATION; Start 04/06/18 at 17:30 Magnesium Hydroxide (Milk Of Mag) 30 ml DAILY PRN PO .CONSTIPATION; Start 04/06/18 at 17:30 Rivaroxaban (Xarelto) 15 mg WITH DINNER PO Last administered on 04/09/18 17:15; Admin Dose 15 MG; Start 04/07/18 at 18:00 Gabapentin (Neurontin) 300 mg QHS PO Last administered on 04/09/18 20:17; Admin Dose 300 MG; Start 04/06/18 at 21:00 Pantoprazole (Protonix Tab) 40 mg BID@06,18 PO Last administered on 04/10/18 06:04; Admin Dose 40 MG; Start 04/07/18 at 06:00 Tramadol HCl (Ultram) 50 mg Q6H PRN PO MODERATE PAIN LEVEL 4-6; Start 04/06/18 at 19:00 Atorvastatin Calcium (Lipitor) 10 mg DAILY@21 PO Last administered on 04/09/18 20:17; Admin Dose 10 MG; Start 04/07/18 at 21:00 Furosemide (Lasix) 40 mg DAILY PO Last administered on 04/10/18 08:53; Admin Dose 40 MG; Start 04/08/18 at 09:00 Montelukast Sodium (Singulair) 10 mg HS PO Last administered on 04/09/18 20:17; Admin Dose 10 MG; Start 04/08/18 at 21:00 Sodium Chloride (Deep Sea) 2 spray Q4 PRN NASAL congestion; Start 04/08/18 at 10:00 Sucralfate (Carafate Susp) 1 gm QID PO Last administered on 04/10/18 12:42; Admin Dose 1 GM; Start 04/09/18 at 13:00 Ciprofloxacin/ Dextrose 200 ml @ 200 mls/hr Q12 IVPB Last administered on 04/10/18 08:54; Admin Dose 200 MLS/HR; Start 04/09/18 at 12:00 Metronidazole 100 ml @ 100 mls/hr Q8 IVPB Last administered on 04/10/18at 14:24; Admin Dose 100 MLS/HR; Start 04/09/18 at 14:00 Sodium Chloride 1,000 ml @ 30 mls/hr Q24H IV Last administered on 04/09/18at 12:46; Admin Dose 30 MLS/HR; Start 04/09/18 at 11:30; Stop 04/10/18 at 20:49 Zolpidem Tartrate (Ambien) 10 mg HS PRN PO INSOMNIA Last administered on 04/09/18at 22:27; Admin Dose 10 MG; Start 04/09/18 at 12:00 Madi Lewis DO Apr 10, 2018 16:10
[2018-04-10] MEDS: RIVAROXABAN 15 MG TABLET PO SCH (17:47)
[2018-04-10] MEDS: GABAPENTIN 300 MG CAP PO SCH (20:00)
[2018-04-10] MEDS: CYCLOBENZAPRINE 10 MG TAB PO SCH (20:00)
[2018-04-10] MEDS: ATORVASTATIN 10 MG TAB PO SCH (20:01)
[2018-04-10] MEDS: MONTELUKAST 10 MG TAB PO SCH (20:01)
[2018-04-10] MEDS: ZOLPIDEM 5 MG TAB PO PRN (20:06)
[2018-04-11] VITALS (11 sets, daily range): BP systolic 120–142; BP diastolic 63–77; PULSE 70–85; RESP 18–20
[2018-04-11] MEDS: metroNIDAZOLE 500 MG/NS (PMX) 100 ML IVPB SCH ×3 (06:16→21:16)
[2018-04-11] MEDS: PANTOPRAZOLE (EC) 40 MG TAB PO SCH ×2 (06:17→17:45)
[2018-04-11] MEDS: LEVOTHYROXINE 100 MCG TAB PO SCH (06:17)
[2018-04-11] MEDS ORDERED: LIDOCAINE 1%/EPI (1:100,000) (MDV) 20 ML INJ SCH (08:00)
[2018-04-11] MEDS ORDERED: LIDOCAINE 1%/EPI 30 ML INJ INJ ONE (08:00)
[2018-04-11] MEDS: SUCRALFATE (100 MG/ML) 10ML CUP PO SCH ×4 (08:34→20:18)
[2018-04-11] MEDS: ATENOLOL 50 MG TAB PO SCH (08:34)
[2018-04-11] MEDS: FERROUS SULFATE (EC) 325 MG TAB PO SCH ×2 (08:34→20:18)
[2018-04-11] MEDS: AMIODARONE 200 MG TAB PO SCH (08:34)
[2018-04-11] MEDS: FUROSEMIDE 40 MG TAB PO SCH (08:34)
[2018-04-11] MEDS: CIPROFLOXACIN 400MG/D5W 200 ML IVPB SCH ×2 (08:37→20:18)
--- NOTE | 2018-04-11 11:27 | PN ---
Date/Time of Note Date/Time of Note DATE: 04/11/18 TIME: 11:26 Objective Vitals Vital Signs Date Temp Pulse Resp B/P (MAP) Pulse Ox O2 O2 Flow FiO2 Time Delivery Rate 04/11/18 98.2 83 19 132/63 95 11:16 (86) 04/10/18 21 10:39 04/10/18 Room Air 06:01 Intake and Output 04/10/18 04/10/18 04/11/18 1515:00 23:00 07:00 IntakeIntake Total 200 ml 850 ml BalanceBalance 200 ml 850 ml Results Result Diagram: 04/11/1852804/11/18528 Medications Medications Current Medications Alprazolam (Xanax) 2 mg DAILY PRN PO ANXIETY; Start 04/06/18 at 17:30 Amiodarone HCl (Cordarone) 200 mg DAILY PO Last administered on 04/11/18 08:34; Admin Dose 200 MG; Start 04/07/18 at 09:00 Atenolol (Tenormin) 50 mg DAILY PO Last administered on 04/11/18 08:34; Admin Dose 50 MG; Start 04/07/18 at 09:00 Cyclobenzaprine HCl (Flexeril) 10 mg QHS PO Last administered on 04/10/18 20:00; Admin Dose 10 MG; Start 04/06/18 at 22:00 Ferrous Sulfate (Ferrous Sulfate (Ec)) 325 mg BID PO Last administered on 08:34; Admin Dose 325 MG; Start 04/06/18 at 21:00 Levothyroxine Sodium (Synthroid) 100 mcg BEFORE BREAKFAST PO Last administered on 04/11/18 06:17; Admin Dose 100 MCG; Start 04/07/18 at 07:00 Albuterol (Proventil 0.083% (Neb)) 2.5 mg Q2H RESP THERAPY PRN HHN SHORTNESS OF BREATH Last administered on 04/10/18at 10:41; Admin Dose 2.5 MG; Start 04/06/18 at 17:30 IV Flush (NS 3 ml) 3 ml PER PROTOCOL IV ; Start 04/06/18 at 17:30 Ondansetron HCl (Zofran Inj) 4 mg Q6H PRN IV NAUSEA/VOMITING Last administered on 04/09/18 13:00; Admin Dose 4 MG; Start 04/06/18 at 17:30 Nitroglycerin (Nitroglycerin (Sl Tab) 0.4 Mg) 1 tab Q5M PRN SL .CHEST PAIN; Start 04/06/18 at 17:30 Acetaminophen (Tylenol Tab) 650 mg Q6H PRN PO .PAIN 1-3 OR TEMP; Start 04/06/18 at 17:30 Morphine Sulfate (morphine) 2 mg Q4H PRN IV .PAIN 7-10; Start 04/06/18 at 17:30 Docusate Sodium (Colace) 100 mg Q12H PRN PO .CONSTIPATION; Start 04/06/18 at 17:30 Magnesium Hydroxide (Milk Of Mag) 30 ml DAILY PRN PO .CONSTIPATION; Start 04/06/18 at 17:30 Rivaroxaban (Xarelto) 15 mg WITH DINNER PO Last administered on 04/10/18at 17:47; Admin Dose 15 MG; Start 04/07/18 at 18:00 Gabapentin (Neurontin) 300 mg QHS PO Last administered on 04/10/18 20:00; Admin Dose 300 MG; Start 04/06/18 at 21:00 Pantoprazole (Protonix Tab) 40 mg BID@06,18 PO Last administered on 04/11/18 06:17; Admin Dose 40 MG; Start 04/07/18 at 06:00 Tramadol HCl (Ultram) 50 mg Q6H PRN PO MODERATE PAIN LEVEL 4-6; Start 04/06/18 at 19:00 Atorvastatin Calcium (Lipitor) 10 mg DAILY@21 PO Last administered on 04/10/18 20:01; Admin Dose 10 MG; Start 04/07/18 at 21:00 Furosemide (Lasix) 40 mg DAILY PO Last administered on 04/11/18 08:34; Admin D ose 40 MG; Start 04/08/18 at 09:00 Montelukast Sodium (Singulair) 10 mg HS PO Last administered on 04/10/18 20:01; Admin Dose 10 MG; Start 04/08/18 at 21:00 Sodium Chloride (Deep Sea) 2 spray Q4 PRN NASAL congestion; Start 04/08/18 at 10:00 Sucralfate (Carafate Susp) 1 gm QID PO Last administered on 2/27/19at 08:34; Admin Dose 1 GM; Start 04/09/18 at 13:00 Ciprofloxacin/ Dextrose 200 ml @ 200 mls/hr Q12 IVPB Last administered on 04/11/18at 08:37; Admin Dose 200 MLS/HR; Start 04/09/18 at 12:00 Metronidazole 100 ml @ 100 mls/hr Q8 IVPB Last administered on 04/11/18at 06:16; Admin Dose 100 MLS/HR; Start 04/09/18 at 14:00 Zolpidem Tartrate (Ambien) 10 mg HS PRN PO INSOMNIA Last administered on 04/10/18at 20:06; Admin Dose 10 MG; Start 04/09/18 at 12:00 Lidocaine/ Epinephrine (Xylocaine 1%/ Epi (Mdv) 20 ml) 20 ml ONCE INJ ; Start 04/11/18 at 08:00; Stop 04/11/18 at 12:00 VTE Prophylaxis Risk score [place] [facility] [place] risk: 5 SCD applied (from [facility] [place] No SCD contraindication: other Lines/Catheters IV Catheter Type: Robles in Place: No Assessment/Plan Hospital Course Subjective Patient still having nausea and vomiting when trying to eat food, also having diarrhea still, is able to tolerate some fluid intake though Objective Physical exam General: Patient is laying in bed and answers questions appropriately Mentation: Patient is alert and oriented 4, Head: Normocephalic atraumatic Eyes: EOMI, pupils reactive to light Neck: Supple, nontender, midline Respiratory: Clear to auscultation bilaterally Cardiovascular: regular rate, no obvious murmurs Gastrointestinal: non-tender to palpation, bowel sounds heard. Neurological: Moves all extremities spontaneously Skin: No new skin lesions Assessment/Plan 1. Acute gastroenteritis - still with vomiting and diarrhea - stool studies ordered - will provide supportive care - EGD from last admission reports gastritis and negative for H.pylori -Added Carafate, -Empiric Cipro Flagyl as symptoms have not improved at all -CT abdomen pelvis with oral contrast, showing possible constriction from lap band. -Even though patient can tolerate water, very mild IV hydration due to can persistent diarrhea and vomiting 2. Diastolic HF - Lasix continued - BNP noted - CXR does not appear overloaded, but patient does admit to swelling in leg that are more than usual - Cardiology on board and appreciate recommendations 3. CKD - Patient states baseline Cr is 2.3. She was seen recently by her outpatient fish farmer, Dr Ward - Has been taking Naproxen and advised to discontinue - avoid nephrotoxic agents 4. Atrial fibrillation - rate controlled - continue Xarelto 5. Iron deficiency anemia - continue home PO supplements 6. hypothyroidism - continue replacement - TSH noted 7. Asthma - will try Singulair 8. Disposition - Dr Mathews consulted for possible lap band constriction. Patient's surgeon does not go to this hospital. will attempt lap band deflation today MELANIE YOUNG Apr 11, 2018 11:27
--- NOTE | 2018-04-11 12:16 | CONS ---
Assessment/Plan Cardiology Heart Failure Type: Chronic Heart Failure Type: Diastolic Assessment/Plan Hospital Course (Demo Recall) Chronic diastolic congestive heart failure, appears well compensated Gastroenteritis Preserved ejection fraction Paroxysmal atrial fibrillation History of pacemaker Hypertension Acute kidney injury with history of CKD Possible lap band malfunction -Patient denies symptoms of shortness of breath or increased lower extremity edema -Continue maintenance diuretics as tolerated -Continue rate control and anticoagulation as tolerated Consultation Date/Type/Reason Admit Date/Time Apr 06, 2018 at 17:10 Initial Consult Date 04/10/18 Type of Consult Cardiology Requesting Provider: MELANIE YOUNG Date/Time of Note DATE: 04/11/18 TIME: 12:15 24 HR Interval Summary Free Text/Dictation Denies chest pain, shortness of breath, palpitations Exam/Review of Systems Vital Signs Vitals Vital Signs Date Temp Pulse Resp B/P (MAP) Pulse Ox O2 O2 Flow FiO2 Time Delivery Rate 04/11/18 98.2 83 19 132/63 95 11:16 (86) 04/10/18 21 10:39 04/10/18 Room Air 06:01 Intake and Output 04/10/18 04/10/18 04/11/18 1515:00 23:00 07:00 IntakeIntake Total 200 ml 850 ml BalanceBalance 200 ml 850 ml Exam Constitutional: alert, oriented (No apparent distress, no dyspnea with speaking) Respiratory: other (Coarse breath sounds bilaterally, no wheezing) Cardiovascular: regular rate and rhythm (S1-S2 heard) Gastrointestinal: soft, non-tender, bowel sounds Extremities: edema Labs Result Diagram: 04/11/18 0529 04/11/18 0529 Results 24hrs Laboratory Tests Test 04/11/18 05:29 White Blood Count 5.2 Red Blood Count 3.77 L Hemoglobin 10.4 L Hematocrit 34.6 L Mean Corpuscular Volume 91.8 Mean Corpuscular Hemoglobin 27.6 L Mean Corpuscular Hemoglobin Concent 30.1 L Red Cell Distribution Width 18.8 H Platelet Count 167 Mean Platelet Volume 11.1 H Immature Granulocytes % 0.200 Neutrophils % 72.3 Lymphocytes % 16.2 Monocytes % 7.1 Eosinophils % 3.6 Basophils % 0.6 Nucleated Red Blood Cells % 0.6 H Immature Granulocytes # 0.010 Neutrophils # 3.8 Lymphocytes # 0.9 Monocytes # 0.4 Eosinophils # 0.2 Basophils # 0.0 Nucleated Red Blood Cells # 0.0 Sodium Level 142 Potassium Level 3.6 Chloride Level 103 Carbon Dioxide Level 31 Anion Gap 8 Blood Urea Nitrogen 18 Creatinine 2.01 H Est Glomerular Filtrat Rate mL/min 30 L Glucose Level 111 Calcium Level 9.0 Phosphorus Level 3.5 Magnesium Level 2.1 Medications Medications Current Medications Alprazolam (Xanax) 2 mg DAILY PRN PO ANXIETY; Start 04/06/18 at 17:30 Amiodarone HCl (Cordarone) 200 mg DAILY PO Last administered on 04/11/18 08:34; Admin Dose 200 MG; Start 04/07/18 at 09:00 Atenolol (Tenormin) 50 mg DAILY PO Last administered on 04/11/18 08:34; Admin Dose 50 MG; Start 04/07/18 at 09:00 Cyclobenzaprine HCl (Flexeril) 10 mg QHS PO Last administered on 04/10/18 20:00; Admin Dose 10 MG; Start 04/06/18 at 22:00 Ferrous Sulfate (Ferrous Sulfate (Ec)) 325 mg BID PO Last administered on 04/11/18 08:34; Admin Dose 325 MG; Start 04/06/18 at 21:00 Levothyroxine Sodium (Synthroid) 100 mcg BEFORE BREAKFAST PO Last administered on 04/11/18 06:17; Admin Dose 100 MCG; Start 04/07/18 at 07:00 Albuterol (Proventil 0.083% (Neb)) 2.5 mg Q2H RESP THERAPY PRN HHN SHORTNESS OF BREATH Last administered on 04/10/18at 10:41; Admin Dose 2.5 MG; Start 04/06/18 at 17:30 IV Flush (NS 3 ml) 3 ml PER PROTOCOL IV ; Start 04/06/18 at 17:30 Ondansetron HCl (Zofran Inj) 4 mg Q6H PRN IV NAUSEA/VOMITING Last administered on 04/09/18at 13:00; Admin Dose 4 MG; Start 04/06/18 at 17:30 Nitroglycerin (Nitroglycerin (Sl Tab) 0.4 Mg) 1 tab Q5M PRN SL .CHEST PAIN; Start 04/06/18 at 17:30 Acetaminophen (Tylenol Tab) 650 mg Q6H PRN PO .PAIN 1-3 OR TEMP; Start 04/06/18 at 17:30 Morphine Sulfate (morphine) 2 mg Q4H PRN IV .PAIN 7-10; Start 04/06/18 at 17:30 Docusate Sodium (Colace) 100 mg Q12H PRN PO .CONSTIPATION; Start 04/06/18 at 17:30 Magnesium Hydroxide (Milk Of Mag) 30 ml DAILY PRN PO .CONSTIPATION; Start 04/06/18 at 17:30 Rivaroxaban (Xarelto) 15 mg WITH DINNER PO Last administered on 04/10/18 17:47; Admin Dose 15 MG; Start 04/07/18 at 18:00 Gabapentin (Neurontin) 300 mg QHS PO Last administered on 04/10/18 20:00; Admin Dose 300 MG; Start 04/06/18 at 21:00 Pantoprazole (Protonix Tab) 40 mg BID@06,18 PO Last administered on 04/11/18 06:17; Admin Dose 40 MG; Start 04/07/18 at 06:00 Tramadol HCl (Ultram) 50 mg Q6H PRN PO MODERATE PAIN LEVEL 4-6; Start 04/06/18 at 19:00 Atorvastatin Calcium (Lipitor) 10 mg DAILY@21 PO Last administered on 04/10/18 20:01; Admin Dose 10 MG; Start 04/07/18 at 21:00 Furosemide (Lasix) 40 mg DAILY PO Last administered on 04/11/18 08:34; Admin Dose 40 MG; Start 04/08/18 at 09:00 Montelukast Sodium (Singulair) 10 mg HS PO Last administered on 04/10/18 20:01; Admin Dose 10 MG; Start 04/08/18 at 21:00 Sodium Chloride (Deep Sea) 2 spray Q4 PRN NASAL congestion; Start 04/08/18 at 10:00 Sucralfate (Carafate Susp) 1 gm QID PO Last administered on 04/11/18 08:34; Admin Dose 1 GM; Start 04/09/18 at 13:00 Ciprofloxacin/ Dextrose 200 ml @ 200 mls/hr Q12 IVPB Last administered on 04/11/18 08:37; Admin Dose 200 MLS/HR; Start 04/09/18 at 12:00 Metronidazole 100 ml @ 100 mls/hr Q8 IVPB Last administered on 04/11/18 06:16; Admin Dose 100 MLS/HR; Start 04/09/18 at 14:00 Zolpidem Tartrate (Ambien) 10 mg HS PRN PO INSOMNIA Last administered on 04/10/18at 20:06; Admin Dose 10 MG; Start 04/09/18 at 12:00 Madi Lewis DO Apr 11, 2018 12:16
--- NOTE | 2018-04-11 13:13 | PN ---
Date/Time of Note Date/Time of Note DATE: 04/11/18 TIME: 13:08 Assessment/Plan Lines/Catheters IV Catheter Type (from Nrs): Robles in Place (from Nrs): No Assessment/Plan Chief Complaint/Hosp Course 1. Abdominal pain, nausea, vomiting diarrhea: concern for lap band slippage per CT: On review lap band appears to be in appropriate position however, may be too tight. Discussed with patient and will deflate the band completely. -deflate band today -eventual f/u w primary sx team -supportive tx -med mgt for +stool studies 2. CHF hx: -cards optimization 3. CKD: -judicious fluids -limit nephrotoxic meds 4. Morbid obesity: bmi 44 -diet and exercise optimization -encourage weight loss -f/u w primary sx team for further surgical options for wt loss (conversion to sleeve, etc.) 5.Hypochromic anemia: -monitor -transfuse as needed 6. Afib: controlled -rate conrol -anticoags 7. Hypothryoidism& asthma hx: -med mgt Thank you. Patient seen and examined in collaboration with Dr. Raudel Mathews. Subjective 24 Hr Interval Summary Still with episodes of vomiting. Lap band deflation today. No fevers, chills, sob, congested cough, cp, palpitations, charles, dizziness, diarrhea, dysuria. Exam/Review of Systems Vital Signs Vitals Vital Signs Date Temp Pulse Resp B/P (MAP) Pulse Ox O2 O2 Flow FiO2 Time Delivery Rate 04/11/18 80 12:29 04/11/18 98.2 19 132/63 95 11:16 (86) 04/10/18 21 10:39 04/10/18 Room Air 06:01 Intake and Output 04/10/18 04/10/18 04/11/18 1515:00 23:00 07:00 IntakeIntake Total 200 ml 850 ml BalanceBalance 200 ml 850 ml Exam Free Text/Dictation Constitutional: alert, oriented, obese Psych: nl mood/affect; No anxiety Head: normocephalic, atraumatic Eyes: nl conjunctiva, EOMI, nl lids, nl sclera ENMT: nl external ears & nose, nl lips & teeth, mucosa pink and moist Neck: supple, non-tender; No jvd, No masses Respiratory: normal air movement; No congested cough, No labored breathing Cardiovascular: regular rate and rhythm, nl pulses Gastrointestinal: soft, non-tender, tender (min: infraumbilical,), other (left lower quad lap band port) Genitourinary - Female: nl external genitalia Musculoskeletal: nl extremities to inspection, nl gait and stance Extremities: normal pulses Neurological: nl mental status, nl speech, nl strength Skin: No rash or lesions Lymph: nl lymph nodes Results Result Diagram: 04/11/18 0529 04/11/18 0529 ERENDIRA DEVLIN NP Apr 11, 2018 13:13
--- NOTE | 2018-04-11 17:36 | OPR ---
Date/Time of Note Date/Time of Note DATE: 04/11/18 TIME: 17:33 Operative Report Procedure Date: Apr 11, 2018 Preoperative Diagnosis Gastric blockage at lap band Postoperative Diagnosis Same Operation/Procedure Performed 1. Lap band adjustment with emptying the band fully 2. Local anesthetic [place], [id number] Surgeon Burak Rothman MD Brand Attendant Jessica Nixon, ADAM Anesthesia Type: other (Local) Estimated Blood Loss: none Transfusion none Specimen None Grafts/Implants none Tubes/Drains None Complications none Pt Condition Post Procedure: stable Disposition: other (In her own room) Indications Per consult note. As usual and customary risks, benefits, alternatives have been reviewed with patient and she agrees to proceed. Procedure Description Patient was placed supine on her own bed. Area was prepped and draped sterilely. Timeout was performed. Local anesthetic was injected at surgical site. Warren needle was inserted through the skin and after multiple attempts the port was entered. The port is twisted on the abdominal wall. I was able to empty about 6 mL's of saline. Patient is agreeable to fully emptying her band. The needle was removed and pressure dressing was applied. Patient tolerated procedure well. BURAK ROTHMAN MD Apr 11, 2018 17:36
[2018-04-11] MEDS: RIVAROXABAN 15 MG TABLET PO SCH (17:44)
[2018-04-11] MEDS: ATORVASTATIN 10 MG TAB PO SCH (20:18)
[2018-04-11] MEDS: GABAPENTIN 300 MG CAP PO SCH (20:18)
[2018-04-11] MEDS: MONTELUKAST 10 MG TAB PO SCH (20:18)
[2018-04-11] MEDS: CYCLOBENZAPRINE 10 MG TAB PO SCH (20:18)
[2018-04-11] MEDS: ZOLPIDEM 5 MG TAB PO PRN (20:26)
[2018-04-12] VITALS (8 sets, daily range): BP systolic 112–127; BP diastolic 58–94; PULSE 69–80; RESP 20
[2018-04-12] MEDS: PANTOPRAZOLE (EC) 40 MG TAB PO SCH (06:04)
[2018-04-12] MEDS: LEVOTHYROXINE 100 MCG TAB PO SCH (06:04)
[2018-04-12] MEDS: metroNIDAZOLE 500 MG/NS (PMX) 100 ML IVPB SCH (06:06)
[2018-04-12] MEDS: ATENOLOL 50 MG TAB PO SCH (09:21)
[2018-04-12] MEDS: SUCRALFATE (100 MG/ML) 10ML CUP PO SCH ×2 (09:21→12:51)
[2018-04-12] MEDS: FUROSEMIDE 40 MG TAB PO SCH (09:22)
[2018-04-12] MEDS: AMIODARONE 200 MG TAB PO SCH (09:22)
[2018-04-12] MEDS: FERROUS SULFATE (EC) 325 MG TAB PO SCH (09:22)
[2018-04-12] MEDS ORDERED: RIVA15TA PO (10:35)
--- NOTE | 2018-04-12 10:38 | PDOCDIS ---
Discharge Instructions CONDITION [id number] Patient Condition: [id number] Stable FOLLOW UP/APPOINTMENTS Follow-up Plan Please continue all home medications. Please follow-up with surgeon who veronica ginally inserted lap band for removal. Please can follow-up with her control clerk and primary care provider as soon as possible. MELANIE YOUNG Apr 12, 2018 10:38
--- NOTE | 2018-04-12 10:41 | DS ---
Date/Time of Note Date/Time of Note DATE: 04/12/18 TIME: 10:41 Discharge Summary Admission/Discharge Info Admit Date/Time Apr 06, 2018 at 17:10 Discharge Date/Time Patient Condition: Stable Hospital Course Patient is a -[place] female with a past medical history significant for congestive heart failure, chronic kidney disease, atrial fibrillation, iron defi ciency anemia, hypothyroidism who presents to [facility] for persistent nausea vomiting and diarrhea. Patient had extensive workup including multiple solutions to possible gastroenteritis including antibiotics. However CT did not show any acute issues, did find that patient's lap band had possibly been causing her some discomfort. General surgery was consulted and they deflated the lap band which instantly resolved all of the patient's issues. 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 There will be no changes to medications at this time and patient will continue all home meds. Discharge diagnosis Nausea and vomiting secondary to lap band constriction Diastolic congestive heart failure, stable Chronic kidney disease Atrial fibrillation Iron deficiency anemia Hypothyroidism Home Meds Active Scripts Rivaroxaban* (Xarelto*) 15 Mg Tablet, 15 MG PO WITH DINNER for 30 Days, TAB Prov:MELANIE YOUNG 04/12/18 Omeprazole* (Omeprazole*) 20 Mg Capsule.dr, 20 MG PO BID, #60 CAP 2 Refills Prov:MELANIE YOUNG 07/18/17 Ferrous Sulfate* (Ferrous Sulfate*) 325 Mg Tabec, 325 MG PO BID, #60 TAB 2 Refills Prov:MELANIE YOUNG 07/18/17 Albuterol Sulfate* (Proair HFA*) 8.5 Gm Hfa.aer.ad, 2 PUFF INH Q4, #1 INHALER Prov:CHIP JIMENEZ MD 05/08/17 Reported Medications Atenolol* (Atenolol*) 50 Mg Tablet, 50 MG PO DAILY, #30 TAB 04/06/18 Alprazolam* (Xanax*) 2 Mg Tablet, 2 MG PO DAILY PRN for ANXIETY, TAB 03/15/17 Gabapentin* (Gabapentin*) 300 Mg Capsule, 300 MG PO TID, #90 CAP 03/15/17 Simvastatin* (Zocor*) 20 Mg Tablet, 20 MG PO QHS, #30 TAB 03/15/17 Furosemide* (Furosemide*) 20 Mg Tablet, 20 MG PO DAILY, #60 TAB 03/15/17 Levothyroxine Sodium* (Levothyroxine Sodium*) 100 Mcg Tablet, 100 MCG PO BEFORE BREAKFAST, #30 TAB 03/15/17 Cyclobenzaprine Hcl* (Cyclobenzaprine Hcl*) 10 Mg Tablet, 10 MG PO QHS, #60 TAB 03/15/17 Allopurinol* (Allopurinol*) 300 Mg Tablet, 300 MG PO DAILY, TAB 03/15/17 Ergocalciferol (Vitamin D2) (VITAMIN D2) 50,000 Unit Capsule, 03352 UNIT PO Q7D, CAP 03/15/17 Potassium Chloride (Klor-Con) 10 Meq Tablet.sa, 10 MEQ PO DAILY, TAB.SA 03/15/17 Amiodarone Hcl* (Amiodarone Hcl*) 200 Mg Tablet, 200 MG PO DAILY, #30 TAB 03/15/17 Discontinued Scripts Cyclobenzaprine Hcl* (Cyclobenzaprine Hcl*) 10 Mg Tablet, 10 MG PO TID, #15 TAB Prov:CHIP JIMENEZ MD 01/22/18 Atenolol* (Atenolol*) 50 Mg Tablet, 25 MG PO DAILY, #30 TAB Prov:MELANIE YOUNG 07/18/17 Follow-up Plan Please continue all home medications. Please follow-up with surgeon who or iginally inserted lap band for removal. Please can follow-up with her green chainer and primary care provider as soon as possible. Primary Care Provider Not On Staff Doctor Time spent on discharge: > 30 minutes Pending Labs Laboratory Tests Test 04/12/18 09:24 White Blood Count 5.4 10^3/ul (4.8-10.8) Red Blood Count 3.96 10^6/ul (4.20-5.40) Hemoglobin 10.8 g/dl (12.0-16.0) Hematocrit 36.4 % (37.0-47.0) Mean Corpuscular Volume 91.9 fl (82.0-101.0) Mean Corpuscular Hemoglobin 27.3 pg (29.0-33.0) Mean Corpuscular Hemoglobin Concent 29.7 g/dl (32.0-37.0) Red Cell Distribution Width 18.8 % (11.5-14.5) Platelet Count 192 10^3/UL (140-415) Mean Platelet Volume 11.2 fl (7.4-10.4) Immature Granulocytes % 0.400 % (0.001-0.429) Neutrophils % 69.4 % (39.0-77.0) Lymphocytes % 16.8 % (15.0-51.0) Monocytes % 7.6 % (0.0-11.0) Eosinophils % 5.2 % (0.0-7.0) Basophils % 0.6 % (0.0-2.0) Nucleated Red Blood Cells % 0.0 /100WBC (0.0-0.0) Immature Granulocytes # 0.020 10^3/ul (0.0-0.031) Neutrophils # 3.8 10^3/ul (1.6-7.5) Lymphocytes # 0.9 10^3/ul (0.8-2.9) Monocytes # 0.4 10^3/ul (0.3-0.9) Eosinophils # 0.3 10^3/ul (0.0-0.5) Basophils # 0.0 10^3/ul (0.0-0.1) Nucleated Red Blood Cells # 0.0 10^3/ul (0.0-0.0) MELANIE YOUNG Apr 12, 2018 10:41
--- NOTE | 2018-04-12 11:25 | PN ---
Date/Time of Note Date/Time of Note DATE: 04/12/18 TIME: 11:23 Assessment/Plan Lines/Catheters IV Catheter Type (from Nrsg): Saline Lock Robles in Place (from Nrsg): No Assessment/Plan Chief Complaint/Hosp Course 1. Abdominal pain, nausea, vomiting diarrhea: concern for lap band slippage per CT: On review lap band appears to be in appropriate position however, may be too tight. Discussed with patient and will deflate the band completely. Status post lap band deflation 04/11/18; abdominal pain, nausea vomiting resolved -eventual f/u w primary sx team -supportive tx -med mgt for +stool studies 2. CHF hx: -cards optimization 3. CKD: -judicious fluids -limit nephrotoxic meds 4. Morbid obesity: bmi 44 -diet and exercise optimization -encourage weight loss -f/u w primary sx team for further surgical options for wt loss (conversion to sleeve, etc.) 5.Hypochromic anemia: -monitor -transfuse as needed 6. Afib: controlled -rate conrol -anticoags 7. Hypothryoidism& asthma hx: -med mgt Thank you. Patient seen and examined in collaboration with Dr. Raudel Mathews. Subjective 24 Hr Interval Summary Nausea and vomiting resolved. Status post lap band adjustment (complete emptying of balloon). No fevers, chills, sob, congested cough, cp, palpitations, charles, dizziness, nausea, vomiting, diarrhea, dysuria. Exam/Review of Systems Vital Signs Vitals Vital Signs Date Temp Pulse Resp B/P (MAP) Pulse Ox O2 O2 Flow FiO2 Time Delivery Rate 04/12/18 70 08:40 04/12/18 97.8 112/58 90 Room Air 08:21 (76) 04/12/18 20 04:28 04/10/18 21 10:39 Intake and Output 04/11/18 04/11/18 04/12/18 1414:59 22:59 06:59 IntakeIntake Total 800 ml 800 ml 700 ml BalanceBalance 800 ml 800 ml 700 ml Exam Free Text/Dictation Constitutional: alert, oriented, obese Psych: nl mood/affect; No anxiety Head: normocephalic, atraumatic Eyes: nl conjunctiva, EOMI, nl lids, nl sclera ENMT: nl external ears & nose, nl lips & teeth, mucosa pink and moist Neck: supple, non-tender; No jvd, No masses Respiratory: normal air movement; No congested cough, No labored breathing Cardiovascular: regular rate and rhythm, nl pulses Gastrointestinal: soft, non-tender, non-tender, other ( left lower quad lap band port) Genitourinary - Female: nl external genitalia Musculoskeletal: nl extremities to inspection, nl gait and stance Extremities: normal pulses Neurological: nl mental status, nl speech, nl strength Skin: No rash or lesions Lymph: nl lymph nodes Results Result Diagram: 04/12/1892304/12/18923 ERENDIRA DEVLIN NP Apr 12, 2018 11:25
== END 2018-04-12 14:16 | disposition home or self-care (01) | DRG 326 ==
LOC: E/R 11:53 → 6WM 17:10
PROVIDERS: ADMIT Internal Medicine; ATTEND Internal Medicine
PROC: 0DW63CZ Revision of Extraluminal Device in Stomach, Percutaneous Approach (ICD-10-PCS; principal; 2018-04-11)
DX: K95.09 Other complications of gastric band procedure (principal); I50.33 Acute on chronic diastolic (congestive) heart failure; I13.0 Hypertensive heart and chronic kidney disease with heart failure and stage 1 through stage 4 chronic kidney disease, or unspecified chronic kidney disease; Z68.41 Body mass index [BMI] 40.0-44.9, adult; K52.9 Noninfective gastroenteritis and colitis, unspecified; N18.9 Chronic kidney disease, unspecified; I48.91 Unspecified atrial fibrillation; Z95.0 Presence of cardiac pacemaker; D50.9 Iron deficiency anemia, unspecified; E03.9 Hypothyroidism, unspecified; J45.909 Unspecified asthma, uncomplicated; E66.01 Morbid (severe) obesity due to excess calories; Z79.02 Long term (current) use of antithrombotics/antiplatelets
CPT/HCPCS: 36415; 71045; 74176; 80048; 80053; 80061; 83690; 83735; 83880; 84100; 84443; 84484; 85025; 85610; 87177; 93005; 93306; 94640; 96374; 97162; 97167; J0744; J1940; J2405; J7030

== ENCOUNTER 2018-05-01 13:51 | Emergency (ER) | payer OTHER ==
[~2018-05-01] VITALS: Ht 170.2 cm; Wt 121.8 kg
[~2018-05-01 13:51] MED LIST changes: +RIVA15TA PO
[2018-05-01 15:02] VITALS: Ht 170.2 cm; Wt 121.8 kg
--- NOTE | 2018-05-01 17:05 | ERD ---
ER Documentation Chief Complaint Chief Complaint AP WITH V/D X 4 MONTHS HPI The patient is a 62-year-old female, presenting to the ER because of intermittent vomiting for more than 4 months, was admitted to the hospital a month ago and had extensive workup that was unremarkable. She was advised to follow-up with her bariatric surgeon to evaluate the lap band. 3D follow-up with her surgeon and plan to have it removed soon. She already had EGD last year that was unremarkable. She denies fever, chills, neck pain, complains of epigastric abdominal pain that radiated up to her sternal area, complains of loose stools intermittently for the last month, denies any hematemesis/hematochezia. She does not smoke nor drink Medical history: Atrial fibrillation, hypertension, anxiety, dyslipidemia, hypothyroid disease, history of CVA, asthma history of CHF, chronic kidney disease, anemia Past surgical history: Benign brain tumor, pacemaker ROS All systems reviewed and are negative except as per history of present illness. Medications Home Meds Active Scripts Ondansetron (Ondansetron Odt) 4 Mg Tab.rapdis, 4 MG PO Q6H PRN for NAUSEA AND/OR VOMITING, #10 TAB Prov:CHIP JIMENEZ MD 05/01/18 Rivaroxaban* (Xarelto*) 15 Mg Tablet, 15 MG PO WITH DINNER for 30 Days, TAB Prov:MELANIE YOUNG 04/12/18 Omeprazole* (Omeprazole*) 20 Mg Capsule.dr, 20 MG PO BID, #60 CAP 2 Refills Prov:MELANIE YOUNG 07/18/17 Ferrous Sulfate* (Ferrous Sulfate*) 325 Mg Tabec, 325 MG PO BID, #60 TAB 2 Refills Prov:MELANIE YOUNG 07/18/17 Albuterol Sulfate* (Proair HFA*) 8.5 Gm Hfa.aer.ad, 2 PUFF INH Q4, #1 INHALER Prov:CHIP JIMENEZ MD 05/08/17 Reported Medications Atenolol* (Atenolol*) 50 Mg Tablet, 50 MG PO DAILY, #30 TAB 04/06/18 Alprazolam* (Xanax*) 2 Mg Tablet, 2 MG PO DAILY PRN for ANXIETY, TAB 03/15/17 Gabapentin* (Gabapentin*) 300 Mg Capsule, 300 MG PO TID, #90 CAP 03/15/17 Simvastatin* (Zocor*) 20 Mg Tablet, 20 MG PO QHS, #30 TAB 03/15/17 Furosemide* (Furosemide*) 20 Mg Tablet, 20 MG PO DAILY, #60 TAB 03/15/17 Levothyroxine Sodium* (Levothyroxine Sodium*) 100 Mcg Tablet, 100 MCG PO BEFORE BREAKFAST, #30 TAB 03/15/17 Cyclobenzaprine Hcl* (Cyclobenzaprine Hcl*) 10 Mg Tablet, 10 MG PO QHS, #60 TAB 03/15/17 Allopurinol* (Allopurinol*) 300 Mg Tablet, 300 MG PO DAILY, TAB 03/15/17 Ergocalciferol (Vitamin D2) (VITAMIN D2) 50,000 Unit Capsule, 28999 UNIT PO Q7D, CAP 03/15/17 Potassium Chloride (Klor-Con) 10 Meq Tablet.sa, 10 MEQ PO DAILY, TAB.SA 03/15/17 Amiodarone Hcl* (Amiodarone Hcl*) 200 Mg Tablet, 200 MG PO DAILY, #30 TAB 03/15/17 Allergies Allergies: Coded Allergies: aspirin (Unverified Allergy, Mild, INTOLERANCE, 04/12/18) enalaprilat (Unverified Allergy, Mild, COUGHING, 04/12/18) PMhx/Soc History of Surgery: Yes (BENIGN BRAIN TUMOR SP REMOVAL, PACEMAKER PLACEMENT, LAP BAND) Anesthesia Reaction: No Hx Neurological Disorder: Yes (CVA 1995) Hx Respiratory Disorders: Yes (BRONCHIAL ASTHMA) Hx Cardiac Disorders: Yes (HTN, AFIB, HIGH CHOLESTEROL) Hx Psychiatric Problems: No Hx Miscellaneous Medical Probl: Yes (atrial fibrillation, diastolic CHF, pacemaker, CKD, HTN, CVA, asthma, iron ) Hx Alcohol Use: No Hx Substance Use: No Hx Tobacco Use: Yes (30 YEARS AGO) Physical Exam Vitals Vital Signs Date Temp Pulse Resp B/P (MAP) Pulse Ox O2 O2 Flow FiO2 Time Delivery Rate 05/01/18 98.3 79 18 121/83 96 15:02 (96) Physical Exam Const: No acute distress. Head: Atraumatic. Eyes: Normal Conjunctiva. ENT: Normal External Ears, Nose and Mouth. Neck: Full range of motion. No meningismus. Resp: Clear to auscultation bilaterally. Cardio: Regular rate and rhythm. Abd: Soft, non distended, normal bowel sounds, mild epigastric discomfort, no right lower, right upper quadrant, rigidity, CVA tenderness Skin: No petechiae or rashes. Back: No midline or flank tenderness. Ext: No cyanosis, or edema. Neur: Awake and alert. No focal deficit Psych: Normal Mood and Affect. Result Diagram: 05/01/18 1731 05/01/18 1731 Results 24 hrs Laboratory Tests Test 05/01/18 17:31 White Blood Count 7.6 10^3/ul Red Blood Count 4.97 10^6/ul Hemoglobin 13.7 g/dl Hematocrit 44.3 % Mean Corpuscular Volume 89.1 fl Mean Corpuscular Hemoglobin 27.6 pg Mean Corpuscular Hemoglobin Concent 30.9 g/dl Red Cell Distribution Width 19.1 % Platelet Count 248 10^3/UL Mean Platelet Volume 10.7 fl Immature Granulocytes % 0.400 % Neutrophils % 71.1 % Lymphocytes % 18.0 % Monocytes % 7.0 % Eosinophils % 2.8 % Basophils % 0.7 % Nucleated Red Blood Cells % 0.3 /100WBC Immature Granulocytes # 0.030 10^3/ul Neutrophils # 5.4 10^3/ul Lymphocytes # 1.4 10^3/ul Monocytes # 0.5 10^3/ul Eosinophils # 0.2 10^3/ul Basophils # 0.1 10^3/ul Nucleated Red Blood Cells # 0.0 10^3/ul Sodium Level 144 mmol/L Potassium Level 4.6 mmol/L Chloride Level 102 mmol/L Carbon Dioxide Level 27 mmol/L Anion Gap 15 Blood Urea Nitrogen 28 mg/dl Creatinine 2.44 mg/dl Est Glomerular Filtrat Rate mL/min 24 mL/min Glucose Level 91 mg/dl Calcium Level 10.1 mg/dl Total Bilirubin 0.4 mg/dl Direct Bilirubin 0.00 mg/dl Indirect Bilirubin 0.4 mg/dl Aspartate Amino Transf (AST/SGOT) 35 IU/L Alanine Aminotransferase (ALT/SGPT) < 6 IU/L Alkaline Phosphatase 141 IU/L Troponin I < 0.012 ng/ml Total Protein 8.9 g/dl Albumin 4.6 g/dl Globulin 4.30 g/dl Albumin/Globulin Ratio 1.06 Lipase 124 U/L Current Medications Medications Dose Sig/Vidhi Start Time Status Last (Trade) Ordered Route PRN Stop Time Admin Dose Reason Admin Ondansetron 4 mg ONCE STAT 05/01/18 DC HCl (Zofran IV 17:43 Inj) 05/01/18 17:44 Ondansetron 4 mg ONCE STAT 05/01/18 DC 05/01/18 HCl (Zofran ODT 18:13 18:15 Odt) 05/01/18 18:15 Procedures/[place] [id number] Radiology Main Line: [phone] DIAGNOSTIC IMAGING REPORT Patient: MARIELENA DARLING : 1955 Age: 62 Sex: F MR #: [id number] DOS: 05/01/18 1749 Ordering MD: CHIP JIMENEZ MD Location: E/R Room/Bed: PROCEDURE: CT Abdomen and Pelvis without contrast. CLINICAL INDICATION: Vomiting TECHNIQUE: CT scan of the abdomen and pelvis was performed on a multi-detector high-resolution CT scanner. The patient was scanned without contrast administration. Coronal and sagittal reformatted images were obtained from the axial source images. Images were reviewed on a high-resolution PACS workstation. The total exam CTDI equals 23 mGy and the total exam DLP equals 1374 mGy-cm. DICOM images are available. 3-D reconstructions were not performed. One or more of the following dose reduction techniques were utilized: 1.) Automated exposure control 2.) Adjustment of the mA +/- kV according to patient's size 3.) Use of iterative reconstruction technique. COMPARISON: 04/09/2018 FINDINGS: CT abdomen: Heart (where visible): Unremarkable. Lung bases: No evidence of pneumonia, mass, pleural effusion. Liver: Normal attenuation. No visible focal mass. Biliary ductal system: No evidence of significant dilatation. Gallbladder: No wall thickening, visible intraluminal stone, or pericholecystic inflammatory change. Pancreas: Unremarkable. Stomach: No identifiable focal mass or gross wall thickening. Adjustable lap band remains present. There is no evidence of esophageal dilatation. There is a moderate volume of food in the stomach.. Spleen: No gross splenomegaly. Abdominal colon: Normal in caliber and course. Abdominal small bowel: Normal in caliber, course, and mucosal pattern. Adrenal glands: No visible masses. Right Kidney: Normal in size and contour without focal mass or collecting syste m dilatation. No visible calcifications. Left kidney: Normal in size and contour without focal mass or collecting system dilatation. No visible calcifications. Abdominal aorta: Normal caliber. Moderately severe wall calcification is evident diffusely Lymph nodes: No significantly enlarged nodes. CT pelvis: Pelvic colon: Normal in caliber and course. Scattered diverticula. No evidence of inflammatory change. Pelvic small bowel: Normal in caliber and course. Appendix: Identified. No evidence of inflammation. Urinary bladder: Normal in size and contour without visible wall thickening. Reproductive structures: The uterus is small. There are no adnexal masses. There is no free fluid. Bony structures included in the scan: There is severe degenerative disc disease at L3-L4 and L4-L5. IMPRESSION: 1. Adjustable lap band in place without evidence of esophageal dilatation. 2. Normal volume of food within the stomach. 3. Moderately severe aortic atherosclerosis. 4. Severe disc disease at L3-L4 and L4-L5 RPTAT:AAJJ Physician Ibis Date Time Electronically viewed and signed by Physician Ibis on 05/01/2018 18:43 GW/ CC: CHIP JIMENEZ MD [id number] [place] [id number] Radiology Main Line: [phone] DIAGNOSTIC IMAGING REPORT Patient: MARIELENA DARLING : 1955 Age: 62 Sex: F MR #: [id number] DOS: 05/01/18 1719 Ordering MD: CHIP JIMENEZ MD Location: E/R Room/Bed: PROCEDURE: XR Chest. CLINICAL INDICATION: Cough TECHNIQUE: Single frontal view of the chest was obtained COMPARISON: Chest radiograph 04/06/2018 CR CHEST 04/03/2016; CR CHEST 10/24/2014; CR CHEST 09/24/2014 FINDINGS: Persistent cardiomegaly with no evidence of congestion. No discrete focal consolidation. No pneumothorax or pleural effusions. Left-sided cardiac pacer with 2 leads are again noted. Degenerative change of the shoulders bilaterally. IMPRESSION: Persistent cardiomegaly without acute cardiopulmonary process. RPTAT: AA Physician Brigette Date Time Electronically viewed and signed by acosta Mccullough Physician on 05/01/2018 18:23 rV/ CC: CHIP JIMENEZ MD [id number] EKG: Read by emergency physician Rate/Rhythm: Paced Rhythm at 80 beats/min MEDICAL MAKING DECISION: The patient is a 62-year-old female, presenting with chronic abdominal pain of unclear etiology. She was treated with Zofran 4 mg IV for nausea with good response, stable outpatient follow-up The differential diagnoses considered include but are not limited to lap band related complication, cholelithiasis, cholecystitis, choledocholithiasis, cholangitis, pancreatitis, hepatitis, gastritis, peptic ulcer disease, gastric ulcer, appendicitis, cystitis, diverticulitis, partial small bowel obs truction. Departure Diagnosis: Primary Impression: Abdominal pain Condition: Good Comments She was discharged with Zofran ODT I discussed the findings with the patient. I advised the patient to follow-up with the primary physician or engineering instructor and LAP-BAND surgeon in about 2-3 days, sooner if needed and return if any concern. Disclaimer: Inadvertent spelling and grammatical errors are likely due to EHR/dictation software use and do not reflect on the overall quality of patient care. Also, please note that the electronic time recorded on this note does not necessarily reflect the actual time of the patient encounter. CHIP JIMENEZ MD May 01, 2018 17:05
[2018-05-01] MEDS ORDERED: ONDANSETRON 4 MG INJ IV STA (17:43)
[2018-05-01] MEDS ORDERED: ONDANSETRON (ODT) 4 MG TAB ODT STA (18:13)
[2018-05-01] MEDS ORDERED: ONDA4TAB14 PO (19:21)
[2018-05-01 19:57] VITALS: BP 125/84; PULSE 65; RESP 16
== END 2018-05-01 19:59 | disposition home or self-care (01) ==
LOC: E/R 13:51
DX: R10.13 Epigastric pain (principal); N18.9 Chronic kidney disease, unspecified; I13.0 Hypertensive heart and chronic kidney disease with heart failure and stage 1 through stage 4 chronic kidney disease, or unspecified chronic kidney disease; J45.909 Unspecified asthma, uncomplicated; I50.30 Unspecified diastolic (congestive) heart failure; R11.10 Vomiting, unspecified; Z86.73 Personal history of transient ischemic attack (TIA), and cerebral infarction without residual deficits; Z95.0 Presence of cardiac pacemaker; Z87.891 Personal history of nicotine dependence
CPT/HCPCS: 36415; 71045; 74176; 80053; 83690; 84484; 85025; 93005; Z7502; Z7610

== ENCOUNTER → 2018-07-30 | Outpatient (CLI) | payer OTHER ==
[~2018-07-30] MED LIST changes: +ONDA4TAB14 PO
--- NOTE | 2018-07-30 15:16 | RADRPT ---
PROCEDURE: Limited x-ray of both lower extremities. CLINICAL INDICATION: Bilateral leg pain. TECHNIQUE: Single frontal weightbearing view of both lower extremities was obtained from the hips t o the ankles. COMPARISON: None. FINDINGS: The right femur length is 69 cm. The left femur length is 69 cm. The right tibia length is 50 cm. The left tibia length is 50 cm. There is bilateral knee valgus deformity. IMPRESSION: 1. No leg length discrepancy. 2. Bilateral knee valgus deformity. RPTAT: QQ .Dave Cedeño MD, MD Date Time Electronically viewed and signed by .Dave Cedeño MD, on 07/30/2018 15:15 .R/
== END | disposition home or self-care (01) ==
LOC: HKI 10:23
PROVIDERS: ATTEND Orthopaedic Surgery Adult Reconstructive Orthopaedic Surgery
DX: M79.662 Pain in left lower leg (principal); M79.661 Pain in right lower leg
CPT/HCPCS: 77073